=== PATIENT | male | born 1935 | race Asian ===

== ENCOUNTER 2016-11-11 16:00 | Inpatient (IN) | payer MEDICARE, MEDICAID ==
[~2016-11-11] VITALS: Ht 167.6 cm; Wt 63.5 kg
[~2016-11-11 16:00] MED LIST changes: -ASPI81TA2 PO; -CETI-102 PO; -CINA30TA PO; -LEVO500T15 PO; -MUPI22OI7 TP; -PREG75CA PO; -SEVE800T8 PO
--- NOTE | 2016-11-11 16:05 | NUR ---
BIBRA FROM HD-- DUE TO RIGHT FOOR PAIN SP RIGHT FOOT FIFTH TOE AMPUTATION BY MD STOUT. 11/20, NON RADIATING. NO CHEST PAIN, NO SOB. PATIENT'S SKIN IS WARM TO TOUCH AND NON DIAPHORETIC. AFEBRILE. GOWNED PT AND PLACED ON TELE MONITOR
[2016-11-11 16:32] LABS: BASOPHILS % (AUTO) 0.6 % (0.0-2.0); EOSINOPHILS # (AUTO) 0.1 /CMM (0.0-0.7); EOSINOPHILS % (AUTO) 2.2 % (0.0-6.0); HEMATOCRIT 35 % (39-51); HEMOGLOBIN 10.6 g/dL (13.5-17.5); LYMPHOCYTES # (AUTO) 0.3 /CMM (0.8-4.8); LYMPHOCYTES % (AUTO) 7.7 % (20.0-44.0); MEAN CORPUSCULAR HEMOGLOBIN 26 PG (26.0-33.0); MEAN CORPUSCULAR HGB CONC 31 g/dl (31.0-36.0); MEAN CORPUSCULAR VOLUME 85 fL (80-96); MONOCYTES # (AUTO) 0.4 /CMM (0.1-1.30); MONOCYTES % (AUTO) 10.1 % (2.0-12.0); NEUTROPHILS # (AUTO) 3.2 /CMM (1.8-8.9); NEUTROPHILS % (AUTO) 79.4 % (43.0-81.0); PLATELET COUNT (AUTO) 138 /CMM (150-450); RDW COEFFICIENT OF VARIATION 17.6 (11.5-15.0); RED BLOOD CELL COUNT(AUTO) 4.05 MIL/uL (4.5-6.0)
[2016-11-11 16:45] LABS: CARBON DIOXIDE 34 mmol/L (21-32); CHLORIDE 101 mmol/L (98-107); CREATININE 3.4 mg/dL (0.6-1.3); GLUCOSE 130 mg/dL (74-106); POTASSIUM 3.7 mmol/L (3.5-5.1); SODIUM SERUM 138 mmol/L (136-145); UREA NITROGEN, BLOOD 33 mg/dL (7-18)
[2016-11-11 16:49] LABS: TROPONIN I 0.081 ng/mL (0.00-0.056)
[2016-11-11 16:52] LABS: ALANINE AMINOTRANSFERASE 10 U/L (12-78); ALBUMIN 2.6 g/dL (3.4-5.0); ALKALINE PHOSPHATASE 95 U/L (46-116); ASPARTATE AMINOTRANSFERASE 20 U/L (15-37); BILIRUBIN,DIRECT 0.2 mg/dL (0.0-0.2); BILIRUBIN,TOTAL 0.5 mg/dL (0.2-1.0); TOTAL PROTEIN, SERUM 8.9 g/dL (6.4-8.2)
[2016-11-11 17:20] LABS: INR 1.25 (0.87-1.13); PROTHROMBIN TIME 13.6 SECS (9.5-12.7)
[2016-11-11] MEDS ORDERED: MORPHINE SULFATE INJ 2 MG/ML DISP.SYRIN IV ONE (18:00)
[2016-11-11] MEDS ORDERED: ONDANSETRON HCL/PF 4 MG/2 ML VIAL ONE (18:00)
[2016-11-11] MEDS ORDERED: VANCOMYCIN 1 GM in IV D5W 250 ML IV ONE (18:00)
[2016-11-11] MEDS ORDERED: PIPERACILLIN /TAZOBACTAM 2.25 G in IV D5W 50 ML IV ONE (18:00)
[2016-11-11] MEDS ORDERED: ONDANSETRON HCL/PF - ER 4 MG/2 ML VIAL IV ONE (18:00)
[2016-11-11] MEDS ORDERED: MORPHINE SULFATE INJ 4 MG/ML DISP.SYRIN ONE (18:01)
[2016-11-11] MEDS ORDERED: MAG HYDROX/AL HYDROX/SIMETH 30 ML UDC PO PRN (18:30)
[2016-11-11] MEDS ORDERED: MAGNESIUM HYDROXIDE 30 ML UDC PO PRN (18:30)
[2016-11-11] MEDS ORDERED: ACETAMINOPHEN 325 MG TABLET PO PRN (18:30)
[2016-11-11] MEDS: CLOPIDOGREL BISULFATE 75 MG TABLET PO SCH ×2 (18:30→19:46)
[2016-11-11] MEDS ORDERED: Z GUARD REMEDY 2 OZ OINT TP PRN (18:30)
[2016-11-11] MEDS ORDERED: NIFEdipine XL 60 MG TAB PO SCH (18:30)
[2016-11-11] MEDS ORDERED: ONDANSETRON HCL/PF 4 MG/2 ML VIAL IVP PRN (18:30)
[2016-11-11] MEDS: PANTOPRAZOLE 40 MG TABLET.DR PO SCH ×2 (18:30→19:47)
[2016-11-11] MEDS ORDERED: AMLODIPINE BESYLATE 5 MG TABLET PO SCH (18:30)
[2016-11-11] MEDS ORDERED: HYDROCODONE/APAP 5/325MG 1 EACH TABLET PO PRN (18:30)
[2016-11-11] MEDS ORDERED: ZOLPIDEM TARTRATE 5 MG TABLET PO PRN (18:30)
--- NOTE | 2016-11-11 18:45 | NUR ---
patient's needs attended.Medicated forpain as ordered
--- NOTE | 2016-11-11 18:46 | NUR ---
Reportgiven to minh Villa
[2016-11-11] MEDS ORDERED: FEE PK DOSING 1 MIN EA MC ONE (18:50)
[2016-11-11] MEDS ORDERED: VANCOMYCIN 500 MG in IV D5W 100 ML IV PRN (19:00)
--- NOTE | 2016-11-11 19:40 | NUR ---
MS RN NOTE RECEIVED PATIENT FROM DAY SHIFT, PATIENT IS ALERT AND ORIENTEDX3, COMPLAINS OF PAIN ON RIGHT FOOT, GETTING OXYGEN 3L/MIN VIA NC. MULTIPLE DRY SCABS AND DISCOLORATION NOTED ON BLE, RIGHT TOE IS COVERED WITH SX DRESSING S/P PINKY TOE AMPUTATION, PER PATIENT DR SAID DO NOT OPEN IT UNTIL SEEN BY DR AGAIN, PICTURES TAKEN EXCEPT ON RIGHT TOE WOUND. IV ON LEFT FA IS PATENT AND INTACT, HL ONLY. AV SHUNT PRESENT ON LEFT THIGH. SRX2, BED IN LOW POSITION, CALL LIGHT WITHIN REACH, WILL CONTINUE TO MONITOR PATIENT.
[2016-11-11] MEDS: HYDROMORPHONE INJ 2 MG/ML DISP.SYRIN IV PRN (19:48)
[2016-11-11] MEDS: THEOPHYLLINE ANHYDROUS 300 MG TAB.SR.12H PO SCH ×2 (19:48→20:00)
--- NOTE | 2016-11-11 19:50 | NUR ---
MS RN NOTE PATIENT COMPLAINS OF PAIN ON RIGHT TOE 8/10, DILAUDID 1MG IVP GIVEN. WILL MONITOR EFFECTIVENESS.
[2016-11-11 20:00] VITALS: BP 110/64
[2016-11-11] MEDS: CIPROFLOXACIN HCL 0.3% 5 ML BOTTLE LEFTEYE SCH (21:06)
--- NOTE | 2016-11-11 21:20 | NUR ---
MS RN NOTE PATIENT REFUSED TO TAKE ALL OF PO MEDS, RISKS OF NOT TAKING MEDS AND TEACHING PROVIDED, STILL HE INSISTED THAT HE DOESN'T NEED TO TAKE THEM, WASTED THE MEDS ON OMNICELL AND NOTIFIED DR. GRANGER ABOUT PATIENT'S REFUSAL TO MEDS, HE MADE AWARE.
[2016-11-11] MEDS: SIMVASTATIN 10 MG TABLET PO SCH (22:00)
[2016-11-11] MEDS: OLANZAPINE 2.5 MG TABLET PO SCH (22:00)
[2016-11-12 00:08] VITALS: BP 134/69
[2016-11-12] MEDS: PIPERACILLIN /TAZOBACTAM 2.25 G in IV D5W 50 ML IV SCH ×3 (01:54→17:36)
[2016-11-12] MEDS: HYDROMORPHONE INJ 2 MG/ML DISP.SYRIN IV PRN (02:57)
[2016-11-12 07:26] LABS: EOSINOPHILS % (AUTO) 0.1 % (0.0-6.0); HEMATOCRIT 42 % (39-51); HEMOGLOBIN 12.7 g/dL (13.5-17.5); LYMPHOCYTES # (AUTO) 0.3 /CMM (0.8-4.8); LYMPHOCYTES % (AUTO) 2.6 % (20.0-44.0); MEAN CORPUSCULAR HEMOGLOBIN 27 PG (26.0-33.0); MEAN CORPUSCULAR HGB CONC 31 g/dl (31.0-36.0); MEAN CORPUSCULAR VOLUME 88 fL (80-96); MONOCYTES % (AUTO) 7.8 % (2.0-12.0); NEUTROPHILS # (AUTO) 11.1 /CMM (1.8-8.9); NEUTROPHILS % (AUTO) 89.5 % (43.0-81.0); PLATELET COUNT (AUTO) 175 /CMM (150-450); RDW COEFFICIENT OF VARIATION 18.6 (11.5-15.0); RED BLOOD CELL COUNT(AUTO) 4.71 MIL/uL (4.5-6.0); WHITE BLOOD COUNT (AUTO) 12.4 K/uL (4.3-11.0)
[2016-11-12] MEDS: PANTOPRAZOLE 40 MG TABLET.DR PO SCH (07:30)
--- NOTE | 2016-11-12 07:30 | NUR ---
RN NOTES RECEIVED PT. PT IS ASLEEP AND IN BED. A/OX3. 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 IV ACCESS LOCATED ON LEFT FOREARM, SL. AV SHUNT ON LEFT THIGH. SAFETY MEASURES IN PLACE. WILL CONTINUE TO MONITOR.
[2016-11-12 08:00] VITALS: BP 134/68
[2016-11-12] MEDS: CIPROFLOXACIN HCL 0.3% 5 ML BOTTLE LEFTEYE SCH ×4 (09:00→21:42)
[2016-11-12] MEDS: CLOPIDOGREL BISULFATE 75 MG TABLET PO SCH (09:00)
[2016-11-12] MEDS: THEOPHYLLINE ANHYDROUS 300 MG TAB.SR.12H PO SCH ×2 (09:00→21:00)
--- NOTE | 2016-11-12 09:53 | NUR ---
RN NOTE PT REFUSES ALL AM MEDICATION.
[2016-11-12 09:58] LABS: ALANINE AMINOTRANSFERASE 18 U/L (12-78); ALBUMIN 2.8 g/dL (3.4-5.0); ALKALINE PHOSPHATASE 106 U/L (46-116); ASPARTATE AMINOTRANSFERASE 28 U/L (15-37); BILIRUBIN,TOTAL 0.5 mg/dL (0.2-1.0); CALCIUM, SERUM 8.6 mg/dL (8.5-10.1); CARBON DIOXIDE 31 mmol/L (21-32); CHLORIDE 96 mmol/L (98-107); CREATININE 3.9 mg/dL (0.6-1.3); GLUCOSE 155 mg/dL (74-106); MAGNESIUM 2.6 mg/dL (1.8-2.4); PHOSPHORUS 6.6 mg/dL (2.5-4.9); POTASSIUM 4.9 mmol/L (3.5-5.1); SODIUM SERUM 136 mmol/L (136-145); TOTAL PROTEIN, SERUM 10.1 g/dL (6.4-8.2); UREA NITROGEN, BLOOD 38 mg/dL (7-18)
[2016-11-12 10:02] LABS: CHOLESTEROL 68 mg/dL (<200); HDL CHOLESTEROL 38 mg/dL (40-60); LDL 24 mg/dL (0-99); TRIGLYCERIDES 50 mg/dL (30-150)
--- NOTE | 2016-11-12 10:28 | NUR ---
WOUND CARE CONSULT PATIENT BEING FOLLOWED BY DR MALCOLM DPM, WOUND CARE WILL DEFER WOUND TREATMENT PLAN TO DPM AT THIS TIME.
[2016-11-12] MEDS ORDERED: ALBUMIN 25% 25 GM in PREMIX 1 EA IV SCH (15:00)
[2016-11-12] MEDS ORDERED: ALBUMIN 25% 25 GM in PREMIX 1 EA IV PRN (15:30)
[2016-11-12] MEDS ORDERED: INSULIN REGULAR, HUMAN 100 UNIT/ML 3 ML VIAL SQ PRN (15:30)
[2016-11-12] MEDS ORDERED: DEXTROSE 50%-WATER 50 ML DISP.SYRIN IV PRN (15:30)
[2016-11-12 16:57] VITALS: BP 73/51
[2016-11-12] MEDS: BLOOD SUGAR DIAGNOSTIC 1 EACH STRIP IN SCH ×2 (17:37→21:43)
[2016-11-12] MEDS ORDERED: VANCOMYCIN 1 GM in IV D5W 250 ML IV ONE (18:00)
--- NOTE | 2016-11-12 18:30 | NUR ---
RN CLOSING NOTE PT IS AWAKE AND IN BED. A/O X 3. NO S/S OF DISTRESS OR SOB. PATIENT C/O PAIN ON RIGHT ARM. RIGHT ARM CURRENTLY SPLINTED. ALL PATIENT NEEDS MET. SAFETY MEASURES IN PLACE. CALL LIGHT WITHIN REACH. WILL ENDORSE TO TERMINAL OPERATIONS MANAGER FOR WAYNE Addendum: 11/12/16 at 1835 by SHAUNA BRYANT RIGHT ARM IS NOT IN A SPLINT, NO C/O PAIN IN THE AREA. 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
--- NOTE | 2016-11-12 19:30 | NUR ---
MS MANZANO OPENING NOTES: PATIENT IN BED, AOX3, CURRENTLY ON ROOM AIR, BREATHING EVEN AND UNLABORED. BREATH SOUNDS DIMINISHED. PATIENT APPEARS UNCOOPERATIVE, SAYING THAT HE WANTS TO BE LEFT ALONE. PIV OVER LFA G20 INTACT AND PATENT TO FLUSH. PATIENT HAS L THIGH AV SHUNT, WITH CLEAN AND INTACT DRESSING. DRESSING OVER R FOOT INTACT AND CLEAN, OFFLOADED ON PILLOWS. PROVIDED FOR COMFORT AND SAFETY. BED IN LOWEST AND LOCKED POSITION, SIDERAILS UP X3. BED ALARM ON. WILL CONT TO MONITOR. Addendum: 11/13/16 at 0015 by ELBA ANDERSON RN CORRECTION: PATIENT HAS L THIGH HD CATHETER WITH CLEAN AND INTACT DRESSING.
[2016-11-12 20:00] VITALS: BP 97/60
--- NOTE | 2016-11-12 20:00 | NUR ---
RN NOTES: PATIENT INITIALY REFUSING VS TO BE CHECKED, HOWEVER, EXPLAINED TO PATIENT NEED FOR VS TO BE MONITORED. PER PATIENT, HE "WAS NOT BEING MONITORED" AND THAT "HE WILL MITCHEL". PATIENT WAS FINALLY CONVINCED TO HAVE VS CHECKED. O2 SAT AT 88-91%, ADMINISTERED O2 VIA NC, AND REQUESTED TO PATIENT TO KEEP NC ON.
[2016-11-12] MEDS: OLANZAPINE 2.5 MG TABLET PO SCH (21:48)
[2016-11-12] MEDS: SIMVASTATIN 10 MG TABLET PO SCH (21:48)
--- NOTE | 2016-11-12 21:55 | NUR ---
RN NOTES: PATIENT'S BLOOD SUGAR CHECKED AT 134 MG/DL, PATIENT REFUSED INSULIN COVERAGE. PATIENT ALSO REFUSED PO MEDICATIONS. PATIENT'S RISKS AND BENEFITS EXPLAINED, PATIENT STILL REFUSED. PER PATIENT, HE NEVER TAKES INSULIN. WILL CONT TO MONITOR.
--- NOTE | 2016-11-12 23:00 | NUR ---
RN NOTES: SPOKE TO DR SANTOS, INFORMED HER THAT PATIENT REFUSED PO MEDS AND INSULIN COVERAGE. NNO FROM .
[2016-11-13] VITALS (7 sets, daily range): BP systolic 81–112; BP diastolic 36–64
--- NOTE | 2016-11-13 01:30 | NUR ---
RN NOTES: PATIENT ACCIDENTALLY PULLED OUT IV. REINSERTED NEW IV LINE OVER RAC G 22.
[2016-11-13] MEDS: PIPERACILLIN /TAZOBACTAM 2.25 G in IV D5W 50 ML IV SCH ×3 (01:48→17:29)
--- NOTE | 2016-11-13 06:00 | NUR ---
RN NOTES: PT'S BLOOD SUGAR CHECKED AT 106 MG/DL. NO INSULIN COVERAGE NEEDED AT THIS TIME.
--- NOTE | 2016-11-13 06:15 | NUR ---
RN NOTES: PATIENT'S BP CHECKED AT 87/49, HR: 66, O2 SAT : 96% ON O2 AT 2 LPM VIA NC. PATIENT IS AOX3, NO CHANGE IN MENTAL STATUS, BREATHING EVEN AND UNLABORED. PAGED EPIC DISTANCE EDUCATION TEACHER, DR SANTOS, RE PATIENT'S LOW BP.
[2016-11-13] MEDS: BLOOD SUGAR DIAGNOSTIC 1 EACH STRIP IN SCH ×4 (06:36→21:22)
--- NOTE | 2016-11-13 06:41 | NUR ---
RN NOTES: RECHECKED BP AT 106/57, HR: 62.
--- NOTE | 2016-11-13 06:42 | NUR ---
MS RN CLOSING NOTES: PATIENT IN BED, AOX3, ON O2 AT 3LPM VIA NC, BREATHING EVEN AND UNLABORED, BUT BREATH SOUNDS ARE DIMINISHED AT LOWER LUNG SHARPE. PIV OVER RAC G 22 INTACT AND PATENT TO FLUSH. L THIGH HD CATHETER WITH CLEAN AND INTACT DRESSING. PATIENT STILL NON COMPLIANT WITH MEDICATIONS. BLOOD SUGAR CHECKED AT 106 MG/DL. PROVIDED FOR COMFORT AND SAFETY. MORNING CARE RENDERED. BED IN LOWEST AND LOCKED POSITION, SIDERAILS UP X3. BED ALARMS ON. WILL ENDORSE TO AM RN FOR WAYNE.
--- NOTE | 2016-11-13 06:46 | NUR ---
RN NOTES: RECEIVED CALL BACK FROM DR SANTOS. INFORMED MD OF PREVIOUS BPs, AND THAT PATIENT IS AOX3. NNO GIVEN BY .
[2016-11-13 07:33] LABS: CALCIUM, SERUM 8.4 mg/dL (8.5-10.1); CARBON DIOXIDE 30 mmol/L (21-32); CHLORIDE 99 mmol/L (98-107); CREATININE 3.6 mg/dL (0.6-1.3); GLUCOSE 104 mg/dL (74-106); POTASSIUM 5.4 mmol/L (3.5-5.1); SODIUM SERUM 136 mmol/L (136-145); UREA NITROGEN, BLOOD 32 mg/dL (7-18)
--- NOTE | 2016-11-13 07:42 | NUR ---
RN MS NOTES RECEIVED PATIENT IN BED,A/OX3 AND VERBALLY RESPONSIVE. NO APPARENT DISTRESS NOTED. DENIES PAIN, NO SOB NOTED, ON 2L O2 VIA NC. IV LINE ON RIGHT AC PATENT, L THIGH HD CATH PATENT. ALL NEEDS MET, KEPT CLEAN AND DRY, CALL LIGHT WITHIN REACH.
--- NOTE | 2016-11-13 08:30 | NUR ---
RN MS NOTES INFORMED DR GRANGER OF PATIENTS LOW BP WITH NEW ORDERS FOR NS 500ML BOLUS. ORDERS NOTED AND CARRIED OUT.
[2016-11-13] MEDS: DAKINS QUARTER STRENGTH (0.125%) 480 ML BOTTLE TOP SCH (09:25)
[2016-11-13] MEDS: THEOPHYLLINE ANHYDROUS 300 MG TAB.SR.12H PO SCH ×2 (09:25→21:22)
[2016-11-13] MEDS: CLOPIDOGREL BISULFATE 75 MG TABLET PO SCH (09:25)
[2016-11-13] MEDS: CIPROFLOXACIN HCL 0.3% 5 ML BOTTLE LEFTEYE SCH ×4 (09:26→21:22)
[2016-11-13] MEDS: PANTOPRAZOLE 40 MG TABLET.DR PO SCH (09:26)
[2016-11-13] MEDS: CADEXOMER IODINE 40 GM TUBE TP SCH (09:26)
[2016-11-13] MEDS ORDERED: IV NS 0.9% 500 ML IV ONE (10:00)
[2016-11-13 15:19] LABS: BASOPHILS # (AUTO) 0.1 /CMM (0.0-0.2); BASOPHILS % (AUTO) 0.9 % (0.0-2.0); EOSINOPHILS # (AUTO) 0.1 /CMM (0.0-0.7); HEMATOCRIT 40 % (39-51); LYMPHOCYTES # (AUTO) 0.3 /CMM (0.8-4.8); MEAN CORPUSCULAR HEMOGLOBIN 26 PG (26.0-33.0); MEAN CORPUSCULAR HGB CONC 30 g/dl (31.0-36.0); MEAN CORPUSCULAR VOLUME 88 fL (80-96); MONOCYTES # (AUTO) 0.8 /CMM (0.1-1.30); MONOCYTES % (AUTO) 13.6 % (2.0-12.0); NEUTROPHILS # (AUTO) 4.4 /CMM (1.8-8.9); NEUTROPHILS % (AUTO) 78.5 % (43.0-81.0); PLATELET COUNT (AUTO) 151 /CMM (150-450); RDW COEFFICIENT OF VARIATION 18.5 (11.5-15.0); RED BLOOD CELL COUNT(AUTO) 4.54 MIL/uL (4.5-6.0); WHITE BLOOD COUNT (AUTO) 5.6 K/uL (4.3-11.0)
[2016-11-13] MEDS ORDERED: LACTOBACILLUS RHAMNOSUS GG 1 EACH CAP.SPRINK PO SCH (17:00)
--- NOTE | 2016-11-13 17:30 | NUR ---
RN MS NOTES PATIENT HAD A BLACK WALLET WITH 150$ THOMSON AND CREDIT CARDS AT BED SIDE. PATIENT HAS EPISODES OF CONFUSION BELONGINGS SENT TO [facility]E.
--- NOTE | 2016-11-13 18:31 | NUR ---
RN MS CLOSING NOTES PATIENT IN BED, NO APPARENT DISTRESS NOTED, DENIES PAIN DENIES SOB. ALL DUE MEDS GIVEN, ALL NEEDS MET, KEPT CLEAN AND DRY. RAC IN PATENT, WILL ENDORSE CARE TO PM SHIFT.
--- NOTE | 2016-11-13 19:37 | NUR ---
RN NOTE RECEIVED REPORT. PT UP IN BED, AWAKE AND ORIENTATED X3. NO S/S OF ANY DISTRESS AT THIS TIME. NO C/O PAIN OR DISCOMFORT. IV INTACT AND PATENT, WILL CONT TO MONITOR.
--- NOTE | 2016-11-13 21:15 | NUR ---
rn note dr walter in to see patient. dressing changed by .
[2016-11-13] MEDS: OLANZAPINE 2.5 MG TABLET PO SCH (21:22)
[2016-11-13] MEDS: SIMVASTATIN 10 MG TABLET PO SCH (21:22)
--- NOTE | 2016-11-13 21:30 | NUR ---
RN NOTE PT BS 136, HE IS REFUSING INSULIN COVERAGE DESPITE TEACHIG AND ENCOURAGEMENT X3
[2016-11-14] MEDS: PIPERACILLIN /TAZOBACTAM 2.25 G in IV D5W 50 ML IV SCH ×2 (01:19→11:44)
[2016-11-14] MEDS: BLOOD SUGAR DIAGNOSTIC 1 EACH STRIP IN SCH ×3 (06:21→17:30)
--- NOTE | 2016-11-14 06:34 | NUR ---
RN NOTE NO SIGNIFICANT CHANGES OVERNIGHT. PT IS RESTING IN BED WITH EYES CLOSED, NO S/S OF ANY DISTRESS AT THIS TIME. IV INTACT AND PATENT. CALL LIGHT IN REACH. WILL F/U WITH DAY SHIFT FOR WAYNE.
[2016-11-14 06:57] LABS: CALCIUM, SERUM 8.6 mg/dL (8.5-10.1); CARBON DIOXIDE 30 mmol/L (21-32); CHLORIDE 98 mmol/L (98-107); CREATININE 4.3 mg/dL (0.6-1.3); GLUCOSE 102 mg/dL (74-106); POTASSIUM 4.9 mmol/L (3.5-5.1); SODIUM SERUM 134 mmol/L (136-145); UREA NITROGEN, BLOOD 41 mg/dL (7-18)
--- NOTE | 2016-11-14 07:59 | NUR ---
RN MS NOTES RECEIVED PATIENT IN BED, VERBALLY RESPONSIVE, IN NO APPARENT DISTRESS. ON 2L O2 VIA NC, DENIES SOB, DENIES PAIN.RAC IV PATENT, NOTED WITH LEFT THIGH HD CATH. ALL NEEDS MET, CALL LIGHT WITHIN REACH.
[2016-11-14 08:00] VITALS: BP 103/64
[2016-11-14] MEDS ORDERED: MUPIROCIN OINT 2% 22 GM TUBE SCH (09:00)
--- NOTE | 2016-11-14 09:00 | NUR ---
RN MS NOTES PATIENT REFUSED DIALYSIS, DR GRANGER AN DR MARR AWARE. PER DR TEJINDER ORDONEZ FOR PATIENT TO RECEIVE DIALYSIS TOMORROW, PATIENT WILL BE DISCHARGED TODAY.
[2016-11-14] MEDS: THEOPHYLLINE ANHYDROUS 300 MG TAB.SR.12H PO SCH (09:44)
[2016-11-14] MEDS: PANTOPRAZOLE 40 MG TABLET.DR PO SCH (09:44)
[2016-11-14] MEDS: CLOPIDOGREL BISULFATE 75 MG TABLET PO SCH (09:44)
[2016-11-14] MEDS: DAKINS QUARTER STRENGTH (0.125%) 480 ML BOTTLE TOP SCH (09:44)
[2016-11-14] MEDS: CADEXOMER IODINE 40 GM TUBE TP SCH (09:45)
[2016-11-14] MEDS: CIPROFLOXACIN HCL 0.3% 5 ML BOTTLE LEFTEYE SCH ×3 (09:46→17:00)
--- NOTE | 2016-11-14 12:33 | NUR ---
RN MS NOTES PATIENT REFUSED BLOOD SUGAR CHECK X 3 TIMES. EXPLAINED RISKS STILL REFUSED. MD AWARE PT IS NON COMPLIANT.
[2016-11-14 16:00] VITALS: BP 128/66
--- NOTE | 2016-11-14 17:00 | NUR ---
RN MS NOTES PATIENT REFUSED BS CHECK X 3 TIMES
--- NOTE | 2016-11-14 18:15 | NUR ---
RN MS CLOSING NOTES PATIENT LEFT IN STABLE CONDITION, VIA AMBULANCE. PATIENT VERBALLY RESPONSIVE, NO APPARENT DISTRESS NOTED, DENIES PAIN, DENIES SOB.ALL DUE MEDS GIVEN, ALL NEEDS MET. WOUND TX TO RIGHT FOOT DONE, PICTURES TAKEN FOR THE CHART. PER IESHA FOR 4 SEASONS PATIENT'S DIALYSIS HAS BEEN ARRANGED FOR TOMORROW. REPORT GIVEN TO SHAWN MANZANO, INFORMED HER THAT PATIENT WILL BE ON VANCO X6 WEEKS, TO BE GIVEN AT DIALYSIS CENTER. PATIENT'S BELONGINGS REVIEWED WITH PATIENT EVERYTHING ACCOUNTED FOR. PATIENTS'S WALLET WITH 150$ THOMSON AND CREDIT CARDS GIVEN BACK TO PATIENT. COUNTED MONEY WITH PATIENT AND QUILL BUNCHER AND SORTER.PATIENTS WHEEL CHAIR ALSO WITH PATIENT. PATIENT SIGNED THE BELONGINGS LIST. DISCHARGE INSTRUCTIONS REVIEWED WITH PATIENT HE STATED UNDERSTANDING. DISCHARGE PACKET GIVEN TO ASSOCIATE PROFESSOR OF SOCIOLOGY.IV LINE DISCONTINUED NO S/S OF INFECTION NOTED.
== END 2016-11-14 18:15 | DRG 637 ==
LOC: ER 16:01 → TELE 18:23 → MED 11-12 04:51
PROVIDERS: ADMIT Internal Medicine; ATTEND Internal Medicine
PROC: 5A1D60Z (ICD-10-PCS; principal; 2016-11-12)
DX: E11.69 Type 2 diabetes mellitus with other specified complication (principal); I21.4 Non-ST elevation (NSTEMI) myocardial infarction; I50.33 Acute on chronic diastolic (congestive) heart failure; G93.40 Encephalopathy, unspecified; M86.9 Osteomyelitis, unspecified; I13.2 Hypertensive heart and chronic kidney disease with heart failure and with stage 5 chronic kidney disease, or end stage renal disease; J84.9 Interstitial pulmonary disease, unspecified; E11.52 Type 2 diabetes mellitus with diabetic peripheral angiopathy with gangrene; J90 Pleural effusion, not elsewhere classified; Z99.2 Dependence on renal dialysis; N18.6 End stage renal disease; E11.42 Type 2 diabetes mellitus with diabetic polyneuropathy; E11.22 Type 2 diabetes mellitus with diabetic chronic kidney disease; Z95.5 Presence of coronary angioplasty implant and graft; Z89.429 Acquired absence of other toe(s), unspecified side; Z87.891 Personal history of nicotine dependence; Z79.899 Other long term (current) drug therapy; L97.529 Non-pressure chronic ulcer of other part of left foot with unspecified severity; L97.519 Non-pressure chronic ulcer of other part of right foot with unspecified severity; K59.00 Constipation, unspecified; I48.91 Unspecified atrial fibrillation; I70.0 Atherosclerosis of aorta; I27.2 Other secondary pulmonary hypertension; I25.10 Atherosclerotic heart disease of native coronary artery without angina pectoris; G89.29 Other chronic pain; F01.50 Vascular dementia, unspecified severity, without behavioral disturbance, psychotic disturbance, mood disturbance, and anxiety; E86.0 Dehydration; E78.5 Hyperlipidemia, unspecified; E11.621 Type 2 diabetes mellitus with foot ulcer; D63.8 Anemia in other chronic diseases classified elsewhere; E83.9 Disorder of mineral metabolism, unspecified
CPT/HCPCS: 36415; 71010-TC; 73620-TC; 80048-TC; 80053-TC; 80061-TC; 80076-TC; 80202-TC; 82962-TC; 83605-TC; 83735-TC; 84100-TC; 84484-TC; 85025-TC; 85652-TC; 85730-TC; 87040-TC; 87081-TC; 90935-TC; 97001-TC; A4216; A4606; A6402; J1170; J1815; J2270; J2405; J2543; J3370; J7040; J7060; P9047; Z7610

== ENCOUNTER → 2016-11-11 | Outpatient (CLI) | payer MEDICARE, MEDICAID ==
[~2016-11-11] MED LIST: AMLO5TAB2 PO; ASPI81TA2 PO; CETI-102 PO; CINA30TA PO; CIPR5DRO18 LEFTEYE; CLOP75TA2 PO; LEVO500T15 PO; MUPI22OI7 TP; NIFE60TA9 PO; OLAN2.5T3 PO; PRED5DRO17 LEFTEYE; PREG75CA PO; SEVE800T8 PO; SIMV10TA6 PO; ZOLP10TA6 PO; [UNRECOGNIZED DRUG - CODE] PO
== END | disposition home health service (06) ==
LOC: WOU 08:20
PROVIDERS: ATTEND Podiatrist Foot & Ankle Surgery
PROC: 0Y6X0Z0 Detachment at Right 5th Toe, Complete, Open Approach (ICD-10-PCS; principal; 2016-11-11)
DX: E11.52 Type 2 diabetes mellitus with diabetic peripheral angiopathy with gangrene (principal); E11.621 Type 2 diabetes mellitus with foot ulcer; L97.514 Non-pressure chronic ulcer of other part of right foot with necrosis of bone; L03.031 Cellulitis of right toe; E11.69 Type 2 diabetes mellitus with other specified complication; M86.8X7 Other osteomyelitis, ankle and foot; Z87.891 Personal history of nicotine dependence; E11.22 Type 2 diabetes mellitus with diabetic chronic kidney disease; I12.0 Hypertensive chronic kidney disease with stage 5 chronic kidney disease or end stage renal disease; N18.6 End stage renal disease; Z99.2 Dependence on renal dialysis; Z95.0 Presence of cardiac pacemaker; L97.419 Non-pressure chronic ulcer of right heel and midfoot with unspecified severity
CPT/HCPCS: 28820; A6402; 11044; 11047; 87070-TC; 87075-TC; 88305-TC; 88311-TC; 88312-TC

== ENCOUNTER 2016-11-21 08:57 | Outpatient (CLI) | payer MEDICARE, MEDICAID | END 2016-11-21 23:59 | disposition home health service (06) | LOC: WOU 08:57 | PROVIDERS: ATTEND Podiatrist Foot & Ankle Surgery | DX: E11.621 Type 2 diabetes mellitus with foot ulcer (principal); L97.514 Non-pressure chronic ulcer of other part of right foot with necrosis of bone; L97.419 Non-pressure chronic ulcer of right heel and midfoot with unspecified severity; E11.52 Type 2 diabetes mellitus with diabetic peripheral angiopathy with gangrene; E11.42 Type 2 diabetes mellitus with diabetic polyneuropathy; E11.22 Type 2 diabetes mellitus with diabetic chronic kidney disease; I12.0 Hypertensive chronic kidney disease with stage 5 chronic kidney disease or end stage renal disease; N18.6 End stage renal disease; Z99.2 Dependence on renal dialysis; Z95.0 Presence of cardiac pacemaker; Z79.899 Other long term (current) drug therapy; Z87.891 Personal history of nicotine dependence; E11.69 Type 2 diabetes mellitus with other specified complication; M86.8X7 Other osteomyelitis, ankle and foot | CPT/HCPCS: 11044; 11047; A6402 ==

== ENCOUNTER 2016-11-28 08:30 | Outpatient (CLI) | payer MEDICARE, MEDICAID | END 2016-11-28 23:59 | disposition home health service (06) | LOC: WOU 08:30 | PROVIDERS: ATTEND Podiatrist Foot & Ankle Surgery | DX: E11.52 Type 2 diabetes mellitus with diabetic peripheral angiopathy with gangrene (principal); E11.621 Type 2 diabetes mellitus with foot ulcer; L97.514 Non-pressure chronic ulcer of other part of right foot with necrosis of bone; L97.411 Non-pressure chronic ulcer of right heel and midfoot limited to breakdown of skin; E11.22 Type 2 diabetes mellitus with diabetic chronic kidney disease; N18.6 End stage renal disease; Z99.2 Dependence on renal dialysis; M86.8X7 Other osteomyelitis, ankle and foot; B95.62 Methicillin resistant Staphylococcus aureus infection as the cause of diseases classified elsewhere; L03.115 Cellulitis of right lower limb; I25.10 Atherosclerotic heart disease of native coronary artery without angina pectoris; Z79.899 Other long term (current) drug therapy | CPT/HCPCS: 11042; 11044; 11047; 87070; 87075; 87077; A6402 ==

== ENCOUNTER 2016-12-05 08:18 | Outpatient (CLI) | payer MEDICARE, MEDICAID | END 2016-12-05 23:59 | disposition home or self-care (01) | LOC: WOU 08:18 | PROVIDERS: ATTEND Podiatrist Foot & Ankle Surgery | DX: E11.52 Type 2 diabetes mellitus with diabetic peripheral angiopathy with gangrene (principal); E11.42 Type 2 diabetes mellitus with diabetic polyneuropathy; E11.621 Type 2 diabetes mellitus with foot ulcer; L97.411 Non-pressure chronic ulcer of right heel and midfoot limited to breakdown of skin; L97.511 Non-pressure chronic ulcer of other part of right foot limited to breakdown of skin; L97.514 Non-pressure chronic ulcer of other part of right foot with necrosis of bone; B95.62 Methicillin resistant Staphylococcus aureus infection as the cause of diseases classified elsewhere; B48.8 Other specified mycoses; E11.22 Type 2 diabetes mellitus with diabetic chronic kidney disease; N18.6 End stage renal disease; Z99.2 Dependence on renal dialysis; I25.10 Atherosclerotic heart disease of native coronary artery without angina pectoris; Z95.0 Presence of cardiac pacemaker | CPT/HCPCS: 11042; 11044; A6402 ×2 ==

== ENCOUNTER 2016-12-11 17:51 | Inpatient (IN) | payer MEDICARE, MEDICAID ==
[~2016-12-11] VITALS: Ht 165.1 cm; Wt 64.0 kg
--- NOTE | 2016-12-11 18:07 | NUR ---
NEW IV STARTED ON RFA, 20 G. BLOOD DRAWN AND SENT TO LAB.
--- NOTE | 2016-12-11 18:10 | NUR ---
PATIENT BIB RA D/T LOW BP DURING HD. PATIENT STATING HIS SYSTOLIC BLOOD PRESSURE DROPPED TO THE 60'S AND HE DID NOT FINISH HD. PATIENT IS A/OX 4. BREATHING EVEN AND UNLABORED ON ROOM AIR. NO SOB. SAFETY AND COMFORT MEAURES IN PLACE. AWAITING MD ORDERS.
[2016-12-11 18:22] LABS: BASOPHILS % (AUTO) 1.2 % (0.0-2.0); EOSINOPHILS # (AUTO) 0.1 /CMM (0.0-0.7); EOSINOPHILS % (AUTO) 3.3 % (0.0-6.0); HEMATOCRIT 38 % (39-51); HEMOGLOBIN 11.6 g/dL (13.5-17.5); LYMPHOCYTES # (AUTO) 0.4 /CMM (0.8-4.8); LYMPHOCYTES % (AUTO) 13.3 % (20.0-44.0); MEAN CORPUSCULAR HEMOGLOBIN 26 PG (26.0-33.0); MEAN CORPUSCULAR HGB CONC 30 g/dl (31.0-36.0); MEAN CORPUSCULAR VOLUME 87 fL (80-96); MONOCYTES # (AUTO) 0.4 /CMM (0.1-1.30); MONOCYTES % (AUTO) 14.6 % (2.0-12.0); NEUTROPHILS % (AUTO) 67.6 % (43.0-81.0); PLATELET COUNT (AUTO) 113 /CMM (150-450); RDW COEFFICIENT OF VARIATION 19.1 (11.5-15.0); RED BLOOD CELL COUNT(AUTO) 4.38 MIL/uL (4.5-6.0); WHITE BLOOD COUNT (AUTO) 2.9 K/uL (4.3-11.0)
[2016-12-11] MEDS ORDERED: CINA30TA PO (18:31)
[2016-12-11] MEDS ORDERED: PREG75CA PO (18:31)
[2016-12-11] MEDS ORDERED: CETI-102 PO (18:31)
[2016-12-11] MEDS ORDERED: SEVE800T8 PO (18:31)
[2016-12-11] MEDS ORDERED: ASPI81TA2 PO (18:31)
[2016-12-11 18:33] LABS: CALCIUM, SERUM 8.6 mg/dL (8.5-10.1); CARBON DIOXIDE 37 mmol/L (21-32); CHLORIDE 98 mmol/L (98-107); GLUCOSE 150 mg/dL (74-106); POTASSIUM 3.9 mmol/L (3.5-5.1); SODIUM SERUM 137 mmol/L (136-145); UREA NITROGEN, BLOOD 19 mg/dL (7-18)
[2016-12-11 18:36] LABS: INR 1.21 (0.87-1.13); PROTHROMBIN TIME 12.7 SECS (9.5-12.7)
[2016-12-11 18:39] LABS: ALANINE AMINOTRANSFERASE < 6 U/L (12-78); ALBUMIN 2.5 g/dL (3.4-5.0); ALKALINE PHOSPHATASE 101 U/L (46-116); ASPARTATE AMINOTRANSFERASE 15 U/L (15-37); BILIRUBIN,DIRECT 0.2 mg/dL (0.0-0.2); BILIRUBIN,TOTAL 0.5 mg/dL (0.2-1.0); TOTAL PROTEIN, SERUM 8.8 g/dL (6.4-8.2)
[2016-12-11 18:41] LABS: TROPONIN I 0.186 ng/mL (0.00-0.056)
--- NOTE | 2016-12-11 19:03 | NUR ---
CALLED DR MALCOLM @1900, NO ANSWER, LEFT VOICE MESSAGE ASKING FOR A CALL BACK.
--- NOTE | 2016-12-11 19:13 | NUR ---
DR BORGES SPOKE WITH DR MALCOLM @ 2361 FOR CONSULT.
--- NOTE | 2016-12-11 19:21 | NUR ---
REPORT RECEIVED BY NATACHA ADAM FOR WAYNE.
--- NOTE | 2016-12-11 19:23 | NUR ---
XRAY AT BEDSIDE.
--- NOTE | 2016-12-11 19:45 | NUR ---
MD BORGES IS SPEAKING WITH MD BORGES Addendum: 12/11/16 at 1953 by JULIANA MD BORGES IS SPEAKING WITH MP CHANG FOR ADMISSION
--- NOTE | 2016-12-11 19:53 | NUR ---
BED 112.2
[2016-12-11] MEDS ORDERED: VANCOMYCIN 1 GM in IV D5W 250 ML IV ONE (20:00)
[2016-12-11] MEDS ORDERED: ASPIRIN 325 MG TABLET PO ONE (20:00)
--- NOTE | 2016-12-11 20:27 | NUR ---
REPORT GIVEN PHYLLIS FOR BED 112-2 / WAYNE
--- NOTE | 2016-12-11 20:49 | NUR ---
PT TRASNFERED TO TELE BED 112-2 PER ACLS PROTOCOL.
[2016-12-11 21:00] VITALS: BP 97/53
--- NOTE | 2016-12-11 21:00 | NUR ---
RN NOTES ADMITTED A 81 YEAR OLD MALE FROM EMERGENCY DEPARTMENT VIA STRETCHER WITH NO RESPIRATORY DISTRESS OR SHORTNESS OF BREATH. BREATHING EVEN AND UNLABORED. ON 02 @2LPM VIA NASAL CANNULA TOLERATING WELL. VITAL SIGNS CHECKED WNL. ALERT AND ORIENTED, VERBALLY ABLE TO COMMUNICATE NEEDS. SKIN ASSESSMENT DONE. NEEDS ATTENDED. WILL CONTINUE TO MONITOR.
[2016-12-11 22:00] VITALS: BP 100/52
[2016-12-11] MEDS ORDERED: ZOLPIDEM TARTRATE 10 MG TABLET PO PRN (22:30)
[2016-12-11] MEDS ORDERED: ONDANSETRON HCL/PF 4 MG/2 ML VIAL IVP PRN (22:30)
[2016-12-11] MEDS ORDERED: Z GUARD REMEDY 2 OZ OINT TP PRN (22:30)
[2016-12-11] MEDS ORDERED: cetrizine 10 MG TABLET PO PRN (22:30)
[2016-12-11] MEDS ORDERED: cetrizine 10 MG TABLET ONE (23:26)
[2016-12-12] VITALS (7 sets, daily range): BP systolic 102–131; BP diastolic 56–77
[2016-12-12 04:59] LABS: BASOPHILS % (AUTO) 0.7 % (0.0-2.0); EOSINOPHILS # (AUTO) 0.1 /CMM (0.0-0.7); EOSINOPHILS % (AUTO) 3.4 % (0.0-6.0); HEMATOCRIT 38 % (39-51); HEMOGLOBIN 11.5 g/dL (13.5-17.5); LYMPHOCYTES # (AUTO) 0.4 /CMM (0.8-4.8); LYMPHOCYTES % (AUTO) 12.3 % (20.0-44.0); MEAN CORPUSCULAR HEMOGLOBIN 27 PG (26.0-33.0); MEAN CORPUSCULAR HGB CONC 31 g/dl (31.0-36.0); MEAN CORPUSCULAR VOLUME 89 fL (80-96); MONOCYTES # (AUTO) 0.4 /CMM (0.1-1.30); MONOCYTES % (AUTO) 12.6 % (2.0-12.0); NEUTROPHILS # (AUTO) 2.2 /CMM (1.8-8.9); PLATELET COUNT (AUTO) 125 /CMM (150-450); RED BLOOD CELL COUNT(AUTO) 4.24 MIL/uL (4.5-6.0); WHITE BLOOD COUNT (AUTO) 3.1 K/uL (4.3-11.0)
--- NOTE | 2016-12-12 05:03 | NUR ---
RN NOTES RECEIVED A CALL FROM PI IN [place] REGARDING DX OF HYPOTENSION FOR POSSIBLE SEPSIS, TO INCLUDE IN H&P THE REASON WHY PATIENT WAS NOT GIVEN THE REQUIRED FLUID FOR SEPSIS. PATIENT IS ON DIALYSIS. CALLED MD VIA EXCHANGE @5:00, MD JENSEN RETURNED CALL @5:02 AND MADE AWARE..
[2016-12-12 05:18] LABS: ALANINE AMINOTRANSFERASE 8 U/L (12-78); ALBUMIN 2.4 g/dL (3.4-5.0); ALKALINE PHOSPHATASE 92 U/L (46-116); ASPARTATE AMINOTRANSFERASE 13 U/L (15-37); BILIRUBIN,TOTAL 0.4 mg/dL (0.2-1.0); CALCIUM, SERUM 8.5 mg/dL (8.5-10.1); CARBON DIOXIDE 35 mmol/L (21-32); CHLORIDE 101 mmol/L (98-107); CREATININE 3.3 mg/dL (0.6-1.3); GLUCOSE 136 mg/dL (74-106); MAGNESIUM 2.2 mg/dL (1.8-2.4); PHOSPHORUS 3.6 mg/dL (2.5-4.9); POTASSIUM 4.2 mmol/L (3.5-5.1); SODIUM SERUM 138 mmol/L (136-145); TOTAL PROTEIN, SERUM 8.6 g/dL (6.4-8.2); UREA NITROGEN, BLOOD 21 mg/dL (7-18)
[2016-12-12 05:26] LABS: CHOLESTEROL 61 mg/dL (<200); HDL CHOLESTEROL 39 mg/dL (40-60); LDL 20 mg/dL (0-99); TRIGLYCERIDES 24 mg/dL (30-150)
--- NOTE | 2016-12-12 06:43 | NUR ---
RN CLOSING NOTES PATIENT RESTING COMFORTABLY IN BED. NO DISTRESS NOTED, NO COMPLAINT OF PAIN. VITAL SIGNS WNL. NO SIGNIFICANT CHANGE OF CONDITION. WILL CONTINUE TO ENDORSE TO AM SHIFT FOR CONTINUITY OF CARE.
[2016-12-12] MEDS: ASPIRIN 81 MG TAB.CHEW PO SCH (08:10)
[2016-12-12] MEDS: CINACALCET HCL 30 MG TABLET PO SCH (08:10)
[2016-12-12] MEDS: SEVELAMER CARBONATE 800 MG TABLET PO SCH ×3 (08:10→18:32)
[2016-12-12] MEDS ORDERED: VANCOMYCIN 500 MG in IV D5W 100 ML IV PRN (08:30)
[2016-12-12] MEDS ORDERED: FEE PK DOSING 1 MIN EA MC ONE (08:31)
--- NOTE | 2016-12-12 09:38 | NUR ---
RN NOTES DR ROCK AT BEDSIDE PT WAS SEEN AND EVALUATED, PLAN IS DEBRIDEMENT OF R FOOT WOUND. WILL OBTAIN CONSENT
[2016-12-12] MEDS: MUPIROCIN OINT 2% 22 GM TUBE TP SCH ×2 (09:46→21:33)
[2016-12-12] MEDS ORDERED: LIDOCAINE 5% OINT 35.44 GM TUBE TP PRN (10:00)
--- NOTE | 2016-12-12 11:00 | NUR ---
RN NOTES CALLED [facility], PAGED DR MARR, PER PHARMACY BENEFIT MANAGER DR SEGOVIA IS GROUNDMAN/LINEMAN, PAGED TO REPORT HEMOGLOBIN OF 7.1, AWAITING FOR CALL BACK
[2016-12-12] MEDS: PIPERACILLIN /TAZOBACTAM 2.25 G in IV D5W 50 ML IV SCH ×2 (11:43→18:32)
--- NOTE | 2016-12-12 12:07 | NUR ---
WOUND CARE CONSULT: PT PRESENTS WITH NECROTIC WOUNDS OF RT LOWER EXTREMITY PRESENT ON ADMISSION. PT ADAMANTLY REFUSED FULL SKIN ASSESSMENT. PT ON SAFETY HARBOR ISOFLEX LOW AIRLOSS BED. ALL SKIN PROTECTION MEASURES IN PLACE AND DISCUSSED WITH NURSING STAFF. DR MALCOLM FOLLOWING PT FOR LOWER EXTREMITIES. WILL SEE PRN. IN AGREEMENT WITH PLAN OF CARE.
--- NOTE | 2016-12-12 13:15 | NUR ---
RN NOTES PT NOTED EYES RED, PER PT IT BOTHERS HIM. ALSO NOTED WITH ABDOMINAL DISTENTION, PT DENIES PAIN NUT HE SAID HE DOESN'T FEEL GOOD ABOUT IT. PLACED A CALL TO DR ORTA, SPOKE WITH MD PER MD TO GIVE BLEPH 10 EYE GTTS GIVE 2 GTTS TO BOTH EYES, Q4H X3 DAYS. AND ULTRASOUND OF ABDOMEN. ORDERS READ BACK NOTED AND CARRIED OUT
[2016-12-12] MEDS: SULFACETAMIDE 10% OPHTH 15 ML BOTTLE EACHEYE SCH ×3 (14:37→21:32)
[2016-12-12] MEDS ORDERED: RENAL NOVASOURCE (8OZ) 1 EA BOX PO PRN (17:30)
[2016-12-12] MEDS: RENAL NOVASOURCE (8OZ) 1 EA BOX PO PRN (18:33)
--- NOTE | 2016-12-12 20:46 | NUR ---
RN NOTES RECEIVED PATIENT IN BED, NOTED WITH DIFFICULTY BREATHING. GET PATIENT UP PUT IN THE WHEEL CHAIR., INCREASE 02, CHANGE NASAL CANULA TO REBREATHER MASK, SEEN BY RT AND O2SAT WENT UP FROM 91% TO 98%. ALLOWED PATIENT TO STAY IN THE CHAIR FOR 30 MINUTES THEN PUT BACK TO BED AND PUT NASAL CANNULA BAG AT 3LPM, PATIENT SAID HE IS COMFORTABLE NOW. CONTINUOUS MONITORING DONE.
[2016-12-12] MEDS: OLANZAPINE 2.5 MG TABLET PO SCH (21:31)
[2016-12-12] MEDS: PREGABALIN 25 MG CAPSULE PO SCH (21:32)
[2016-12-13] VITALS: BP 98/62
[2016-12-13] MEDS: SULFACETAMIDE 10% OPHTH 15 ML BOTTLE EACHEYE SCH ×6 (02:30→22:10)
[2016-12-13] MEDS: PIPERACILLIN /TAZOBACTAM 2.25 G in IV D5W 50 ML IV SCH ×3 (02:30→20:56)
[2016-12-13 04:00] VITALS: BP 110/63
--- NOTE | 2016-12-13 06:48 | NUR ---
RN CLOSING NOTES RESTING COMFORTABLY IN BED. NO COMPLAINT OF PAIN OR DISCOMFORT. VITAL SIGNS WNL. KEPT CLEAN AND DRY. WILL CONTINUE TO ENDORSE TO AM SHIFT FOR CONTINUITY OF CARE
--- NOTE | 2016-12-13 07:00 | NUR ---
RN INITIAL NOTES PT IS IN BED, A/OX3, ON NASAL CANNULA 3LPM O2. JUNCTIONAL ON TELE. ON REGULAR DIET, WITH NOVASOURCE BOX BID. HIBISCLEN BATH X5 DAYS, WILL OBTAIN CONSENT OF WOUND DEBRIDEMENT. WILL HAVE HD TODAY, WILL CONTINUE TO MONITOR V/S AND LABS. BED LOCKED, SIDE RAILS UP, CALL LIGHT WITHIN REACH.
[2016-12-13 07:29] LABS: BASOPHILS % (AUTO) 0.6 % (0.0-2.0); EOSINOPHILS # (AUTO) 0.1 /CMM (0.0-0.7); HEMATOCRIT 39 % (39-51); HEMOGLOBIN 11.9 g/dL (13.5-17.5); LYMPHOCYTES # (AUTO) 0.3 /CMM (0.8-4.8); LYMPHOCYTES % (AUTO) 7.5 % (20.0-44.0); MEAN CORPUSCULAR HEMOGLOBIN 27 PG (26.0-33.0); MEAN CORPUSCULAR HGB CONC 31 g/dl (31.0-36.0); MEAN CORPUSCULAR VOLUME 88 fL (80-96); MONOCYTES # (AUTO) 0.5 /CMM (0.1-1.30); MONOCYTES % (AUTO) 14.4 % (2.0-12.0); NEUTROPHILS # (AUTO) 2.7 /CMM (1.8-8.9); NEUTROPHILS % (AUTO) 73.5 % (43.0-81.0); PLATELET COUNT (AUTO) 112 /CMM (150-450); RDW COEFFICIENT OF VARIATION 20.2 (11.5-15.0); RED BLOOD CELL COUNT(AUTO) 4.38 MIL/uL (4.5-6.0); WHITE BLOOD COUNT (AUTO) 3.7 K/uL (4.3-11.0)
[2016-12-13 07:34] LABS: CALCIUM, SERUM 8.5 mg/dL (8.5-10.1); CARBON DIOXIDE 34 mmol/L (21-32); CHLORIDE 98 mmol/L (98-107); CREATININE 4.2 mg/dL (0.6-1.3); GLUCOSE 110 mg/dL (74-106); POTASSIUM 5.2 mmol/L (3.5-5.1); SODIUM SERUM 137 mmol/L (136-145); UREA NITROGEN, BLOOD 31 mg/dL (7-18)
[2016-12-13 08:00] VITALS: BP 115/57
[2016-12-13] MEDS: SEVELAMER CARBONATE 800 MG TABLET PO SCH ×3 (08:00→17:14)
--- NOTE | 2016-12-13 08:00 | NUR ---
ALL [facility] CLEARED FOR PT SAFETY
[2016-12-13] MEDS ORDERED: MORPHINE SULFATE INJ 2 MG/ML DISP.SYRIN IM PRN (08:30)
[2016-12-13] MEDS: CINACALCET HCL 30 MG TABLET PO SCH (09:00)
[2016-12-13] MEDS: ASPIRIN 81 MG TAB.CHEW PO SCH (09:00)
[2016-12-13] MEDS: MUPIROCIN OINT 2% 22 GM TUBE TP SCH ×3 (09:17→22:10)
--- NOTE | 2016-12-13 09:17 | NUR ---
PT REFUSED MORNING MEDS, OFFERED 3X, EXPLAINED THE RISK AND BENEFIT OF MEDICATIONS AND PT STILL REFUSED. UNABLE TO OBTAIN CONSENT FOR WOUND DEBRIDEMENT. WILL TRY TO AGAIN LATER.
[2016-12-13] MEDS: ACETAMINOPHEN 325 MG TABLET PO PRN (10:58)
[2016-12-13 12:00] VITALS: BP 100/58
[2016-12-13 16:00] VITALS: BP 104/43
[2016-12-13] MEDS: MORPHINE SULFATE INJ 2 MG/ML DISP.SYRIN IV PRN (17:14)
--- NOTE | 2016-12-13 18:50 | NUR ---
RN CLOSING NOTES NO SIGNIFICANT CHANGES DURING AM SHIFT. S/P DEBRIDEMENT OF RIGHT TOE, WITH MODERATE AMOUNT OF BLEEDING PUT PRESSURE ON THE SITE. MANAGED PAIN WITH MORPHINE, HAVING DIALYSIS AT THIS MOMENT, B/P IS STABLE, RFA IV SITE IS PATENT, NO S/SX OF INFECTION/INFILTRATION NOTED. KEPT PT CLEAN AND DRY, ASSISTED WITH ADL'S, ALL SAFETY MEASURES MET, CALL LIGHT WITHIN REACH, WILL ENDORSE TO PM NURSE FOR CONTINUATION OF CARE.
--- NOTE | 2016-12-13 19:30 | NUR ---
TELE/RN OPENING NOTES PT RECEIVED, EYES CLOSED, CURRENTLY RECEIVED DIALYSIS. ON 3LPM O2 VIA NC, BREATHING EVEN AND UNLABORED. NO S/S OF DISTRESS. PT APPEARS COMFORTABLE AND IN NO APPARENT PAIN. ON TELE MONITOR SHOWING SINUS RHYTHM WITH PVC'S HR AT 80. DRESSING TO RIGHT FOOT INTACT, SOILED WITH MODERATE AMOUNT OF BLOOD, S/P WOUND DEBRIDEMENT. IV TO RFA PATENT AND INTACT. BED IN LOW/LOCKED POSITION WITH CALL LIGHT IN REACH. SIDE RAILS UPX2. WILL CONTINUE TO MONITOR
[2016-12-13 20:00] VITALS: BP 80/41
--- NOTE | 2016-12-13 20:51 | NUR ---
TELE/RN NOTES PT'S DIALYSIS ENDED. BP= 95/48, HR=74 1500CC OUT.
[2016-12-13] MEDS: OLANZAPINE 2.5 MG TABLET PO SCH (22:00)
[2016-12-13] MEDS: PREGABALIN 25 MG CAPSULE PO SCH (22:00)
--- NOTE | 2016-12-13 22:49 | NUR ---
TELE/RN NOTES PT REFUSING PM MEDS, BACTROBAN AND DRESSING CHANGE AT THIS TIME. EDUCATED PT X3 REGARDING DRESSING CHANGE AND KEEPING SITE CLEAN. PT STILL REFUSING. WILL TRY AGAIN LATER
[2016-12-14] VITALS (7 sets, daily range): BP systolic 81–117; BP diastolic 50–68
[2016-12-14] MEDS: SULFACETAMIDE 10% OPHTH 15 ML BOTTLE EACHEYE SCH ×6 (01:00→21:00)
[2016-12-14] MEDS: PIPERACILLIN /TAZOBACTAM 2.25 G in IV D5W 50 ML IV SCH ×3 (04:05→18:44)
[2016-12-14] MEDS: MORPHINE SULFATE INJ 2 MG/ML DISP.SYRIN IV PRN ×2 (04:27→10:28)
--- NOTE | 2016-12-14 05:34 | NUR ---
TELE/RN NOTES PT AGREED TO BED BATH AND DRESSING CHANGE TO RIGHT FOOT. PRE-MEDICATED PT WITH PRN MORPHINE. PT STILL COMPLAINING OF SEVERE PAIN 01/20 TO RIGHT FOOT. PAGED CHIDI FOR ADDITIONAL PAIN MEDICATION ORDER. LATEST BP POST DRESSING CHANGE ML=284/66, HR=83 Addendum: 12/14/16 at 0720 by RAMO HERNÁNDEZ RN RECEIVED ORDERED FOR MP CHANG FOR ADDITIONAL MORPHINE 2MG IV ONE TIME DOSE DUE TO PT'S REQUEST FOR MORE PAIN MEDICATION. ONCE CRN OVERRODE MEDICATION AND I WENT INTO PT'S ROOM TO ADMINISTER, PT WAS CALM AND REFUSED MORPHINE AT THIS TIME. CRN RETURNED MEDICATION, I WITNESSED.
[2016-12-14] MEDS ORDERED: MORPHINE SULFATE INJ 2 MG/ML DISP.SYRIN IM ONE (06:00)
--- NOTE | 2016-12-14 07:15 | NUR ---
MANUFACTURING ENGINEERING TECHNICIAN NOTES RECEIVED PATIENT IN BED, AWAKE. A/O X3. APPEARS ANXIOUS. BREATHING EVEN AND NON LABORED, NO SOB. ON TELE MONITOR. PER REPORT, PATIENT WITH EPISODE OF REFUSING MEDICATIONS. RIGHT FOOT DRESSING IN PLACE, NO BLEEDING NOTED. PLACE CALL LIGHT WITHIN REACH. ON CONTACT ISOLATION OBSERVE. WILL CONT TO MONITOR
--- NOTE | 2016-12-14 07:44 | NUR ---
TELE/RN CLOSING NOTES PT AWAKE, SITTING UP IN BED. A/OX3, ON 2LPM O2 VIA NC, BREATHING EVEN AND UNLABORED. CALM AT THIS TIME. REFUSED PRN ONE TIME DOSE OF MORPHINE. ON TELE MONITOR SHOWING SINUS RHYTHM WITH PVC'S, HR AT 83. IV TO RFA PATENT AND INTACT. DRESSING TO RIGHT FOOT CHANGED AND BACTROBAN APPLIED. REFUSED AM LABS THIS AM. BED IN LOW/LOCKED POSITION, SIDE RAILS UPX2. ENDORSED TO AM SHIFT WAYNE.
[2016-12-14] MEDS: SEVELAMER CARBONATE 800 MG TABLET PO SCH ×4 (08:00→21:44)
[2016-12-14] MEDS: MUPIROCIN OINT 2% 22 GM TUBE TP SCH ×2 (08:16→22:13)
[2016-12-14] MEDS: ASPIRIN 81 MG TAB.CHEW PO SCH (08:16)
[2016-12-14] MEDS: CINACALCET HCL 30 MG TABLET PO SCH (08:16)
--- NOTE | 2016-12-14 08:17 | NUR ---
PATIENT REFUSING AM MEDICATIONS, EXPLAINED IMPORTANCE, RISK AND BENEFITS OF THE MEDICATION TO THE PATIENT, STILL REFUSED X3. MEDICATIONS WAISTED. CHARGED NURSE INFORMED.
--- NOTE | 2016-12-14 08:27 | NUR ---
ENDORSE TO LAUREN FOR CONTINUITY OF CARE.
[2016-12-14] MEDS ORDERED: VANCOMYCIN 500 MG in IV D5W 100 ML IV ONE (12:00)
--- NOTE | 2016-12-14 16:00 | NUR ---
Patient refused labwork x5 today.
--- NOTE | 2016-12-14 18:39 | NUR ---
Endorse to night nurse at this time.
[2016-12-14] MEDS ORDERED: oxyCODONE HCL SR 10MG TAB.SR.12H PO ONE (21:54)
[2016-12-14] MEDS: OLANZAPINE 2.5 MG TABLET PO SCH (22:00)
[2016-12-14] MEDS: PREGABALIN 25 MG CAPSULE PO SCH (22:00)
--- NOTE | 2016-12-14 22:00 | NUR ---
RN PT REFUSED PT CARE, REFUSED HIS 2200 MEDICATION AND EYE DROPS. TX DONE AND PICTURES TAKEN AND PLACED IN THE CHART.
[2016-12-14] MEDS ORDERED: oxyCODONE/APAP (5/325 MG) 1 UDTAB TABLET ONE (22:01)
[2016-12-14] MEDS: oxyCODONE/APAP (5/325 MG) 1 UDTAB TABLET PO PRN (22:12)
--- NOTE | 2016-12-14 22:15 | NUR ---
RN PT COMPLAINT OF R LOWER EXTREMITY PAIN, PT REFUSED MORPHINE, STATED TYLENOL DOESNT HELP, SPOKE TO MP CHANG WITH NEW ORDER OF HYDROCODONE 10MG, AND D/C MORPHINE
[2016-12-15] VITALS: BP 109/71
[2016-12-15] MEDS: SULFACETAMIDE 10% OPHTH 15 ML BOTTLE EACHEYE SCH ×7 (00:46→21:56)
[2016-12-15] MEDS: PIPERACILLIN /TAZOBACTAM 2.25 G in IV D5W 50 ML IV SCH ×3 (02:44→18:15)
[2016-12-15 04:00] VITALS: BP 96/52
[2016-12-15 06:25] LABS: BASOPHILS # (AUTO) 0.1 /CMM (0.0-0.2); BASOPHILS % (AUTO) 1.3 % (0.0-2.0); EOSINOPHILS # (AUTO) 0.2 /CMM (0.0-0.7); EOSINOPHILS % (AUTO) 5.1 % (0.0-6.0); HEMATOCRIT 39 % (39-51); HEMOGLOBIN 11.8 g/dL (13.5-17.5); LYMPHOCYTES # (AUTO) 0.6 /CMM (0.8-4.8); LYMPHOCYTES % (AUTO) 12.7 % (20.0-44.0); MEAN CORPUSCULAR HEMOGLOBIN 27 PG (26.0-33.0); MEAN CORPUSCULAR HGB CONC 30 g/dl (31.0-36.0); MEAN CORPUSCULAR VOLUME 90 fL (80-96); MONOCYTES # (AUTO) 0.8 /CMM (0.1-1.30); MONOCYTES % (AUTO) 19.4 % (2.0-12.0); NEUTROPHILS # (AUTO) 2.7 /CMM (1.8-8.9); NEUTROPHILS % (AUTO) 61.5 % (43.0-81.0); PLATELET COUNT (AUTO) 105 /CMM (150-450); RDW COEFFICIENT OF VARIATION 19.9 (11.5-15.0); RED BLOOD CELL COUNT(AUTO) 4.33 MIL/uL (4.5-6.0); WHITE BLOOD COUNT (AUTO) 4.4 K/uL (4.3-11.0)
[2016-12-15 07:14] LABS: BAND % (MANUAL) 2 % (0.0-5.0); EOSINOPHILS % (MANUAL) 7 % (0-4); LYMPHOCYTES % (MANUAL) 16 % (16-48); MONOCYTES % (MANUAL) 19 % (0-11.0); NEUTROPHILS % (MANUAL) 56 (42-76)
--- NOTE | 2016-12-15 07:55 | NUR ---
RN NOTES RECEIVED PT RESTING IN BED, NO ACUTE DISTRESS NOTED. JEANNETTE RA WELL, NO SOB. SR WITH 1ST DEGREE AV BLOCK HR 68 AT THIS TIME. DENIES PAIN/DISCOMFORT. ALL NEEDS ATTENDED. WOUND DRESSING IN PLACE, INTACT. CALL LIGHT WITHIN REACH, WILL CONT TO MONITOR
[2016-12-15 08:00] VITALS: BP 95/53
[2016-12-15 08:33] LABS: ALANINE AMINOTRANSFERASE 8 U/L (12-78); ALKALINE PHOSPHATASE 79 U/L (46-116); ASPARTATE AMINOTRANSFERASE 15 U/L (15-37); BILIRUBIN,TOTAL 0.5 mg/dL (0.2-1.0); CALCIUM, SERUM 8.3 mg/dL (8.5-10.1); CARBON DIOXIDE 24 mmol/L (21-32); CHLORIDE 97 mmol/L (98-107); CREATININE 4.7 mg/dL (0.6-1.3); GLUCOSE 160 mg/dL (74-106); MAGNESIUM 2.4 mg/dL (1.8-2.4); PHOSPHORUS 5.5 mg/dL (2.5-4.9); POTASSIUM 5.4 mmol/L (3.5-5.1); SODIUM SERUM 134 mmol/L (136-145); TOTAL PROTEIN, SERUM 9.2 g/dL (6.4-8.2); UREA NITROGEN, BLOOD 33 mg/dL (7-18)
[2016-12-15] MEDS: CINACALCET HCL 30 MG TABLET PO SCH (09:14)
[2016-12-15] MEDS: VIT B CMPLX 3/FA/VIT C/BIOTIN 1 TAB TABLET PO SCH (09:14)
[2016-12-15] MEDS: MUPIROCIN OINT 2% 22 GM TUBE TP SCH ×3 (09:14→21:56)
[2016-12-15] MEDS: ASPIRIN 81 MG TAB.CHEW PO SCH (09:14)
[2016-12-15] MEDS: PROSOURCE / PROSTAT (PYXIS) 30 ML UDC GT SCH (09:14)
[2016-12-15 09:15] LABS: ALBUMIN 2.6 g/dL (3.4-5.0)
[2016-12-15] MEDS ORDERED: MORPHINE SULFATE INJ 4 MG/ML DISP.SYRIN IV ONE (10:30)
[2016-12-15] MEDS: SEVELAMER CARBONATE 800 MG TABLET PO SCH ×3 (11:04→12:59)
[2016-12-15 12:00] VITALS: BP 103/60
[2016-12-15] MEDS: RENAL NOVASOURCE (8OZ) 1 EA BOX PO PRN (12:55)
--- NOTE | 2016-12-15 13:00 | NUR ---
RN NOTES DR MALCOLM AT BEDSIDE, PERFORMED WOUND DEBRIDEMENT ON R FOOT WOUND. PT MEDICATED WITH MORPHINE 1 MG X1 ONLY ORDERED BY MD. PT TOLERATED PROCEDURE WELL DRESSING CLEAN DRY AND INTACT
[2016-12-15 16:00] VITALS: BP 92/61
[2016-12-15] MEDS: VANCOMYCIN 500 MG in IV D5W 100 ML IV PRN (17:09)
--- NOTE | 2016-12-15 19:10 | NUR ---
MS RN OPENING NOTES RECEIVED REPORT FROM RY MANZANO. PATIENT A&O X3. BREATHING EVEN AND UNLABORED, ON O2 3LPM VIA NC. PULSES PRESENT. RIGHT FOREARM IV #20 INTACT AND PATENT W/ DRESSING CDI, SL. LEFT FEMORAL HD CATH W/ DRESSING CDI. DENIES ANY PAIN OR DISCOMFORT @ THIS TIME. SAFETY MEASURES IN PLACE W/ SIDE RAILS UP, BED LOCKED IN LOWEST POSITION, BED ALARM ON & CALL LIGHT WITHIN REACH. WILL CONTINUE TO MONITOR.
[2016-12-15 20:00] VITALS: BP 86/57
[2016-12-15] MEDS: OLANZAPINE 2.5 MG TABLET PO SCH ×3 (21:55→23:20)
[2016-12-15] MEDS: PREGABALIN 25 MG CAPSULE PO SCH ×2 (21:55→22:00)
--- NOTE | 2016-12-15 22:33 | NUR ---
NATACHA NOTES PATIENT REFUSED ALL 9 & 10 PM MEDS. Addendum: 12/15/16 at 2235 by NUZHAT RAWLS RN CHARGE NURSE AWARE. RISKS AND BENEFITS EXPLAINED, STILL REFUSED. Addendum: 12/16/16 at 0506 by NUZHAT RAWLS RN PATIENT ASKED FOR ZYPREXA AROUND 11 PM DUE TO FEELING RESTLESS. STILL REFUSED 1 AM EYE DROPS W/ RISKS AND BENEFITS EXPLAINED.
[2016-12-16] MEDS: SULFACETAMIDE 10% OPHTH 15 ML BOTTLE EACHEYE SCH ×6 (01:00→22:01)
--- NOTE | 2016-12-16 03:00 | NUR ---
RN NOTES NEW IV SITE STARTED ON RIGHT FOREARM, GAUGE 20. PATIENT TOLERATED WELL.
[2016-12-16] MEDS: PIPERACILLIN /TAZOBACTAM 2.25 G in IV D5W 50 ML IV SCH ×2 (03:06→11:30)
[2016-12-16 04:00] VITALS: BP 88/42
--- NOTE | 2016-12-16 06:41 | NUR ---
RN NOTES PATIENT REFUSED AM LABS. WILL TRY AGAIN LATER.
[2016-12-16 08:00] VITALS: BP_SYST 90; BP_DIAS 50; BP_DIAS 51
[2016-12-16] MEDS: SEVELAMER CARBONATE 800 MG TABLET PO SCH ×3 (08:53→17:57)
[2016-12-16] MEDS: CINACALCET HCL 30 MG TABLET PO SCH (08:53)
[2016-12-16] MEDS: VIT B CMPLX 3/FA/VIT C/BIOTIN 1 TAB TABLET PO SCH (08:53)
[2016-12-16] MEDS: ASPIRIN 81 MG TAB.CHEW PO SCH (08:53)
[2016-12-16] MEDS: RENAL NOVASOURCE (8OZ) 1 EA BOX PO PRN (08:54)
[2016-12-16] MEDS: PROSOURCE / PROSTAT (PYXIS) 30 ML UDC GT SCH (08:58)
[2016-12-16] MEDS: MUPIROCIN OINT 2% 22 GM TUBE TP SCH ×2 (08:59→22:00)
--- NOTE | 2016-12-16 11:00 | NUR ---
RN NOTE RN NOTE PT REFUSED LABS TO BE DRAWN FOR THE SECOND TIME CLAIMING THAT HE IS LEAVING HOME SOON. DR SANTOS IS ABOUT TO DISCHARGE HIM.
[2016-12-16] MEDS ORDERED: MUPI22OI7 TP (12:23)
[2016-12-16] MEDS ORDERED: LEVO500T15 PO (12:23)
[2016-12-16 16:00] VITALS: BP 75/41
--- NOTE | 2016-12-16 16:00 | NUR ---
RN NOTE PT WAS SUPPOSE TO LEAVE TO [facility], BUT HIS ARRANGED TRANSPORTATION WAS [facility], WHICH PT REFUSED AND SAID HE COULD NOT GO BY [facility] CAR, AND HE NEEDS AN AMBULANCE. ATTEMPTED TO ARRANGE HIM AN AMBULANCE WITHOUT LUCK AND PT BECAME SORT OF BREATH, BP DROPPED TO 75/41 [facility], DR SANTOS NOTIFIED, HE ORDERED ABGs, AND HEMODIALYSIS. WILL CARRY OUT THE ORDERS.
[2016-12-16] MEDS: LEVOFLOXACIN (250MG) 250 MG TABLET PO SCH (17:56)
[2016-12-16] MEDS: ALBUMIN 25% 25 GM in PREMIX 1 EA IV PRN ×2 (17:59→18:00)
[2016-12-16 20:00] VITALS: BP 85/50
--- NOTE | 2016-12-16 20:30 | NUR ---
RN NOTES TRANSFERRED PT TO MY CARE. PT IS ALERT ORIENTED X 3 ABLE TO MAKE KNOWN NEEDS. WITH O2 3LPM VIA NC. NO IV SITE WITH FEMORAL HD CATH WITH CLEANED DRESSING. RLE WITH CLEANED DRESSING WELL. ENCOURAGED TO OFFLOAD EXT WITH PILLOWS. CALL LIGHT KEPT WITHIN EASY REACH. REPOSITIONED PT PT COMFORTABLE. PT REFUSED TO RE INSERT IV AT THIS TIME WILL TRY AGAIN LATER. BED IN LOCKED AND SECURED. BED ALARM KEPT ON. WILL CONTINUE TO MONITOR
[2016-12-16] MEDS: PREGABALIN 25 MG CAPSULE PO SCH (21:59)
[2016-12-16] MEDS: OLANZAPINE 2.5 MG TABLET PO SCH (21:59)
--- NOTE | 2016-12-16 21:59 | NUR ---
RN NOTES PT IS DUE FOR IV VANCOMYCIN AND IV ZOSYN BUT REFUSED TO RE-INSERT IV LINE. PT STARTED TO GET UPSET, INEFFECTIVE EXPLAINED THE RISK AND BENEFITS BUT PT TOOK ALL PO MEDS. ALL NEEDS ATTENDED.
[2016-12-17] MEDS: SULFACETAMIDE 10% OPHTH 15 ML BOTTLE EACHEYE SCH ×6 (01:34→21:20)
[2016-12-17 04:00] VITALS: BP 85/50
--- NOTE | 2016-12-17 06:33 | NUR ---
RN NOTES PT ASLEEP WELL ON BED. O2 3LPM VIA NC TOLERATED WELL. SATING 95%. STILL WITH EPISODE OF HYPOTENSION BUT PT IS ASYMPTOMATIC. PT REMAINED ALERT ORIENTED X 3 MAKE KNOWN NEED. COMMUNICATE WELL TO STAFF. STILL REFUSED FOR IV LINE AT THIS TIME AND BLOOD DRAWN. LAB WILL TRY AGAIN LATER. WILL ENDORSED CONTINUITY OF CARE TO AM NURSE.
[2016-12-17 08:00] VITALS: BP 90/51
[2016-12-17] MEDS: SEVELAMER CARBONATE 800 MG TABLET PO SCH ×4 (08:00→18:26)
[2016-12-17] MEDS: PROSOURCE / PROSTAT (PYXIS) 30 ML UDC GT SCH (09:00)
[2016-12-17] MEDS: ASPIRIN 81 MG TAB.CHEW PO SCH ×2 (09:00→09:19)
[2016-12-17] MEDS: CINACALCET HCL 30 MG TABLET PO SCH ×2 (09:00→09:19)
[2016-12-17] MEDS: VIT B CMPLX 3/FA/VIT C/BIOTIN 1 TAB TABLET PO SCH ×2 (09:00→09:19)
--- NOTE | 2016-12-17 09:00 | NUR ---
RN NOTE PT REFUSED BLOOD TO BE DRAWN, HOWEVER CONSENTED TO MIDLINE INSERTION.
[2016-12-17] MEDS: RENAL NOVASOURCE (8OZ) 1 EA BOX PO PRN (09:20)
[2016-12-17] MEDS: VANCOMYCIN 500 MG in IV D5W 100 ML IV PRN (09:20)
[2016-12-17] MEDS: MUPIROCIN OINT 2% 22 GM TUBE TP SCH ×2 (09:30→21:21)
[2016-12-17 12:00] VITALS: BP 100/30
[2016-12-17 16:00] VITALS: BP 91/15
[2016-12-17 20:00] VITALS: BP 135/68
--- NOTE | 2016-12-17 20:00 | NUR ---
ms rn notes received pts on bed awake alert ans responsive , no sob no distress no c/o pain at this time . v/s stable afebrile , all needs attended too call light within easy reach , safety precaution observed.all due medication given as ordered , on contact isolation mrsa nares and wound precautionary measures observed.will continue to monitor pts.
[2016-12-17] MEDS: OLANZAPINE 2.5 MG TABLET PO SCH (21:22)
[2016-12-17] MEDS: PREGABALIN 25 MG CAPSULE PO SCH (22:27)
[2016-12-18] MEDS: SULFACETAMIDE 10% OPHTH 15 ML BOTTLE EACHEYE SCH ×6 (01:13→21:36)
[2016-12-18 04:00] VITALS: BP_SYST 113; BP_SYST 125; BP_DIAS 40; BP_DIAS 59
--- NOTE | 2016-12-18 05:39 | NUR ---
ms rn notes pts refused blood draw and morning care , explain risk and benefits, still pts refusing will try again later will endorse to rn day shift .
--- NOTE | 2016-12-18 06:38 | NUR ---
ms rn notes pts remains on bed awake and responsive , again offer morning care and to do lab works pts still refused ,pts said hes going home , will endorse to rn day shift for continuity of care.
--- NOTE | 2016-12-18 07:45 | NUR ---
RN INITIAL NOTE RECEIVED PT FROM [facility] PM SHIFT. PT A/O X3 RESTING COMFORTABLY IN BED. PT MS NC 2L. IV OPAL MIDLINE PATENT AND INTACT. FEMORAL HD CATH AWAITING HD TODAY. WILL CONTINUE TO MONITOR CLOSELY.
[2016-12-18] MEDS: SEVELAMER CARBONATE 800 MG TABLET PO SCH ×3 (08:00→17:08)
[2016-12-18 08:18] VITALS: BP 99/60
[2016-12-18 09:00] VITALS: BP 99/60
[2016-12-18] MEDS: ASPIRIN 81 MG TAB.CHEW PO SCH (09:00)
[2016-12-18] MEDS: CINACALCET HCL 30 MG TABLET PO SCH (09:00)
[2016-12-18] MEDS: PROSOURCE / PROSTAT (PYXIS) 30 ML UDC GT SCH (09:00)
[2016-12-18] MEDS: VIT B CMPLX 3/FA/VIT C/BIOTIN 1 TAB TABLET PO SCH (09:00)
--- NOTE | 2016-12-18 09:19 | NUR ---
RN NOTE TRIED MULTIPLE ATTEMPTS TO GIVEN PATIENT MORNING MEDICATION. WENT IN ROOM @0815 PT WAS LETHARGIC. CAME BACK TO ROOM @ 0915 PATIENT PUSHED MEDICATION AND REFUSED TO TAKE IT. TRIED TO EDUCATE PATIENT ON IMPORTANCE BUT REFUSED. RETURNED MEDICATION TO [facility].
[2016-12-18] MEDS: MUPIROCIN OINT 2% 22 GM TUBE TP SCH ×2 (09:30→21:36)
[2016-12-18 12:00] VITALS: BP 89/42
[2016-12-18] MEDS: ALBUMIN 25% 25 GM in PREMIX 1 EA IV PRN (12:36)
[2016-12-18 13:08] LABS: BASOPHILS % (AUTO) 0.4 % (0.0-2.0); EOSINOPHILS # (AUTO) 0.1 /CMM (0.0-0.7); EOSINOPHILS % (AUTO) 2.8 % (0.0-6.0); HEMATOCRIT 34 % (39-51); HEMOGLOBIN 10.3 g/dL (13.5-17.5); LYMPHOCYTES # (AUTO) 0.4 /CMM (0.8-4.8); LYMPHOCYTES % (AUTO) 8.8 % (20.0-44.0); MEAN CORPUSCULAR HEMOGLOBIN 27 PG (26.0-33.0); MEAN CORPUSCULAR HGB CONC 30 g/dl (31.0-36.0); MEAN CORPUSCULAR VOLUME 89 fL (80-96); MONOCYTES # (AUTO) 0.4 /CMM (0.1-1.30); MONOCYTES % (AUTO) 8.8 % (2.0-12.0); NEUTROPHILS # (AUTO) 3.3 /CMM (1.8-8.9); NEUTROPHILS % (AUTO) 79.2 % (43.0-81.0); PLATELET COUNT (AUTO) 102 /CMM (150-450); RDW COEFFICIENT OF VARIATION 20.5 (11.5-15.0); RED BLOOD CELL COUNT(AUTO) 3.83 MIL/uL (4.5-6.0); WHITE BLOOD COUNT (AUTO) 4.1 K/uL (4.3-11.0)
[2016-12-18 13:11] LABS: CALCIUM, SERUM 7.5 mg/dL (8.5-10.1); CARBON DIOXIDE 33 mmol/L (21-32); CHLORIDE 99 mmol/L (98-107); CREATININE 4.2 mg/dL (0.6-1.3); GLUCOSE 107 mg/dL (74-106); MAGNESIUM 2.1 mg/dL (1.8-2.4); PHOSPHORUS 6.5 mg/dL (2.5-4.9); SODIUM SERUM 134 mmol/L (136-145); UREA NITROGEN, BLOOD 33 mg/dL (7-18)
[2016-12-18 13:31] LABS: POTASSIUM 6.8 mmol/L (3.5-5.1)
--- NOTE | 2016-12-18 14:00 | NUR ---
RN NOTE CALLED DR. SANTOS REPORTED POTASSIUM 6.8. PT C/O OF NO BM IN 4 DAYS. MD ORDERED DULCOLAX SUPP. [facility] HD NURSE @ BEDSIDE AWARE OF POTASSIUM WILL MAKE ADJUSTMENTS.
[2016-12-18] MEDS ORDERED: BISACODYL SUPP (10 MG) 10 MG/SUPP.RECT SUPP.RECT RC PRN (14:30)
[2016-12-18] MEDS: LEVOFLOXACIN (250MG) 250 MG TABLET PO SCH (14:56)
[2016-12-18] MEDS: oxyCODONE/APAP (5/325 MG) 1 UDTAB TABLET PO PRN (15:07)
[2016-12-18 16:00] VITALS: BP 113/59
[2016-12-18] MEDS: VANCOMYCIN 500 MG in IV D5W 100 ML IV PRN (17:07)
--- NOTE | 2016-12-18 19:00 | NUR ---
MS RN NOTES RECEIVED PTS ON BED SLEEPING AND LETHARGIC RESPONSIVE PTS NOTED MOUTH BREATHERO2 SATURATION OF 88% CHANGE O2 CANNULA TO FACE MASK, AT 6LITERS 0F O2 .WITH O2 SAT 99%V/S STABLE AFEBRILE ALL NEEDS ATTENDED TOO CALL LIGHT WITHIN REACH. TURN AND REPOSITION , KEPT PTS CLEAN DRY AND COMFORTABLE.WILL CONTINUE TO MONITOR PTS.
--- NOTE | 2016-12-18 19:08 | NUR ---
RN CLOSING NOTE REPORT GIVEN TO FROM [facility] PM SHIFT. PT A/O X2-3 RESTING COMFORTABLY IN BED. PT MS NC 3L. IV OPAL MIDLINE PATENT AND INTACT. FEMORAL HD CATH FOR HD. ALL SAFETY MEASURES IN PLACE.
[2016-12-18 20:00] VITALS: BP 120/89
[2016-12-18] MEDS: OLANZAPINE 2.5 MG TABLET PO SCH (22:00)
[2016-12-18] MEDS: PREGABALIN 25 MG CAPSULE PO SCH (22:00)
--- NOTE | 2016-12-18 22:00 | NUR ---
MS RN NOTES ZYPREXA AND LYRICA FOR 10PM DOSE NOT GIVEN AT THIS TIME , PTS STILL LETHARGIC CONTINUE ON FACEMASK DOWN TO 4 LITERS SATING 97% PTS IS RESPONSIVE MOVING HER HEADS , WILL CONTINUE TO MONITOR PTS .
[2016-12-19] VITALS (60 sets, daily range): BP systolic 59–161; BP diastolic 30–91
--- NOTE | 2016-12-19 00:43 | NUR ---
ms rn notes pts noted more alert this time, will continue to monitor pts .
[2016-12-19] MEDS: SULFACETAMIDE 10% OPHTH 15 ML BOTTLE EACHEYE SCH ×7 (01:25→20:25)
--- NOTE | 2016-12-19 07:10 | NUR ---
ms rn notes endorse pts to minh wright ,for continuity of care. pts still sleepy but easily arouse , blood works done awaiting for result.
[2016-12-19 07:31] LABS: BASOPHILS % (AUTO) 0.6 % (0.0-2.0); EOSINOPHILS % (AUTO) 0.3 % (0.0-6.0); HEMATOCRIT 36 % (39-51); HEMOGLOBIN 10.6 g/dL (13.5-17.5); LYMPHOCYTES # (AUTO) 0.3 /CMM (0.8-4.8); MEAN CORPUSCULAR HEMOGLOBIN 27 PG (26.0-33.0); MEAN CORPUSCULAR HGB CONC 30 g/dl (31.0-36.0); MEAN CORPUSCULAR VOLUME 91 fL (80-96); MONOCYTES # (AUTO) 0.7 /CMM (0.1-1.30); NEUTROPHILS # (AUTO) 4.3 /CMM (1.8-8.9); NEUTROPHILS % (AUTO) 80.1 % (43.0-81.0); PLATELET COUNT (AUTO) 97 /CMM (150-450); RDW COEFFICIENT OF VARIATION 19.7 (11.5-15.0); RED BLOOD CELL COUNT(AUTO) 3.96 MIL/uL (4.5-6.0); WHITE BLOOD COUNT (AUTO) 5.4 K/uL (4.3-11.0)
[2016-12-19 07:48] LABS: CALCIUM, SERUM 7.8 mg/dL (8.5-10.1); CARBON DIOXIDE 32 mmol/L (21-32); CHLORIDE 94 mmol/L (98-107); CREATININE 3.7 mg/dL (0.6-1.3); GLUCOSE 91 mg/dL (74-106); MAGNESIUM 2.2 mg/dL (1.8-2.4); PHOSPHORUS 6.2 mg/dL (2.5-4.9); SODIUM SERUM 133 mmol/L (136-145); UREA NITROGEN, BLOOD 26 mg/dL (7-18)
[2016-12-19] MEDS: SEVELAMER CARBONATE 800 MG TABLET PO SCH ×3 (08:00→17:22)
[2016-12-19 08:10] LABS: ABG BASE EXCESS 3.3 mmol/L; ABG OXYGEN SATURATION 89.4 % (92.0-98.5); ABG PCO2 94.9 mmHg (35.0-45.0); ABG PH 7.173 (7.350-7.450); AaDO2 24.7 mmHg; COHb 1.5 % (0.5-1.5); MetHb 0.8 % (0.0-1.5); O2Hb 87.3 % (94.0-97.0); SITE, ABG Right Radial
[2016-12-19 08:40] LABS: LYMPHOCYTES % (MANUAL) 3 % (16-48); MONOCYTES % (MANUAL) 7 % (0-11.0); NEUTROPHILS % (MANUAL) 90 (42-76)
--- NOTE | 2016-12-19 08:50 | NUR ---
RN NOTES: Patient received asleep, easily arousal. on oxygen NC 3.5l O2. Acc. to telephone messenger patient was non compliance with oxygen therapy, they have tried mask as well on 5 l O2 last night. According to night RN, patient was lethargic whole night, usually he is more alert, awake, oX4. Charge Nurse Aware. received orders for STAT ABG by Primary doctor by charge nurse. Stat ABG results came back critical at 0800. Dr. Santos made aware by RT John. I left message at Dr. Santos's office. Received orders to transfer ICU & start on Bipap. orders noted & carried out. 0859: patient transferred to ICU with ACLS protocol, report given to Greg at bedside.
--- NOTE | 2016-12-19 08:50 | NUR ---
PROPERTY CLAIMS MANAGER NOTES RECEIVED PATIENT TRANSFERRED TO ICU DUE ABNORMAL ABG , REQUIRES BIPAP , LETHARGIC , CONFUSED , BIPAP PLACED WITH SETTINGS ORDERED , AFIB 75 ON BEDSIDE MONITOR , R FOOT DRESSING C/D/ , B SOFT WRIST RESTRAINS PLACED PT IS REMOVING BIPAP , OPAL MIDLINE PATENT AND INTACT SL , R FEMORAL HD CATH C/D/ I , ALL NEEDS ATTENDED , BED ON LOW AND LOCKED POSITION , SIDE RAILS X3, HOB @ 35 , WILL CONTINUE TO MONITOR .
--- NOTE | 2016-12-19 08:54 | NUR ---
pt placed on bipap due to high pco2 95 and low ph 7.17, pao2 63 bipap settings bellow as order: ipap 18 epap 5 rate 10 spo2 35% breath sounds clear bilateral. Addendum: 12/19/16 at 0925 by ADILENE FIGUEROA RT Amended: Links added.
[2016-12-19] MEDS: PROSOURCE / PROSTAT (PYXIS) 30 ML UDC GT SCH (09:00)
[2016-12-19] MEDS: ASPIRIN 81 MG TAB.CHEW PO SCH (09:00)
[2016-12-19] MEDS: CINACALCET HCL 30 MG TABLET PO SCH (09:00)
[2016-12-19] MEDS: VIT B CMPLX 3/FA/VIT C/BIOTIN 1 TAB TABLET PO SCH (09:00)
--- NOTE | 2016-12-19 09:00 | NUR ---
DIGITAL MARKETING MANAGER NOTES PLACED PT ON BIPAP 18/5 , RATE 10 FIO2 35% WITH SPO2 OF 91% , PLACED ABG ORDER AFTER ONE HOUR . WILL CONTINUE TO MONITOR
[2016-12-19] MEDS: MUPIROCIN OINT 2% 22 GM TUBE TP SCH ×2 (09:06→21:21)
--- NOTE | 2016-12-19 09:14 | NUR ---
PURIFICATION OPERATOR NOTES CALLED [facility] , PAGED DR SANTOS , FOR LOW BP OF 65/55 , AWAITING FOR CALL BACK
--- NOTE | 2016-12-19 09:32 | NUR ---
ELECTRICAL ESTIMATOR NOTES RECEIVED A CALL FROM DR SANTOS , NOTIFIED PT WAS TRANSFERED TO ICU DUE TO RESPIRATORY FAILURE WITH ABNORMAL ABG , PT CURRENTLY ON BIPAP , BP OF 74/39 @ 0915 UPON RE ASSESSMENT BP OF 59/33 @ 0930 , PER MD START LEVOPHED DOUBLE CONCENTRATION TO KEEP MAP ABOVE 65 , PICC LINE INSERTION ORDERED
--- NOTE | 2016-12-19 09:37 | NUR ---
MINE EXPERT NOTES PO MEDS HELD , PT IS LETHARGIC , ON BIPAP , HIGH ASPIRATION RISK , DR SANTOS AWARE
[2016-12-19] MEDS ORDERED: NOREPINEPHRINE 16 MG in IV D5W 500 ML IV PRN (10:00)
[2016-12-19] MEDS ORDERED: NOREPINEPHRINE 8 MG in IV D5W 500 ML IV PRN (11:30)
--- NOTE | 2016-12-19 11:30 | NUR ---
OCCUPATIONAL THERAPY AIDE NOTES TASIA RN (PICCLINE NURSE ) UNABLE TO PLACE PICC LINE DUE TO RESISTANCE WHILE INSERTING CATHETER ON BILATERAL UPPER ARM , MIDLINE PLACED @ MONICO
[2016-12-19 11:46] LABS: CARBON DIOXIDE 33 mmol/L (21-32); CHLORIDE 95 mmol/L (98-107); CREATININE 3.8 mg/dL (0.6-1.3); GLUCOSE 77 mg/dL (74-106); MAGNESIUM 2.2 mg/dL (1.8-2.4); POTASSIUM 4.9 mmol/L (3.5-5.1); SODIUM SERUM 134 mmol/L (136-145); UREA NITROGEN, BLOOD 28 mg/dL (7-18)
[2016-12-19 11:50] LABS: BASOPHILS # (AUTO) 0.1 /CMM (0.0-0.2); BASOPHILS % (AUTO) 1.5 % (0.0-2.0); EOSINOPHILS % (AUTO) 0.7 % (0.0-6.0); HEMATOCRIT 36 % (39-51); HEMOGLOBIN 10.6 g/dL (13.5-17.5); LYMPHOCYTES # (AUTO) 0.3 /CMM (0.8-4.8); LYMPHOCYTES % (AUTO) 5.8 % (20.0-44.0); MEAN CORPUSCULAR HEMOGLOBIN 27 PG (26.0-33.0); MEAN CORPUSCULAR HGB CONC 30 g/dl (31.0-36.0); MEAN CORPUSCULAR VOLUME 90 fL (80-96); MONOCYTES # (AUTO) 0.7 /CMM (0.1-1.30); MONOCYTES % (AUTO) 12.1 % (2.0-12.0); NEUTROPHILS # (AUTO) 4.4 /CMM (1.8-8.9); NEUTROPHILS % (AUTO) 79.9 % (43.0-81.0); PLATELET COUNT (AUTO) 122 /CMM (150-450); RDW COEFFICIENT OF VARIATION 19.5 (11.5-15.0); WHITE BLOOD COUNT (AUTO) 5.5 K/uL (4.3-11.0)
[2016-12-19 11:52] LABS: INR 1.24 (0.87-1.13); PROTHROMBIN TIME 13.4 SECS (9.5-12.7)
[2016-12-19 12:22] LABS: ABG BASE EXCESS 4.7 mmol/L; ABG OXYGEN SATURATION 94.7 % (92.0-98.5); ABG PCO2 93.9 mmHg (35.0-45.0); ABG PH 7.195 (7.350-7.450); ABG PO2 83.4 mmHg (75.0-100.0); AaDO2 167.5 mmHg; COHb 2.1 % (0.5-1.5); MetHb 0.6 % (0.0-1.5); O2Hb 92.1 % (94.0-97.0); SITE, ABG Right Brachial; VENT MODE, BG IPAP 18/ EPAP 5
--- NOTE | 2016-12-19 12:30 | NUR ---
DESK REPORTER NOTES NOTIFIED DR HUSSEIN REGARDING ABG OF THE PT ON BIPAP SETTINGS ORDERED , AWAITING FOR CALL BACK .
--- NOTE | 2016-12-19 12:39 | NUR ---
CARD CUTTER HELPER NOTES NOTIFIED DR MARR REGARDING CHEST XRY RESULT , AWARE
[2016-12-19] MEDS: NOREPINEPHRINE 16 MG in IV D5W 500 ML IV PRN (14:01)
--- NOTE | 2016-12-19 15:30 | NUR ---
CNC SET UP OPERATOR NOTES RECEIVED A CALL FROM DR HUSSEIN , ORDERED TO INTUBATE THE PT , CALLED RT AND ER FOR STAT INTUBATION , ORDERS CARRIED OUT
--- NOTE | 2016-12-19 16:00 | NUR ---
BUFFERER NOTES PT WAS EVALUATED AND REQUIRED INTUBATION DUE TO PCO2 93.9 , PH 7.195 SEDATIVE AGENT USED ETOMIDATE PARALYSIS AGENT SUCC ER MD AT BEDSIDE , INSERTED 7.5/25 ETT TUBE , BALLOON WAS INFLATED, BILATERAL BREATH SOUNDS WERE HEARD UPON AUSCULTATION , CO2 MONITOR WAS USED TO CONFIRM TRACHEAL PLACEMENT ETT ,ORAL GASTRIC TUBE PLACED CHECK PLACEMENT VIA AUSCULTATION NOTED WITH GURGLING SOUND AROUND STOMACH PATIENT TOLERATED THE PROCEDURE WE;; AND THERE WERE NO COMPLICATION CHEST XRAY WAS ORDERED TO VERIFY PLACEMENT , VENT SETTINGS ORDERED , WILL CONTINUE TO MONITOR
[2016-12-19] MEDS: PROPOFOL 100 ML IV PRN (16:30)
--- NOTE | 2016-12-19 16:33 | NUR ---
PT. INTUBATED BY MIKE HUI DUE TO PCO2 94, PH 7.19. 7.5 ET TUBE SECURED @ 25 CM LIPLINE. BREATH SOUNDS CLEAR BILATERAL WITH CO2 DETECTOR CHANGED IN GOLD COLOR. VENT SETTINGS BELLOW ORDER: AC 20 VT 500 FIO2 100% NO PEEP VENT PLUGGED IN RED OUTLET WITH ALARMS ON AND FUNCTIONING. JMUBAG @ HOB. Addendum: 12/19/16 at 1640 by ADILENE FIGUEROA RT Amended: Links added.
--- NOTE | 2016-12-19 18:00 | NUR ---
PHOTOGRAPH TINTER NOTES NOTIFIED DR HUSSEIN REGARDING ABG RESULT POST INTUBATION , AWAITING FOR CALL BACK FOR VENT CHANGES .
[2016-12-19 18:08] LABS: ABG BASE EXCESS 4.3 mmol/L; ABG PCO2 33.8 mmHg (35.0-45.0); ABG PH 7.521 (7.350-7.450); ABG PO2 170.2 mmHg (75.0-100.0); COHb 1.5 % (0.5-1.5); MetHb 0.7 % (0.0-1.5); O2Hb 96.8 % (94.0-97.0); PEEP,BG 0 cm H2O; SITE, ABG Right Brachial; VT, ABG 500 mL
--- NOTE | 2016-12-19 18:45 | NUR ---
SUBSTANCE ADDICTION COORDINATOR NOTES RECEIVED TELEPHONE ORDER FROM DR HUSSEIN FOR VENT CHANGES . ORDERS CARRIED OUT
[2016-12-19] MEDS ORDERED: ROCURONIUM BROMIDE 50 MG/5 ML ONE (19:30)
[2016-12-19] MEDS ORDERED: ETOMIDATE 2 MG/ML VIAL ONE (19:30)
[2016-12-19] MEDS: MEROPENEM 500 MG in IV NS 0.9% 50 ML IV SCH (20:24)
[2016-12-19] MEDS: oxyCODONE/APAP (5/325 MG) 1 UDTAB TABLET PO PRN (20:25)
[2016-12-19] MEDS: PREGABALIN 25 MG CAPSULE PO SCH (21:13)
[2016-12-19] MEDS: OLANZAPINE 2.5 MG TABLET PO SCH (21:13)
--- NOTE | 2016-12-19 21:47 | NUR ---
RN:ICU: PT RECEIVED IN BED NEWLY INTUBATED THIS AFTERNOON FOR PERSISTENT RESPIRATORY DISTRESS AND ABNORMAL ABG RESULTS. CHEST XRAY AND S/P INTUBATION ABG PERFORMED, WITH RESULTS REPORTED TO PULMONARY MD. PT TOLERATING CURRENT VENTS SETTING. PT RESTLESS IN BED BUT IS ABLE TO ANSWER YES AND NO QUESTIONS. PT INSTRUCTED TO AVOID REACHING FOR ETT. RELEASE OF RESTRAINT PERFORMED FOLLOWING EDUCATION. PT REACHED FOR ETT DESPITE REORIENTATION AND CONTINUES TO REQUIRE BILATERAL SOFT WRIST RESTRAINTS. RESTARTED LEVO PER MD ORDERS BP DROPPED TO 60'S ONCE DIPRIVAN INCREASED FOR COMFORT. PT MEDICATED FOR PAIN HE NODDED HEAD WHEN PAIN ASSESSMENT PERFORMED. PT HAS LEFT ABD PACEMAKER, WHICH IS NOT SENSING OR SPIKING. PT HR SR 60'S. ASPIRATION/ FALL PRECAUTIONS IN PLACE. WILL CONTINUE TO MONITOR CLOSELY. ID SEEN PATIENT, SEE EMAR FOR NEW ANTIBX.
[2016-12-20] VITALS (106 sets, daily range): BP systolic 85–141; BP diastolic 38–69
[2016-12-20] MEDS: SULFACETAMIDE 10% OPHTH 15 ML BOTTLE EACHEYE SCH ×6 (01:27→20:23)
[2016-12-20] MEDS: IV NS 0.9% 250 ML IV PRN (02:46)
[2016-12-20] MEDS: PROPOFOL 100 ML IV PRN ×3 (02:47→20:22)
[2016-12-20 04:43] LABS: BASOPHILS % (AUTO) 0.1 % (0.0-2.0); EOSINOPHILS # (AUTO) 0.2 /CMM (0.0-0.7); EOSINOPHILS % (AUTO) 3.6 % (0.0-6.0); HEMATOCRIT 33 % (39-51); HEMOGLOBIN 10.2 g/dL (13.5-17.5); LYMPHOCYTES # (AUTO) 0.4 /CMM (0.8-4.8); LYMPHOCYTES % (AUTO) 8.1 % (20.0-44.0); MEAN CORPUSCULAR HEMOGLOBIN 27 PG (26.0-33.0); MEAN CORPUSCULAR HGB CONC 31 g/dl (31.0-36.0); MEAN CORPUSCULAR VOLUME 86 fL (80-96); MONOCYTES # (AUTO) 0.7 /CMM (0.1-1.30); MONOCYTES % (AUTO) 12.2 % (2.0-12.0); NEUTROPHILS # (AUTO) 4.1 /CMM (1.8-8.9); PLATELET COUNT (AUTO) 113 /CMM (150-450); RDW COEFFICIENT OF VARIATION 20.5 (11.5-15.0); RED BLOOD CELL COUNT(AUTO) 3.79 MIL/uL (4.5-6.0); WHITE BLOOD COUNT (AUTO) 5.4 K/uL (4.3-11.0)
[2016-12-20 05:19] LABS: CALCIUM, SERUM 8.2 mg/dL (8.5-10.1); CARBON DIOXIDE 28 mmol/L (21-32); CHLORIDE 96 mmol/L (98-107); CREATININE 4.4 mg/dL (0.6-1.3); GLUCOSE 78 mg/dL (74-106); MAGNESIUM 2.3 mg/dL (1.8-2.4); POTASSIUM 4.2 mmol/L (3.5-5.1); SODIUM SERUM 135 mmol/L (136-145); UREA NITROGEN, BLOOD 36 mg/dL (7-18)
--- NOTE | 2016-12-20 06:18 | NUR ---
RN:ICU: DR GREEN AT THE BEDSIDE ASSESSING PT. AWARE OF AM LABS.
--- NOTE | 2016-12-20 06:41 | NUR ---
RN:ICU: HD IN PROCESS AT BEDSIDE. LEVOPHED INCREASED TO 15MCG/MIN FOR ANTICIPATED DROP IN BP. UNABLE TO DOCUMENT MCG/MIN ON IV FLOW SHEET, ONLY ABLE TO DOCUMENT ML/HR. WILL D/W PHARMACY.
--- NOTE | 2016-12-20 07:36 | NUR ---
IMPORT/EXPORT SPECIALIST RECEIVED PATIENT SEDATED ON DIPRIVAN AT 20 MCS AT LEVOPHED AT 16 MCGS AFEBRILE BLOOD PRESSURE MONITORED CLOSELY PATIENT IS ON ONGOING HD PATIENT HAS A PACEMAKER BUT NOT SHOWING ON THE MONITOR ON SN WITH FIRST DEGREE AV BLOCK NOTED VANCOMYCIN TO BE GIVEN ONCE DIALYSIS IS DONE
[2016-12-20] MEDS: MEROPENEM 500 MG in IV NS 0.9% 50 ML IV SCH ×2 (07:56→18:46)
[2016-12-20] MEDS: PROSOURCE / PROSTAT (PYXIS) 30 ML UDC GT SCH (08:33)
[2016-12-20] MEDS: CINACALCET HCL 30 MG TABLET PO SCH (08:33)
[2016-12-20] MEDS: SEVELAMER CARBONATE 800 MG TABLET PO SCH ×3 (08:34→16:51)
[2016-12-20] MEDS: ASPIRIN 81 MG TAB.CHEW PO SCH (08:34)
[2016-12-20] MEDS: MUPIROCIN OINT 2% 22 GM TUBE TP SCH ×2 (08:35→20:34)
[2016-12-20] MEDS: VIT B CMPLX 3/FA/VIT C/BIOTIN 1 TAB TABLET PO SCH (08:39)
[2016-12-20 09:48] LABS: ABG BASE EXCESS 6.7 mmol/L; ABG OXYGEN SATURATION 94.6 % (92.0-98.5); ABG PCO2 34.7 mmHg (35.0-45.0); ABG PH 7.544 (7.350-7.450); ABG PO2 66.5 mmHg (75.0-100.0); AaDO2 178.8 mmHg; COHb 1.6 % (0.5-1.5); MetHb 0.9 % (0.0-1.5); O2Hb 92.2 % (94.0-97.0); PEEP,BG 5 cm H2O; SITE, ABG Right Brachial; VT, ABG 450 mL
--- NOTE | 2016-12-20 12:33 | NUR ---
COUNSELOR AID EARLIER EXAMINED THE PATIENT SHOWED MD PATIENT'S RED, BLOOD SHOT EYE
[2016-12-20] MEDS: LEVOFLOXACIN (250MG) 250 MG TABLET PO SCH (14:04)
[2016-12-20] MEDS: NOREPINEPHRINE 16 MG in IV D5W 500 ML IV PRN (14:04)
[2016-12-20] MEDS: VANCOMYCIN 500 MG in IV D5W 100 ML IV PRN (16:51)
--- NOTE | 2016-12-20 17:17 | NUR ---
NITRO WORKER PATIENT WOKE UP OPEN EYES AND FOLLOWS COMMAND HIS COHERENT AND ANSWERS QUESTION BY NODDING HEAD HE WANTED TO SLEEP AND BE MORE COMFORTABLE, DIPRIVAN INCREASED TO 30 MCGS
[2016-12-20] MEDS: OLANZAPINE 2.5 MG TABLET PO SCH (21:12)
[2016-12-20] MEDS: PREGABALIN 25 MG CAPSULE PO SCH (21:12)
--- NOTE | 2016-12-20 21:19 | NUR ---
FIRST MATE NOTES RECEIVED PT IN BED, SEDATED, DIPRIVAN AT 30 MCG/KG/MIN. ON VENT VIA 7.5 ETT, 25CM AT LIPS, AC 14, TV 500, FIO2 45%, PEEP 5, JEANNETTE WELL. TELE READS AFIB IN 60s, WITH OCCASIONAL JUNCTIONAL BEATS AND PVC, HX OF 1st DEGREE BLOCK. LCW PACEMAKER NOT FUNCTIONING PROPERLY. OGT IN PLACE, CLAMPED, NPO EXCEPT MEDS, NO RESIDUAL. ANURIC, HD EARLIER TODAY WITH 1.5 L OUTPUT. MONICO TLC MIDLINE, RUNNING DIPRIVAN, LEVOPHED AT 8MCG/MIN AND NS AT TKO. ON RESTRAINTS, BILATERAL SWR. TURNED AND REPOSITIONED, HOB ELEVATED, SIDE RAILS X3. Addendum: 12/21/16 at 0631 by ANDREW AGUILAR RN PACEMAKER LOCATED AT LEFT UPPER ABDOMEN.
[2016-12-21] VITALS (108 sets, daily range): BP systolic 68–137; BP diastolic 37–73
[2016-12-21] MEDS: PROPOFOL 100 ML IV PRN ×3 (01:57→15:56)
[2016-12-21 04:50] LABS: BASOPHILS # (AUTO) 0.1 /CMM (0.0-0.2); EOSINOPHILS # (AUTO) 0.2 /CMM (0.0-0.7); HEMATOCRIT 35 % (39-51); HEMOGLOBIN 10.9 g/dL (13.5-17.5); LYMPHOCYTES # (AUTO) 0.4 /CMM (0.8-4.8); LYMPHOCYTES % (AUTO) 7.2 % (20.0-44.0); MEAN CORPUSCULAR HEMOGLOBIN 27 PG (26.0-33.0); MEAN CORPUSCULAR HGB CONC 32 g/dl (31.0-36.0); MEAN CORPUSCULAR VOLUME 86 fL (80-96); MONOCYTES # (AUTO) 0.7 /CMM (0.1-1.30); MONOCYTES % (AUTO) 11.6 % (2.0-12.0); NEUTROPHILS # (AUTO) 4.6 /CMM (1.8-8.9); NEUTROPHILS % (AUTO) 76.2 % (43.0-81.0); PLATELET COUNT (AUTO) 112 /CMM (150-450); RDW COEFFICIENT OF VARIATION 20.1 (11.5-15.0); RED BLOOD CELL COUNT(AUTO) 4.04 MIL/uL (4.5-6.0); WHITE BLOOD COUNT (AUTO) 6.1 K/uL (4.3-11.0)
[2016-12-21] MEDS: SULFACETAMIDE 10% OPHTH 15 ML BOTTLE EACHEYE SCH ×6 (05:07→21:12)
[2016-12-21 05:08] LABS: ALBUMIN 2.2 g/dL (3.4-5.0); ALKALINE PHOSPHATASE 61 U/L (46-116); ASPARTATE AMINOTRANSFERASE 15 U/L (15-37); CARBON DIOXIDE 28 mmol/L (21-32); CHLORIDE 93 mmol/L (98-107); CREATININE 4.2 mg/dL (0.6-1.3); GLUCOSE 108 mg/dL (74-106); MAGNESIUM 2.1 mg/dL (1.8-2.4); PHOSPHORUS 3.3 mg/dL (2.5-4.9); POTASSIUM 3.6 mmol/L (3.5-5.1); SODIUM SERUM 134 mmol/L (136-145); TOTAL PROTEIN, SERUM 7.3 g/dL (6.4-8.2); UREA NITROGEN, BLOOD 31 mg/dL (7-18)
[2016-12-21 05:20] LABS: ALANINE AMINOTRANSFERASE 7 U/L (12-78)
[2016-12-21] MEDS: IV NS 0.9% 250 ML IV PRN (06:00)
--- NOTE | 2016-12-21 07:15 | NUR ---
AERODYNAMICS ENGINEER RECEIVED PATIENT SEDATED ON 30 MCGS OF DIPRIVAN MAINTAINED LEVOPHED AT 6 MCGS AFEBRILE NSR WITH 1ST DEGREE AV BLOCK WITH JUNCTIONAL AT TIMES BLOOD PRESSURE MONITORED CLOSELY MAINTAINED ON NPO FOR THE MEANTIME ANURIC
[2016-12-21] MEDS: MEROPENEM 500 MG in IV NS 0.9% 50 ML IV SCH ×2 (07:21→18:47)
[2016-12-21] MEDS: SEVELAMER CARBONATE 800 MG TABLET PO SCH ×3 (07:21→17:14)
[2016-12-21 07:44] LABS: ABG BASE EXCESS 1.9 mmol/L; ABG OXYGEN SATURATION 97.4 % (92.0-98.5); ABG PCO2 34.7 mmHg (35.0-45.0); ABG PH 7.478 (7.350-7.450); AaDO2 174.4 mmHg; COHb 1.2 % (0.5-1.5); MetHb 0.8 % (0.0-1.5); O2Hb 95.5 % (94.0-97.0); PEEP,BG 5 cm H2O; SITE, ABG Right Brachial; VENT MODE, BG A/C; VT, ABG 450 mL
[2016-12-21] MEDS: NOREPINEPHRINE 16 MG in IV D5W 500 ML IV PRN ×2 (08:05→11:58)
[2016-12-21] MEDS: VIT B CMPLX 3/FA/VIT C/BIOTIN 1 TAB TABLET PO SCH (08:14)
[2016-12-21] MEDS: PROSOURCE / PROSTAT (PYXIS) 30 ML UDC GT SCH (08:14)
[2016-12-21] MEDS: ASPIRIN 81 MG TAB.CHEW PO SCH (08:14)
[2016-12-21] MEDS: CINACALCET HCL 30 MG TABLET PO SCH (08:14)
[2016-12-21] MEDS: MUPIROCIN OINT 2% 22 GM TUBE TP SCH ×2 (08:58→21:12)
--- NOTE | 2016-12-21 11:30 | NUR ---
INSPECTOR ASSEMBLIES AND INSTALLATIONS DR. CAVANAUGH SAW AND EXAMINED THE PATIENT ORDERED TO PLACE PATIENT ON CPAP OF 5 CHARGE NURSE STOPPED PROPOFOL TO START CPAP ON THE PATIENT RT ON DUTY CHANGED SETTING FAMILY IS AT THE BEDSIDE DURING THE PROCESS
--- NOTE | 2016-12-21 20:23 | NUR ---
RN:ICU: RECEIVED PT INTUBATED, SEDATED ON DIPRIVAN DRIP AT 25 MCG/KG/MIN, ON LEVOPHED INCREASED TO 6 MCG/MIN TO KEPT SBP >90. CURRENT VENT SETTING TOLERATING WELL, NO DISTRESS. MULTIPLE DECUBES, DRESSING REINFORCED. LEFT UPPER ARM MIDLINE, PER PREVIOUS NURSE CECILE IT WAS PICC LINE THEN IT BECAME MIDLINE. LEFT GROIN HD CATH, DIALYZED TODAY 2 L OUT. ALL NEEDS ATTENDED. KEEP MONITORING,.... FULL ASSESSMENT SEE ON FLOW SHEET..
[2016-12-21] MEDS: OLANZAPINE 2.5 MG TABLET PO SCH (21:04)
[2016-12-21] MEDS: PREGABALIN 25 MG CAPSULE PO SCH (21:11)
[2016-12-22] VITALS (75 sets, daily range): BP systolic 71–152; BP diastolic 39–78
[2016-12-22] MEDS: PROPOFOL 100 ML IV PRN ×3 (00:35→16:31)
[2016-12-22] MEDS: SULFACETAMIDE 10% OPHTH 15 ML BOTTLE EACHEYE SCH ×5 (01:09→16:32)
[2016-12-22] MEDS: IV NS 0.9% 250 ML IV PRN (03:54)
[2016-12-22 04:47] LABS: EOSINOPHILS # (AUTO) 0.2 /CMM (0.0-0.7); EOSINOPHILS % (AUTO) 4.6 % (0.0-6.0); HEMATOCRIT 36 % (39-51); HEMOGLOBIN 11.4 g/dL (13.5-17.5); LYMPHOCYTES # (AUTO) 0.3 /CMM (0.8-4.8); MEAN CORPUSCULAR HEMOGLOBIN 27 PG (26.0-33.0); MEAN CORPUSCULAR HGB CONC 31 g/dl (31.0-36.0); MEAN CORPUSCULAR VOLUME 86 fL (80-96); MONOCYTES # (AUTO) 0.5 /CMM (0.1-1.30); NEUTROPHILS # (AUTO) 4.1 /CMM (1.8-8.9); NEUTROPHILS % (AUTO) 80.4 % (43.0-81.0); PLATELET COUNT (AUTO) 93 /CMM (150-450); RDW COEFFICIENT OF VARIATION 20.4 (11.5-15.0); RED BLOOD CELL COUNT(AUTO) 4.25 MIL/uL (4.5-6.0); WHITE BLOOD COUNT (AUTO) 5.1 K/uL (4.3-11.0)
[2016-12-22 05:13] LABS: CALCIUM, SERUM 7.6 mg/dL (8.5-10.1); CARBON DIOXIDE 29 mmol/L (21-32); CHLORIDE 94 mmol/L (98-107); CREATININE 3.4 mg/dL (0.6-1.3); GLUCOSE 103 mg/dL (74-106); MAGNESIUM 1.9 mg/dL (1.8-2.4); PHOSPHORUS 3.6 mg/dL (2.5-4.9); POTASSIUM 3.9 mmol/L (3.5-5.1); SODIUM SERUM 134 mmol/L (136-145); UREA NITROGEN, BLOOD 23 mg/dL (7-18)
[2016-12-22 05:42] LABS: BAND % (MANUAL) 2 % (0.0-5.0); EOSINOPHILS % (MANUAL) 5 % (0-4); LYMPHOCYTES % (MANUAL) 10 % (16-48); MONOCYTES % (MANUAL) 4 % (0-11.0); NEUTROPHILS % (MANUAL) 79 (42-76)
--- NOTE | 2016-12-22 07:20 | NUR ---
ICU/RN: PT RECEIVED ON VENT, INTUBATED ETT 7.5 @ 25CM LIP LINE, TOLERATING CURRENT VENT SETTINGS. BREATHING EVEN AND UNLABORED. DRESSING C/D/I, NO FACIAL GRIMACING NOTED. MONICO MIDLINE PATENT AND INTACT, LEVOPHED INFUSING WELL TO SET RATE. L GROIN HD CATH DRESSING C/D/I. OGT AUSCULTATED FOR PLACEMENT, +. 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 DIPRIVAN TURNED OFF FOR SEDATION VACATION. WILL CONT TO MONITOR PT.
--- NOTE | 2016-12-22 08:02 | NUR ---
Received intubated pt. Pt 7.5 ETT secured at 25cm@ the lip. Vent is plugged into a red outlet, alarms are set and audible, and BVM is at bedside. Addendum: 12/22/16 at 0803 by AUSTYN GARCIA RT Amended: Links added.
[2016-12-22] MEDS: SEVELAMER CARBONATE 800 MG TABLET PO SCH ×2 (08:04→12:16)
[2016-12-22] MEDS: PROSOURCE / PROSTAT (PYXIS) 30 ML UDC GT SCH (08:04)
[2016-12-22] MEDS: ASPIRIN 81 MG TAB.CHEW PO SCH (08:04)
[2016-12-22] MEDS: VIT B CMPLX 3/FA/VIT C/BIOTIN 1 TAB TABLET PO SCH (08:04)
[2016-12-22] MEDS: CINACALCET HCL 30 MG TABLET PO SCH (08:04)
[2016-12-22] MEDS: MEROPENEM 500 MG in IV NS 0.9% 50 ML IV SCH ×2 (08:04→19:40)
--- NOTE | 2016-12-22 08:48 | NUR ---
ICU/RN: PT OFF SEDATION: A&OX2, TAGALOG SPEAKING ONLY. RESPONDS TO NAME, ABLE TO FOLLOW SOME COMMANDS, EQUAL BILAT UPPER AND LOWER EXTREMITY STRENGTH. PT IS AGITATED, ATTEMPTING TO KICK SHEETS AND PILLOWS OFF THE BED, PULL OUT TUBES. ATTEMPTS TO STRIKE STAFF. SOFT WRIST RESTRAINTS RE-APPLIED, PER PROTOCOL. DE-ESCALATING TECHNIQUES INEFFECTIVE. RESTARTED ON DIPRIVAN FOR COMFORT AND SEDATION. WILL RENDER RESTRAINT CARE ACCORDINGLY.
[2016-12-22] MEDS: MUPIROCIN OINT 2% 22 GM TUBE TP SCH ×2 (08:49→21:08)
[2016-12-22] MEDS: NOREPINEPHRINE 16 MG in IV D5W 500 ML IV PRN (09:21)
--- NOTE | 2016-12-22 09:30 | NUR ---
ICU/RN: SPOKE WITH DR SANTOS REGARDING PT STATUS, ABN LABS, PERIODS OF JUNCTIONAL ESCAPE RHYTHM. NEW ORDERS NOTED AND CARRIED OUT.
[2016-12-22] MEDS: LEVOFLOXACIN (250MG) 250 MG TABLET PO SCH (14:02)
[2016-12-22] MEDS: VANCOMYCIN 500 MG in IV D5W 100 ML IV PRN (14:02)
--- NOTE | 2016-12-22 14:45 | NUR ---
ICU/RN: HD COMPLETE; 1600 ML OUT. DRESSING CHANGED. NO ACTIVE BLEEDING NOTED. REMAINS ON LEVOPHED 10MCG/MIN TO MAINTAIN SBP >90MM/HG.
--- NOTE | 2016-12-22 15:00 | NUR ---
ICU/RN: BED BATH AND HYGIENIC CARE RENDERED; PT BP LABILE WITH TURNING AND REPOSITIONING.
[2016-12-22] MEDS: SEVELAMER CARBONATE 0.8 GM POWD.PACK PO SCH (17:31)
--- NOTE | 2016-12-22 19:16 | NUR ---
ICU/RN: PT INTUBATED, IN BED, EYES CLOSED, NO DISTRESS NOTED. CARE ENDORSED TO PM RN FOR WAYNE.
--- NOTE | 2016-12-22 19:52 | NUR ---
PT RECEIVED INTUBATED WITH 7.5 ETT SECURED AT 25CM AT THE LIP VIA ANCHOR FAST. PT TOLERATING VENT SETTINGS. SX'D FOR SML AMT OF THIN WHITE SECRETIONS. VENT ALARMS SET AND AUDIBLE. VENT PLUGGED INTO RED OUTLET. WILL CONTINUE TO MONITOR. Addendum: 12/22/16 at 1953 by ANMOL MAYO RT Amended: Links added.
--- NOTE | 2016-12-22 20:43 | NUR ---
received pt from day shift, sedated on diprivan at 30mcg, junctional, 2 degree av block type 2, pacer, receiving levo at 10mcg, intubated, on the vent, lungs congested, no edema, OG clamped, anuric, HD pt, wounds noted, dressings on, v/s stable, no pain, pt turned and repositioned.
[2016-12-22] MEDS: PREGABALIN 25 MG CAPSULE PO SCH (21:06)
[2016-12-22] MEDS: OLANZAPINE 2.5 MG TABLET PO SCH (21:06)
[2016-12-22] MEDS: HEPARIN SODIUM, PORCINE 5000 UNITS/1 ML VIAL SQ SCH (21:08)
[2016-12-23] VITALS (105 sets, daily range): BP systolic 64–149; BP diastolic 38–84
[2016-12-23] MEDS: PROPOFOL 100 ML IV PRN ×4 (00:19→21:32)
--- NOTE | 2016-12-23 00:21 | NUR ---
pt is resting in the bed, sedated on Diprivan at 30mcg, receiving levo at 10mcg, v/s stable, no pain, pt turned and repositioned q2hrs.
--- NOTE | 2016-12-23 04:37 | NUR ---
pt is resting in the bed, no acute distress overnight, sedated on Diprivan at 30mcg, receiving levo at 10mcg, v/s stable, no pain, pt cleaned, changed and repositioned q2hrs.
[2016-12-23 04:49] LABS: BASOPHILS % (AUTO) 0.4 % (0.0-2.0); EOSINOPHILS # (AUTO) 0.5 /CMM (0.0-0.7); EOSINOPHILS % (AUTO) 8.9 % (0.0-6.0); HEMATOCRIT 39 % (39-51); HEMOGLOBIN 12.4 g/dL (13.5-17.5); LYMPHOCYTES # (AUTO) 0.5 /CMM (0.8-4.8); LYMPHOCYTES % (AUTO) 8.5 % (20.0-44.0); MEAN CORPUSCULAR HEMOGLOBIN 27 PG (26.0-33.0); MEAN CORPUSCULAR HGB CONC 32 g/dl (31.0-36.0); MEAN CORPUSCULAR VOLUME 85 fL (80-96); MONOCYTES # (AUTO) 0.9 /CMM (0.1-1.30); MONOCYTES % (AUTO) 16.3 % (2.0-12.0); NEUTROPHILS # (AUTO) 3.6 /CMM (1.8-8.9); NEUTROPHILS % (AUTO) 65.9 % (43.0-81.0); PLATELET COUNT (AUTO) 98 /CMM (150-450); RDW COEFFICIENT OF VARIATION 20.2 (11.5-15.0); RED BLOOD CELL COUNT(AUTO) 4.58 MIL/uL (4.5-6.0); WHITE BLOOD COUNT (AUTO) 5.4 K/uL (4.3-11.0)
[2016-12-23 05:11] LABS: CALCIUM, SERUM 7.6 mg/dL (8.5-10.1); CARBON DIOXIDE 28 mmol/L (21-32); CHLORIDE 92 mmol/L (98-107); CREATININE 3.5 mg/dL (0.6-1.3); GLUCOSE 130 mg/dL (74-106); MAGNESIUM 1.9 mg/dL (1.8-2.4); PHOSPHORUS 3.2 mg/dL (2.5-4.9); POTASSIUM 4.1 mmol/L (3.5-5.1); SODIUM SERUM 131 mmol/L (136-145); UREA NITROGEN, BLOOD 20 mg/dL (7-18)
[2016-12-23 05:12] LABS: EOSINOPHILS % (MANUAL) 8 % (0-4); LYMPHOCYTES % (MANUAL) 11 % (16-48); MONOCYTES % (MANUAL) 12 % (0-11.0); NEUTROPHILS % (MANUAL) 69 (42-76)
--- NOTE | 2016-12-23 07:10 | NUR ---
PT RECEIVED ORALLY INTUBATED ON MECHANICAL VENT W/ SETTINGS PER . VENT IN RED OUTLET, AMBUBAG AT BEDSIDE, VENT ALARMS CHECKED AND AUDIBLE. ETT PATENT AND SECURED W/ ANCHOFAST. BREATH SOUNDS EQUAL DIMINISHED. PT SX'ED AND LAVAGED PRN. WEANING ATTEMPTED ON SIMV 4 PS12 +5 PER . PT OFF SEDATION, AWAKE, FOLLOWS COMMANDS, BUT UNABLE TO PRODUCE ADEQUATE RETURN VOLUMES. Addendum: 12/23/16 at 1437 by SRIDHAR COLINDRES RT Amended: Links added.
[2016-12-23] MEDS: NOREPINEPHRINE 16 MG in IV D5W 500 ML IV PRN ×3 (07:57→10:32)
[2016-12-23] MEDS: SEVELAMER CARBONATE 0.8 GM POWD.PACK PO SCH ×3 (07:57→17:41)
[2016-12-23] MEDS: MEROPENEM 500 MG in IV NS 0.9% 50 ML IV SCH ×2 (07:57→20:40)
[2016-12-23] MEDS: CINACALCET HCL 30 MG TABLET PO SCH (08:00)
[2016-12-23] MEDS: ASPIRIN 81 MG TAB.CHEW PO SCH (08:00)
[2016-12-23] MEDS: PROSOURCE / PROSTAT (PYXIS) 30 ML UDC GT SCH (08:00)
[2016-12-23] MEDS: VIT B CMPLX 3/FA/VIT C/BIOTIN 1 TAB TABLET PO SCH (08:00)
[2016-12-23] MEDS: HEPARIN SODIUM, PORCINE 5000 UNITS/1 ML VIAL SQ SCH ×2 (08:01→21:31)
--- NOTE | 2016-12-23 08:10 | NUR ---
MISHA GUTHRIE ON THE UNIT, DISCUSSED CASE WITH HIM ABOUT TF, HE ORDERS TO HOLD OFF TF FOR NOW AND WILL RE-EVAL TOMORROW AM.
--- NOTE | 2016-12-23 08:20 | NUR ---
HD COMPLETE 1 LITER OUT.
[2016-12-23] MEDS: MUPIROCIN OINT 2% 22 GM TUBE TP SCH ×2 (08:54→21:30)
[2016-12-23] MEDS ORDERED: NOREPINEPHRINE 16 MG in IV D5W 500 ML IV PRN (09:30)
--- NOTE | 2016-12-23 11:45 | NUR ---
DIPRIVAN TITRATED FROM 18MCG TO 16MCG, PT TURNED AND POSITIONED SUCTIONED, POSITIVE GAG REFLEX, FACIAL GRIMACING NOTED WILL CONTINUE TO TITRATE DOWN FOR POSSIBLE VENTILATOR WEANING TODAY.
--- NOTE | 2016-12-23 11:54 | NUR ---
VANCO TROUGH 24, CALLED PHARMACY AND VERIFIED THAT WE WILL HOLD VANCO TODAY PRN HD.
[2016-12-23] MEDS: VANCOMYCIN 500 MG in IV D5W 100 ML IV PRN (12:00)
--- NOTE | 2016-12-23 12:00 | NUR ---
TITRATING DIPRIVAN DOWN FOR WEANING TRIAL
--- NOTE | 2016-12-23 14:42 | NUR ---
DIPRIVAN WEANED OFF. PT IS AWAKE AND ACKNOWLEDGES TEACHING ABOUT THE WEANING PROTOCOL BY NODDING HIS HEAD. FOLLOWS COMMANDS TO SQUEEZE HANDS. I COACHED HIM TO BREATHE DEEP AND SLOWLY, HE IS ABLE TO NOD HIS HEAD. 1400 WEANING TRIAL INITATED, PT PLACED ON SIMV WITH BACK UP RESP OF 4 PRESSURE SUPPORT 12 FIO2 45%. FOR ABOUT 20 MINUTES HE INSPIRED VERY LOW VOLUMES DESPITE COACHING TO BREATHE DEEPLY. WOULD ONLY PULL IN ADEQUATE VOLUMES WHEN VERBALLY COACHED. SPO2 DROPPED DOWN TO 88% AND WEANING TRIAL WAS STOPPED.
--- NOTE | 2016-12-23 15:00 | NUR ---
DIPRIVAN RESTARTED AT 5MCG, PT IS REACHING FOR ETT TUBE, FACIAL GRIMACING NOTICED AND RESTLESSNESS.
--- NOTE | 2016-12-23 16:03 | NUR ---
PT FOUND TO BE REACHING FOR ETT TUBE, EXPLAINED TO HIM NOT TO PULL OUT ETT TUBE BECAUSE IT CAN DAMAGE HIS AIRWAY. INCREASED DIPRIVAN TO 10MCG. Addendum: 12/23/16 at 1604 by MELLY POWELL RN Amended: Links added.
--- NOTE | 2016-12-23 19:30 | NUR ---
RN INITIAL NOTES RECEIVED THE PATIENT SEDATED ON BED WITH DIPRIVAN @ 30MCG/KG/MIN. STILL ABLE TO MOVE HIS ARMS BUT SOFT BILATERAL WRIST RESTRAINTS IN PLACE FOR PATIENT PROTECTION/SAFETY. INTUBATED AND ON VENT, AC 14, TV 450, 45% FIO2, PEEP 5, SATURATING WELL, NO S/S OF RESP DISTRESS. CURRENTLY JUNCTIONAL ON THE MONITOR WITH BBB AND INVERTED TWAVE, HR 60'S. OJT IN PLACE AND CLAMPED. PT ANURIC, ON DIAPERS ONLY. LEFT FEMORAL HD CATH INTACT. LEFT ARM MIDLINE WITH LEVO @ 7MCG/MIN, IV ACCESS FLUSHED AND PATENT, NO S/S OF INFILTRATION/INFECTION, DRESSING CDI. BED LOW AND LOCKED, SIDERAILS UP, CALL LIGHT WITHIN REACH. WILL MONITOR
--- NOTE | 2016-12-23 20:18 | NUR ---
PT RECEIVED INTUBATED WITH 7.5 ETT SECURED AT 25CM AT THE LIP VIA ANCHOR FAST. PT TOLERATING VENT SETTINGS. SX'D FOR SML AMT OF THIN WHITE SECRETIONS. VENT ALARMS SET AND AUDIBLE. VENT PLUGGED INTO RED OUTLET. WILL CONTINUE TO MONITOR. Addendum: 12/23/16 at 2019 by ANMOL MAYO RT Amended: Links added.
[2016-12-23] MEDS: OLANZAPINE 2.5 MG TABLET PO SCH (21:29)
[2016-12-23] MEDS: PREGABALIN 25 MG CAPSULE PO SCH (21:29)
[2016-12-24] VITALS (107 sets, daily range): BP systolic 84–140; BP diastolic 46–74
[2016-12-24] MEDS: PROPOFOL 100 ML IV PRN ×3 (03:29→16:10)
[2016-12-24] MEDS: IV NS 0.9% 250 ML IV PRN (03:30)
[2016-12-24 04:53] LABS: BASOPHILS % (AUTO) 0.5 % (0.0-2.0); EOSINOPHILS # (AUTO) 0.6 /CMM (0.0-0.7); EOSINOPHILS % (AUTO) 12.4 % (0.0-6.0); HEMATOCRIT 36 % (39-51); HEMOGLOBIN 11.4 g/dL (13.5-17.5); LYMPHOCYTES # (AUTO) 0.5 /CMM (0.8-4.8); LYMPHOCYTES % (AUTO) 10.9 % (20.0-44.0); MEAN CORPUSCULAR HEMOGLOBIN 27 PG (26.0-33.0); MEAN CORPUSCULAR HGB CONC 32 g/dl (31.0-36.0); MEAN CORPUSCULAR VOLUME 86 fL (80-96); MONOCYTES # (AUTO) 0.7 /CMM (0.1-1.30); MONOCYTES % (AUTO) 16.4 % (2.0-12.0); NEUTROPHILS # (AUTO) 2.7 /CMM (1.8-8.9); NEUTROPHILS % (AUTO) 59.8 % (43.0-81.0); PLATELET COUNT (AUTO) 81 /CMM (150-450); RDW COEFFICIENT OF VARIATION 20.6 (11.5-15.0); RED BLOOD CELL COUNT(AUTO) 4.16 MIL/uL (4.5-6.0); WHITE BLOOD COUNT (AUTO) 4.4 K/uL (4.3-11.0)
[2016-12-24 05:28] LABS: ALANINE AMINOTRANSFERASE 7 U/L (12-78); ALKALINE PHOSPHATASE 80 U/L (46-116); ASPARTATE AMINOTRANSFERASE 17 U/L (15-37); BILIRUBIN,DIRECT 0.3 mg/dL (0.0-0.2); BILIRUBIN,TOTAL 0.8 mg/dL (0.2-1.0); CALCIUM, SERUM 7.3 mg/dL (8.5-10.1); CARBON DIOXIDE 29 mmol/L (21-32); CHLORIDE 94 mmol/L (98-107); CREATININE 3.5 mg/dL (0.6-1.3); GLUCOSE 98 mg/dL (74-106); POTASSIUM 4.1 mmol/L (3.5-5.1); SODIUM SERUM 133 mmol/L (136-145); TOTAL PROTEIN, SERUM 7.2 g/dL (6.4-8.2); UREA NITROGEN, BLOOD 24 mg/dL (7-18)
--- NOTE | 2016-12-24 06:50 | NUR ---
RN CLOSING NOTES PT REMAINS STABLE OF THE MOMENT. ALL DUE MEDS GIVEN, AM CARE PROVIDED. LEVO DRIP CURRENTLY @ 5MCG/MIN. WILL ENDORSE CONTINUITY OF CARE TO AM RN
[2016-12-24] MEDS ORDERED: PANTOPRAZOLE 40 MG VIAL IV SCH (07:30)
--- NOTE | 2016-12-24 07:40 | NUR ---
RT PATIENT REC'D ORALLY INTUBATED W/ A 7.5 ETT SECURED VIA ANCHOR FAST AT 25CM MID LIP. ON [facility] VENT WITH NOTED SETTINGS JEANNETTE WELL. VENT PLUGGED INTO RED OUTLET. ALARMS CHECKED + AUDIBLE. BILAT DIM COARSE B/S HEARD. SUCTIONED WITH SMALL AMT PALE SECRETIONS. PATIENT NON RESPONSIVE, APPEARS IN NO DISTRESS AT THIS TIME. AMBU BAG AT HOB Addendum: 12/24/16 at 0844 by CATHERINE CARRERA RT Amended: Links added.
[2016-12-24] MEDS: MEROPENEM 500 MG in IV NS 0.9% 50 ML IV SCH ×2 (08:49→20:34)
[2016-12-24] MEDS: PANTOPRAZOLE 40 MG/PACK PACK GT SCH (08:49)
[2016-12-24] MEDS: SEVELAMER CARBONATE 0.8 GM POWD.PACK PO SCH ×3 (08:49→17:50)
[2016-12-24] MEDS: CINACALCET HCL 30 MG TABLET PO SCH (08:49)
[2016-12-24] MEDS: VIT B CMPLX 3/FA/VIT C/BIOTIN 1 TAB TABLET PO SCH (08:49)
[2016-12-24] MEDS: HYDROCORTISONE SOD SUCCINATE 100 MG/2 ML VIAL IV SCH ×3 (08:50→17:50)
[2016-12-24] MEDS: PROSOURCE / PROSTAT (PYXIS) 30 ML UDC GT SCH (08:50)
[2016-12-24] MEDS: HEPARIN SODIUM, PORCINE 5000 UNITS/1 ML VIAL SQ SCH ×2 (08:53→21:24)
[2016-12-24] MEDS: MUPIROCIN OINT 2% 22 GM TUBE TP SCH ×2 (08:54→21:23)
[2016-12-24] MEDS: ASPIRIN 81 MG TAB.CHEW PO SCH (09:00)
[2016-12-24 10:58] LABS: BAND % (MANUAL) 1 % (0.0-5.0); EOSINOPHILS % (MANUAL) 8 % (0-4); LYMPHOCYTES % (MANUAL) 12 % (16-48); MONOCYTES % (MANUAL) 14 % (0-11.0); NEUTROPHILS % (MANUAL) 65 (42-76)
--- NOTE | 2016-12-24 16:00 | NUR ---
TEMP 96.8 WARMING BLANKET INITIATED. BED BATH SKIN CARE. GTF STARTED AT 20M ML/HR.
[2016-12-24] MEDS: LEVOFLOXACIN (250MG) 250 MG TABLET PO SCH (16:10)
[2016-12-24] MEDS: NOREPINEPHRINE 16 MG in IV D5W 500 ML IV PRN (19:00)
--- NOTE | 2016-12-24 20:47 | NUR ---
received pt from day shift, sedated an Diprivan at 30mcg, Junctional, BBB, 2 degree HB type2, pacer,receiving levo at 5mcg, on the vent, lungs congested, scrotal edema, OG to feeding tolerates well, anuric HD pt, wounds noted, dressing intact, v/s stable, no pain, pt turned and repositioned.
[2016-12-24] MEDS: PREGABALIN 25 MG CAPSULE PO SCH (21:21)
[2016-12-24] MEDS: OLANZAPINE 2.5 MG TABLET PO SCH (21:21)
[2016-12-25] VITALS (109 sets, daily range): BP systolic 82–153; BP diastolic 48–87
--- NOTE | 2016-12-25 01:10 | NUR ---
pt is resting in the bed, sedated on Diprivan at 30mcg, receiving levo at 4mcg, v/s stable, no pain, tolerates feeding, pt turned and repositioned q2hrs.
--- NOTE | 2016-12-25 04:19 | NUR ---
pt is resting in the bed, sedated on Diprivan at 30mcg, receiving levo at 5mcg, tolerates feeding, v/s stable, no pain, pt turned and repositioned q2hrs.
[2016-12-25 05:13] LABS: BASOPHILS % (AUTO) 0.1 % (0.0-2.0); EOSINOPHILS % (AUTO) 0.6 % (0.0-6.0); HEMATOCRIT 39 % (39-51); HEMOGLOBIN 12.4 g/dL (13.5-17.5); LYMPHOCYTES # (AUTO) 0.3 /CMM (0.8-4.8); LYMPHOCYTES % (AUTO) 11.8 % (20.0-44.0); MEAN CORPUSCULAR HEMOGLOBIN 27 PG (26.0-33.0); MEAN CORPUSCULAR HGB CONC 32 g/dl (31.0-36.0); MEAN CORPUSCULAR VOLUME 85 fL (80-96); MONOCYTES # (AUTO) 0.1 /CMM (0.1-1.30); MONOCYTES % (AUTO) 3.2 % (2.0-12.0); NEUTROPHILS # (AUTO) 2.5 /CMM (1.8-8.9); NEUTROPHILS % (AUTO) 84.3 % (43.0-81.0); PLATELET COUNT (AUTO) 106 /CMM (150-450); RED BLOOD CELL COUNT(AUTO) 4.57 MIL/uL (4.5-6.0); WHITE BLOOD COUNT (AUTO) 2.9 K/uL (4.3-11.0)
[2016-12-25 05:25] LABS: CALCIUM, SERUM 7.1 mg/dL (8.5-10.1); CARBON DIOXIDE 29 mmol/L (21-32); CHLORIDE 90 mmol/L (98-107); CREATININE 4.2 mg/dL (0.6-1.3); GLUCOSE 169 mg/dL (74-106); POTASSIUM 5.2 mmol/L (3.5-5.1); SODIUM SERUM 129 mmol/L (136-145); UREA NITROGEN, BLOOD 34 mg/dL (7-18)
[2016-12-25] MEDS: PROPOFOL 100 ML IV PRN ×3 (06:07→22:01)
[2016-12-25 06:17] LABS: BAND % (MANUAL) 1 % (0.0-5.0); EOSINOPHILS % (MANUAL) 1 % (0-4); LYMPHOCYTES % (MANUAL) 13 % (16-48); MONOCYTES % (MANUAL) 3 % (0-11.0); NEUTROPHILS % (MANUAL) 82 (42-76)
--- NOTE | 2016-12-25 07:18 | NUR ---
Intubated pt received on mechanical vent. Pt 7.5 ETT secured at 25cm @ the lip. Vent is plugged into a red outlet, alarms are set and and audible, and BVM is at bedside. Addendum: 12/25/16 at 0720 by AUSTYN GARCIA RT Amended: Links added.
--- NOTE | 2016-12-25 07:32 | NUR ---
INITIAL TEA LEAF READER NOTE RCVD PT SEDATED ON DIPRIVAN, ETT 7.5 25 AT UPPER LIP. TOLERATING ORDERED VETN SETTINGS WELL. JUNCTIONAL RHYTHM ON TELE. OG-TUBE PLACEMENT VERIFIED BY AUSCULTATION/ASPIRATION, NO RESIDUAL OBTAINED. TOLERATING TUBE FEEDING RATE WELL. IV SITE C/D/I/PATENT. NO S/O INFILTRATION/PHLEBITIS OBSERVED IVF INFUSING. WILL CONTINUE TO MONITOR PT FOR SAFETY AND COMFORT. CALL LIGHT WITHIN REACH. BED IN LOW AND LOCKED POSITION.
[2016-12-25] MEDS: ASPIRIN 81 MG TAB.CHEW PO SCH (08:01)
[2016-12-25] MEDS: VIT B CMPLX 3/FA/VIT C/BIOTIN 1 TAB TABLET PO SCH (08:01)
[2016-12-25] MEDS: SEVELAMER CARBONATE 0.8 GM POWD.PACK PO SCH ×3 (08:01→17:18)
[2016-12-25] MEDS: CINACALCET HCL 30 MG TABLET PO SCH (08:01)
[2016-12-25] MEDS: MEROPENEM 500 MG in IV NS 0.9% 50 ML IV SCH ×2 (08:01→19:37)
[2016-12-25] MEDS: PANTOPRAZOLE 40 MG/PACK PACK GT SCH (08:01)
[2016-12-25] MEDS: PROSOURCE / PROSTAT (PYXIS) 30 ML UDC GT SCH (08:02)
[2016-12-25] MEDS: HYDROCORTISONE SOD SUCCINATE 100 MG/2 ML VIAL IV SCH ×3 (08:02→16:00)
[2016-12-25] MEDS: HEPARIN SODIUM, PORCINE 5000 UNITS/1 ML VIAL SQ SCH (08:05)
--- NOTE | 2016-12-25 08:10 | NUR ---
CORPORATE LOGISTICS MANAGER NOTE PT WEANED OFF DIPRIVAN STILL SEDATED, WILL MONITOR MENTAL STATUS.
[2016-12-25] MEDS: MUPIROCIN OINT 2% 22 GM TUBE TP SCH ×2 (08:31→21:21)
--- NOTE | 2016-12-25 09:15 | NUR ---
INSTALLMENT DEALER NOTE PT ALERT, FOLLOWING COMMANDS, PT ORIENTED TO TIME, LOCATION, SITUATION. INFORMED THAT DR. VALLADARES MIGHT ATTEMPT TO WEAN HIM OFF THE VENT TODAY. PT NODS IN UNDERSTANDING. PT APPEARS CALM AND COOPERATIVE. BILATERAL WRIST RESTRAINTS IN PLACE, PT WAS INFORMED THAT THESE ARE USED FOR HIS SAFETY. PT RECEIVING DIALYSIS AT THIS TIME. WILL CONTINUE TO MONITOR.
--- NOTE | 2016-12-25 09:27 | NUR ---
BOAT MOTOR MECHANIC NOTE DR. VALLADARES IN UNIT UPDATED ON PT'S CONDITION, ORDERED WEANING TRIAL FOR TODAY AFTER PT FINISHES DIALYSIS. AILEEN, RT INFORMED. WILL F/U.
--- NOTE | 2016-12-25 09:30 | NUR ---
OFF SEDATION Addendum: 12/25/16 at 1023 by EDWARDO DURANT RN Amended: Links added.
--- NOTE | 2016-12-25 10:21 | NUR ---
USER EXPERIENCE RESEARCHER NOTE PT REMAINS OFF SEDATION, RESTING IN BED, CALM AND COOPERATIVE.
--- NOTE | 2016-12-25 11:43 | NUR ---
GLOVE BOARDER NOTE WEANING TRIAL STARTED, VITAL SIGNS REMAIN STABLE, LOW LUNG VOLUMES, PT COACHED TO TAKE DEEP BREATHS, PT NODS IN ACKNOWLEDGEMENT.
--- NOTE | 2016-12-25 12:16 | NUR ---
CONTINUES TO BE OFF SEDATION, TOLERATING ETT WELL. VITAL SIGNS STABLE. Addendum: 12/25/16 at 1216 by EDWARDO DURANT RN Amended: Links added.
[2016-12-25] MEDS: RENAL NOVASOURCE 1,000 ML BOTTLE GT PRN (12:53)
--- NOTE | 2016-12-25 13:14 | NUR ---
ICE SKATING COACH NOTE ABG DONE STABLE, DR. VALLADARES NOTIFIED, HE RECOMMENDED TO CONTINUE PT ON SIMV MODE. WILL CONTINUE TO MONITOR.
--- NOTE | 2016-12-25 14:19 | NUR ---
MOLDER PUNCH NOTE DR. VALLADARES IN UNIT RECOMMENDED FOR PT TO BE PLACED BACK ON AC MODE. AILEEN, RT NOTIFIED. WILL RESUME SEDATION NEEDED. VITAL SIGNS STABLE. WILL CONTINUE TO MONITOR.
--- NOTE | 2016-12-25 14:32 | NUR ---
PHOTOGRAPHIC PRINTER NOTE SEDATION RE-STARTED, WILL CONTINUE TO MONITOR.
--- NOTE | 2016-12-25 15:33 | NUR ---
TRAILER BODY ASSEMBLER NOTE SEDATION TITRATED UP, PT NOT COMFORTABLE WITH ETT. WILL CONTINUE TO MONITOR.
[2016-12-25] MEDS: ACETAMINOPHEN 325 MG TABLET PO PRN (15:49)
[2016-12-25] MEDS: VANCOMYCIN 500 MG in IV D5W 100 ML IV PRN (17:49)
--- NOTE | 2016-12-25 20:22 | NUR ---
received pt from day shift, sedated on diprivan at 20mcg, junctional, 2 degree HB type 2, Afib, pacer, receiving levo at 3mcg, on the vent, lungs partially congested, some pitting/non pitting edema, OG to feeding tolerates well, anuric HD pt, restraints on, wounds noted, v/s stable, no pain, pt turned and repositioned.
[2016-12-25] MEDS: OLANZAPINE 2.5 MG TABLET PO SCH (21:20)
[2016-12-25] MEDS: PREGABALIN 25 MG CAPSULE PO SCH (21:21)
[2016-12-25] MEDS: NOREPINEPHRINE 16 MG in IV D5W 500 ML IV PRN (22:01)
[2016-12-26] VITALS (102 sets, daily range): BP systolic 81–135; BP diastolic 41–81
--- NOTE | 2016-12-26 00:19 | NUR ---
pt sedated on Diprivan at 20mcg, receiving levo at 3mcg, tolerates feeding, v/s stable, no pain, pt turned and repositioned q2hrs.
[2016-12-26 04:50] LABS: BASOPHILS % (AUTO) 0.1 % (0.0-2.0); EOSINOPHILS % (AUTO) 0.3 % (0.0-6.0); HEMATOCRIT 36 % (39-51); HEMOGLOBIN 11.6 g/dL (13.5-17.5); LYMPHOCYTES # (AUTO) 0.4 /CMM (0.8-4.8); LYMPHOCYTES % (AUTO) 12.2 % (20.0-44.0); MEAN CORPUSCULAR HEMOGLOBIN 27 PG (26.0-33.0); MEAN CORPUSCULAR HGB CONC 32 g/dl (31.0-36.0); MEAN CORPUSCULAR VOLUME 85 fL (80-96); MONOCYTES # (AUTO) 0.3 /CMM (0.1-1.30); MONOCYTES % (AUTO) 7.8 % (2.0-12.0); NEUTROPHILS # (AUTO) 2.7 /CMM (1.8-8.9); NEUTROPHILS % (AUTO) 79.6 % (43.0-81.0); PLATELET COUNT (AUTO) 103 /CMM (150-450); RDW COEFFICIENT OF VARIATION 20.6 (11.5-15.0); RED BLOOD CELL COUNT(AUTO) 4.29 MIL/uL (4.5-6.0); WHITE BLOOD COUNT (AUTO) 3.4 K/uL (4.3-11.0)
--- NOTE | 2016-12-26 05:00 | NUR ---
pt is resting in the bed, no acute distress overnight, sedated on diprivan at 20mcg, receiving levo at 3mcg, tolerates feeding, v/s stable, no pain, pt cleaned, changed and repositioned q2hrs.
[2016-12-26 05:50] LABS: CALCIUM, SERUM 6.8 mg/dL (8.5-10.1); CARBON DIOXIDE 29 mmol/L (21-32); CHLORIDE 91 mmol/L (98-107); CREATININE 3.9 mg/dL (0.6-1.3); GLUCOSE 200 mg/dL (74-106); SODIUM SERUM 129 mmol/L (136-145); UREA NITROGEN, BLOOD 39 mg/dL (7-18)
[2016-12-26] MEDS: PROPOFOL 100 ML IV PRN ×2 (06:16→17:56)
--- NOTE | 2016-12-26 08:00 | NUR ---
ICU/RN INITIAL NOTES,AM RECEIVED REPORT FROM NIGHT NURSE. PT INTUBATED, ETT 7.5 AND 25CM AT THE LIP. ON VENT SETTINGS ORDERED BY MD, NO ACUTE DISTRESS NOTED AT THIS TIME. PT ON TELE, JUNCTIONAL, PACE MAKER ON LEFT CHEST WALL. SEDATED ON 20 MCG OF DIPRIVAN. WILL DO SEDATION VACATION. NOVASOURCE INFUSING AT 20 ML/HR. TOLERATING WELL. PT ANURIC, WILL HAVE H.D. TOMORROW. MIDLINE PATENT AND INTACT, NO S/S OF INFECTION NOTED. ALL NEEDS WILL BE MET, SAFETY MEASURES TAKEN. BILATERAL WRIST RESTRAINTS IN PLACE, WILL BE ASSESSED PER PROTOCOL. WILL CONTINUE CARE
[2016-12-26] MEDS: HYDROCORTISONE SOD SUCCINATE 100 MG/2 ML VIAL IV SCH ×3 (08:21→16:18)
[2016-12-26] MEDS: MEROPENEM 500 MG in IV NS 0.9% 50 ML IV SCH ×2 (08:21→20:00)
[2016-12-26] MEDS: PROSOURCE / PROSTAT (PYXIS) 30 ML UDC GT SCH (08:21)
[2016-12-26] MEDS: PANTOPRAZOLE 40 MG/PACK PACK GT SCH (08:22)
[2016-12-26] MEDS: ASPIRIN 81 MG TAB.CHEW PO SCH (08:22)
[2016-12-26] MEDS: CINACALCET HCL 30 MG TABLET PO SCH (08:22)
[2016-12-26] MEDS: VIT B CMPLX 3/FA/VIT C/BIOTIN 1 TAB TABLET PO SCH (08:22)
[2016-12-26] MEDS: SEVELAMER CARBONATE 0.8 GM POWD.PACK PO SCH ×3 (08:22→17:56)
--- NOTE | 2016-12-26 08:28 | NUR ---
WOUND CARE CONSULT PATIENT SEEN AND PATIENT PRESENTS WITH INTACT BLISTER TO THE TIP OF THE PENIS AND EXCORIATIONS TO THE BASE OF THE PENIS. RECOMMEND CONTINUE WITH APPLICATIONS OF Z GUARD ORDERED. PATIENT BEING FOLLOWED BY PODIATRY/SURGICAL TEAM FOR BILATERAL FOOT ULCERATIONS. UNABLE TO SEE PATIENT SACRAL REGION AT THIS TIME BP LOW. WILL TRY TO SEE PATIENT SACRAL AREA AT LATER TIME WHEN PATIENT CONDITION PERMITS. PATIENT NOTED TO HAVE MULTIPLE CO-MORBIDITIES AT THIS TIME. ALL PRESSURE ULCER PREVENTION MEASURES NOTED TO BE IN PLACE. CURRENT ERICH AT 10. [facility] [place] [facility] FOR SKIN MANAGEMENT Addendum: 12/26/16 at 0834 by MARIELY VANN WNDNU Amended: Links added.
[2016-12-26] MEDS: MUPIROCIN OINT 2% 22 GM TUBE TP SCH ×2 (08:43→21:30)
--- NOTE | 2016-12-26 09:00 | NUR ---
ICU/RN: SEDATION VACATION-KATERINA TURNED OFF FOR SEDATION VACATION, WILL ASSESS
[2016-12-26 09:20] LABS: ABG BASE EXCESS 5.6 mmol/L; ABG OXYGEN SATURATION 97.4 % (92.0-98.5); ABG PCO2 58.6 mmHg (35.0-45.0); ABG PH 7.364 (7.350-7.450); ABG PO2 113.8 mmHg (75.0-100.0); COHb 1.1 % (0.5-1.5); MetHb 0.9 % (0.0-1.5); O2Hb 95.5 % (94.0-97.0); PEEP,BG 5 cm H2O; SITE, ABG Left Radial
--- NOTE | 2016-12-26 14:00 | NUR ---
ICU/RN: RESUMED DIPRIVAN AT 5 MCG PER MD ORDERS SINCE PT AWAKE AND UNCOMFORTABLE AND FIGHTING VENT. WILL CONTINUE TO MONITOR
[2016-12-26] MEDS: LEVOFLOXACIN (250MG) 250 MG TABLET PO SCH (16:12)
[2016-12-26] MEDS: NOREPINEPHRINE 16 MG in IV D5W 500 ML IV PRN (17:54)
[2016-12-26] MEDS: RENAL NOVASOURCE 1,000 ML BOTTLE GT PRN (17:56)
--- NOTE | 2016-12-26 18:47 | NUR ---
ICU/RN ENDING NOTES,AM REPORT WILL BE ENDORSED TO NIGHT NURSE FOR CONTINUATION OF CARE. ALL NEEDS MET. PT INTUBATED, ON VENT SETTINGS, NO DISTRESS NOTED. JUNCTIONAL ON TELE. PT SEDATED OF DIPRIVAN 10 MCG. WHEN OFF ABLE TO FOLLOW SIMPLE COMMANDS. LOW DOSE LEVO FOR BP SUPPORT. ALL NEEDS MET, PT BATHE, LINENS CHANGED, TURNED AND REPOSITIONED. WILL ENDORSE REPORT FOR CONTINUATION OF CARE
--- NOTE | 2016-12-26 19:51 | NUR ---
PATIENT RCVD ORALLY INTUBATED W/ A 7.5 ETT SECURED VIA ANCHOR FAST AT 25CM @ THE [facility] WITH NOTED SETTINGS. VENT PLUGGED INTO RED OUTLET. AMBU BAG AT BEDSIDE . ALARMS CHECKED AND AUDIBLE. BILATERAL BS NOTED. SUCTIONED SMALL AMOUNT OF WHITE THIN SECRETIONS. NO RESPIRATORY DISTRESS AT THIS TIME. WILL CONTINUE TO MONITOR THE PT.
--- NOTE | 2016-12-26 20:00 | NUR ---
Received patient sedated intubated to vent on ac mode.See settings on ICU Flow sheet.Secretion suction and oral care done.Junctional/Afib 60's per monitor.Diprivan drip infusing at 10 mcg/kg/min.Levophed drip infusing via MONICO midline at 2 mcg/min for BP support and will titrate accordingly.OGT feeding well tolerated.No residual noted.Anuric.HD patient for HD in am.Left femoral HD cath intact. No acute distress noted.Turned and repositioned.Contact isolation for MRSA nares implemented.
[2016-12-26] MEDS: OLANZAPINE 2.5 MG TABLET PO SCH (21:31)
[2016-12-26] MEDS: PREGABALIN 25 MG CAPSULE PO SCH (21:31)
[2016-12-27] VITALS (103 sets, daily range): BP systolic 61–136; BP diastolic 30–89
--- NOTE | 2016-12-27 01:00 | NUR ---
Patient sleeping VS stable.SR 96 per monitor.80's-90''s.Tolerating O2 NRB mask. Addendum: 12/27/16 at 0441 by MATTHEW BUSH RN Please disregard above notes.WRONG ENTRY.
[2016-12-27 05:06] LABS: EOSINOPHILS % (AUTO) 0.1 % (0.0-6.0); HEMATOCRIT 35 % (39-51); HEMOGLOBIN 11.4 g/dL (13.5-17.5); LYMPHOCYTES # (AUTO) 0.4 /CMM (0.8-4.8); LYMPHOCYTES % (AUTO) 9.8 % (20.0-44.0); MEAN CORPUSCULAR HEMOGLOBIN 27 PG (26.0-33.0); MEAN CORPUSCULAR HGB CONC 32 g/dl (31.0-36.0); MEAN CORPUSCULAR VOLUME 84 fL (80-96); MONOCYTES # (AUTO) 0.4 /CMM (0.1-1.30); MONOCYTES % (AUTO) 9.3 % (2.0-12.0); NEUTROPHILS # (AUTO) 3.4 /CMM (1.8-8.9); NEUTROPHILS % (AUTO) 80.8 % (43.0-81.0); PLATELET COUNT (AUTO) 117 /CMM (150-450); RED BLOOD CELL COUNT(AUTO) 4.21 MIL/uL (4.5-6.0); WHITE BLOOD COUNT (AUTO) 4.2 K/uL (4.3-11.0)
[2016-12-27 05:25] LABS: CALCIUM, SERUM 6.8 mg/dL (8.5-10.1); CARBON DIOXIDE 29 mmol/L (21-32); CHLORIDE 90 mmol/L (98-107); CREATININE 4.5 mg/dL (0.6-1.3); GLUCOSE 191 mg/dL (74-106); SODIUM SERUM 128 mmol/L (136-145); UREA NITROGEN, BLOOD 56 mg/dL (7-18)
--- NOTE | 2016-12-27 06:40 | NUR ---
Patient resting.VS stable.OGT feeding tolerated.Turned and repositioned.No significant change noted during the shift.No BM.Levophed drip still at 2 mcg/min. and diprivan drip at 10 mcg. Awaiting weaning trial today.
--- NOTE | 2016-12-27 07:45 | NUR ---
ICU/RN - Initial Notes Received pt in orally intubated to mechanical vent with settings as ordered. No respiratory distress noted. Pt sedated on Propofol drip. No s/s of pain or discomfort. On tele reading Accelerated junctional rhythm 60. Tolerating tube feeding well, no residual noted. Right foot gangrene with dressings intact. Bilateral lower extremities offloaded. Levophed drip titrated accordingly. Safety and comfort measures in place. Pt suctioned and repositioned for comfort. Will continue to monitor pt closely.
[2016-12-27] MEDS: PROSOURCE / PROSTAT (PYXIS) 30 ML UDC GT SCH (08:19)
[2016-12-27] MEDS: HYDROCORTISONE SOD SUCCINATE 100 MG/2 ML VIAL IV SCH ×3 (08:19→17:37)
[2016-12-27] MEDS: ASPIRIN 81 MG TAB.CHEW PO SCH (08:19)
[2016-12-27] MEDS: VIT B CMPLX 3/FA/VIT C/BIOTIN 1 TAB TABLET PO SCH (08:19)
[2016-12-27] MEDS: CINACALCET HCL 30 MG TABLET PO SCH (08:19)
[2016-12-27] MEDS: SEVELAMER CARBONATE 0.8 GM POWD.PACK PO SCH ×3 (08:19→17:37)
[2016-12-27] MEDS: PROPOFOL 100 ML IV PRN (08:20)
[2016-12-27] MEDS: MEROPENEM 500 MG in IV NS 0.9% 50 ML IV SCH ×2 (08:20→20:09)
[2016-12-27] MEDS: PANTOPRAZOLE 40 MG/PACK PACK GT SCH (08:20)
[2016-12-27] MEDS: MUPIROCIN OINT 2% 22 GM TUBE TP SCH ×2 (08:33→21:33)
[2016-12-27] MEDS: VANCOMYCIN 500 MG in IV D5W 100 ML IV PRN (09:29)
--- NOTE | 2016-12-27 09:50 | NUR ---
ICU/RN - Notes Bilateral soft wrist restraints in place to prevent risk of injury - pulling out ETT tube and invasive lines as pt propofol to be titrated down and anticipate ventilator wean trial today.
--- NOTE | 2016-12-27 11:00 | NUR ---
ICU/RN - Notes At 1000, Propofol drip titrated down for sedation vacation and mechanical ventilator weaning trial today. At this time pt awake with eyes open and alert, able to move all four extremities purposefully. Will continue to monitor pt closely.
--- NOTE | 2016-12-27 11:45 | NUR ---
ICU/RN - Notes Hemodialysis completed with 3000 mL output.
--- NOTE | 2016-12-27 11:54 | NUR ---
PT FAILED SPONTANEOUS BREATHING TRIAL WITH CATERERS HELPER AT BEDSIDE. PT PLACED BACK ON ASSIST CONTROL MODE DUE LOW LUNG VOLUMES.
--- NOTE | 2016-12-27 11:55 | NUR ---
ICU/RN - Notes Pt placed on SIMV mode on mechanical ventilator by RT Millre. Dr Larios at bedside. Per MD pt noted with low volumes and weak respiratory muscles. Pt unable to tolerate SIMV mode and placed back on AC mode as ordered by outbound sales consultant.
--- NOTE | 2016-12-27 14:54 | NUR ---
ICU/RN - Notes Pt remains off sedation at this time, calm and cooperative, and no acute distress. Family at bedside, updated on plan of care.
[2016-12-27] MEDS: oxyCODONE/APAP (5/325 MG) 1 UDTAB TABLET PO PRN (17:37)
--- NOTE | 2016-12-27 17:40 | NUR ---
ICU/RN - Notes Pt noted with facial grimacing. Pt medicated with Percocet 5/325 1 tab as ordered for PRN pain to ensure comfort while pt is intubated. Comfort measures in place. Will reassess pain accordingly.
[2016-12-27] MEDS: RENAL NOVASOURCE 1,000 ML BOTTLE GT PRN (18:39)
--- NOTE | 2016-12-27 18:44 | NUR ---
ICU/RN - Notes Pt appears comfortable in no acute distress. Family at bedside.
[2016-12-27] MEDS: IV NS 0.9% 250 ML IV PRN (18:51)
--- NOTE | 2016-12-27 19:30 | NUR ---
MACHINE BUFFER RCD PT W/DX RESP FAIL; PT IS ALERT AND ABLE TO FOLLOW COMMANDS. BL SOFT WRIST RESTRAINTS IN PLACE FOR SAFETY. INTUBATED 7.5 @ 25 W/VENT SETTINGS AC 14 450 40% 5; MIN AMOUNT OF SECRETIONS NOTED. MONICO MIDLINE PATENT AND FLUSHING WELL. LEVOPHED AT 2 MCG/MIN. CONTINUE TO MONITOR. HOB ELEVATED. BED LOCKED AND IN LOW POSITION.
[2016-12-27] MEDS: PREGABALIN 25 MG CAPSULE PO SCH (21:33)
[2016-12-27] MEDS: OLANZAPINE 2.5 MG TABLET PO SCH (21:35)
[2016-12-28] VITALS (100 sets, daily range): BP systolic 67–143; BP diastolic 22–95
[2016-12-28 04:43] LABS: BASOPHILS % (AUTO) 0.1 % (0.0-2.0); HEMATOCRIT 33 % (39-51); HEMOGLOBIN 10.7 g/dL (13.5-17.5); LYMPHOCYTES # (AUTO) 0.4 /CMM (0.8-4.8); LYMPHOCYTES % (AUTO) 8.5 % (20.0-44.0); MEAN CORPUSCULAR HEMOGLOBIN 27 PG (26.0-33.0); MEAN CORPUSCULAR HGB CONC 32 g/dl (31.0-36.0); MEAN CORPUSCULAR VOLUME 84 fL (80-96); MONOCYTES # (AUTO) 0.5 /CMM (0.1-1.30); MONOCYTES % (AUTO) 11.4 % (2.0-12.0); NEUTROPHILS # (AUTO) 3.5 /CMM (1.8-8.9); PLATELET COUNT (AUTO) 102 /CMM (150-450); RDW COEFFICIENT OF VARIATION 19.6 (11.5-15.0); RED BLOOD CELL COUNT(AUTO) 3.94 MIL/uL (4.5-6.0); WHITE BLOOD COUNT (AUTO) 4.3 K/uL (4.3-11.0)
[2016-12-28 04:56] LABS: CALCIUM, SERUM 6.8 mg/dL (8.5-10.1); CARBON DIOXIDE 32 mmol/L (21-32); CHLORIDE 94 mmol/L (98-107); CREATININE 3.5 mg/dL (0.6-1.3); GLUCOSE 178 mg/dL (74-106); POTASSIUM 3.9 mmol/L (3.5-5.1); SODIUM SERUM 132 mmol/L (136-145); UREA NITROGEN, BLOOD 47 mg/dL (7-18)
--- NOTE | 2016-12-28 07:45 | NUR ---
ICU/RN - Initial Notes Received pt in orally intubated to mechanical vent with settings as ordered. No respiratory distress noted. Pt awake and alert x3, using pencil and paper to communicate needs. On tele reading Accelerated junctional rhythm 60. Tolerating tube feeding well. Right foot gangrene with dressings intact. Bilateral lower extremities offloaded. Safety and comfort measures in place. Pt suctioned and repositioned for comfort. Will continue to monitor pt closely.
[2016-12-28] MEDS: MEROPENEM 500 MG in IV NS 0.9% 50 ML IV SCH ×2 (07:59→20:28)
[2016-12-28] MEDS: PANTOPRAZOLE 40 MG/PACK PACK GT SCH (08:00)
[2016-12-28] MEDS: PROSOURCE / PROSTAT (PYXIS) 30 ML UDC GT SCH (08:00)
[2016-12-28] MEDS: VIT B CMPLX 3/FA/VIT C/BIOTIN 1 TAB TABLET PO SCH (08:00)
[2016-12-28] MEDS: HYDROCORTISONE SOD SUCCINATE 100 MG/2 ML VIAL IV SCH ×3 (08:00→16:57)
[2016-12-28] MEDS: SEVELAMER CARBONATE 0.8 GM POWD.PACK PO SCH ×3 (08:00→17:00)
[2016-12-28] MEDS: ASPIRIN 81 MG TAB.CHEW PO SCH (08:00)
[2016-12-28] MEDS: CINACALCET HCL 30 MG TABLET PO SCH (08:00)
[2016-12-28] MEDS: MUPIROCIN OINT 2% 22 GM TUBE TP SCH ×2 (08:01→21:54)
[2016-12-28] MEDS: GENTAMICIN 0.1% OINT 15 GM TUBE TP SCH (08:01)
[2016-12-28] MEDS: NOREPINEPHRINE 16 MG in IV D5W 500 ML IV PRN (09:02)
--- NOTE | 2016-12-28 12:00 | NUR ---
ICU/RN - Notes Family at bedside. Released from bilateral soft wrist restraints at this time. Pt calm and cooperative.
[2016-12-28 12:59] LABS: MAGNESIUM 2.1 mg/dL (1.8-2.4); PHOSPHORUS 3.6 mg/dL (2.5-4.9)
[2016-12-28] MEDS: LEVOFLOXACIN (250MG) 250 MG TABLET PO SCH (14:31)
[2016-12-28] MEDS: RENAL NOVASOURCE 1,000 ML BOTTLE GT PRN (16:57)
[2016-12-28] MEDS: IV NS 0.9% 250 ML IV PRN (16:57)
--- NOTE | 2016-12-28 19:30 | NUR ---
MANAGER VIDEO RCD PT W/DX RESP FAIL; PT IS ALERT AND ABLE TO FOLLOW COMMANDS. INTUBATED 7.5 @ 25 W/VENT SETTINGS AC 14 450 40% 5; MIN AMOUNT OF SECRETIONS NOTED. MONICO MIDLINE PATENT AND FLUSHING WELL. LEVOPHED AT 1 MCG/MIN. CONTINUE TO MONITOR. HOB ELEVATED. BED LOCKED AND IN LOW POSITION.
[2016-12-28] MEDS: PREGABALIN 25 MG CAPSULE PO SCH (21:53)
[2016-12-28] MEDS: OLANZAPINE 2.5 MG TABLET PO SCH (21:53)
[2016-12-29] VITALS (81 sets, daily range): BP systolic 82–121; BP diastolic 34–67
[2016-12-29 04:34] LABS: HEMATOCRIT 32 % (39-51); HEMOGLOBIN 10.2 g/dL (13.5-17.5); LYMPHOCYTES # (AUTO) 0.3 /CMM (0.8-4.8); LYMPHOCYTES % (AUTO) 8.4 % (20.0-44.0); MEAN CORPUSCULAR HEMOGLOBIN 27 PG (26.0-33.0); MEAN CORPUSCULAR HGB CONC 32 g/dl (31.0-36.0); MEAN CORPUSCULAR VOLUME 85 fL (80-96); MONOCYTES # (AUTO) 0.4 /CMM (0.1-1.30); MONOCYTES % (AUTO) 8.9 % (2.0-12.0); NEUTROPHILS # (AUTO) 3.3 /CMM (1.8-8.9); NEUTROPHILS % (AUTO) 82.7 % (43.0-81.0); PLATELET COUNT (AUTO) 88 /CMM (150-450); RDW COEFFICIENT OF VARIATION 19.6 (11.5-15.0); RED BLOOD CELL COUNT(AUTO) 3.76 MIL/uL (4.5-6.0)
[2016-12-29 04:56] LABS: CALCIUM, SERUM 6.7 mg/dL (8.5-10.1); CHLORIDE 92 mmol/L (98-107); CREATININE 4.2 mg/dL (0.6-1.3); GLUCOSE 186 mg/dL (74-106); MAGNESIUM 2.2 mg/dL (1.8-2.4); PHOSPHORUS 3.5 mg/dL (2.5-4.9); SODIUM SERUM 133 mmol/L (136-145); UREA NITROGEN, BLOOD 66 mg/dL (7-18)
--- NOTE | 2016-12-29 05:00 | NUR ---
FINANCE ADMINISTRATOR RESUMED LEVOPHED AT 0.5 MCG/MIN FOR SBP 80s; ATTEMPTED TO WEAN OFF LEVOPHED HOWEVER SBP IN THE 80s FOR THE PAST HOUR. CONTINUE TO MONITOR.
[2016-12-29 05:06] LABS: LYMPHOCYTES % (MANUAL) 10 % (16-48); MONOCYTES % (MANUAL) 7 % (0-11.0); NEUTROPHILS % (MANUAL) 83 (42-76)
[2016-12-29 05:09] LABS: CARBON DIOXIDE 28 mmol/L (21-32)
--- NOTE | 2016-12-29 07:26 | NUR ---
ICU/RN INITIAL NOTES,AM RECEIVED REPORT FROM NIGHT NURSE. PT INTUBATED, ETT 7.5 AND 25CM AT THE LIP. ON VENT SETTINGS ORDERED BY MD, NO ACUTE DISTRESS NOTED AT THIS TIME. PT ON TELE, ACCELERATED JUNCTIONAL, PACE MAKER ON LEFT CHEST WALL, NOT PACING. PT ALERT, AWAKE, FOLLOWING COMMANDS. NOVASOURCE INFUSING AT 25 ML/HR. TOLERATING WELL. PT ANURIC, WILL HAVE H.D. TODAY. MIDLINE PATENT AND INTACT, NO S/S OF INFECTION NOTED, PT ON LOW DOSE LEVO FOR BP SUPPORT. ALL NEEDS WILL BE MET, SAFETY MEASURES TAKEN, BED IN LOW POSITION, SIDE RAILS UP, CALL LIGHT WITHIN REACH. WILL CONTINUE TO MONITOR.
[2016-12-29] MEDS: PROSOURCE / PROSTAT (PYXIS) 30 ML UDC GT SCH (08:19)
[2016-12-29] MEDS: PANTOPRAZOLE 40 MG/PACK PACK GT SCH (08:19)
[2016-12-29] MEDS: HYDROCORTISONE SOD SUCCINATE 100 MG/2 ML VIAL IV SCH ×3 (08:19→17:04)
[2016-12-29] MEDS: SEVELAMER CARBONATE 0.8 GM POWD.PACK PO SCH ×3 (08:19→17:04)
[2016-12-29] MEDS: CINACALCET HCL 30 MG TABLET PO SCH (08:19)
[2016-12-29] MEDS: ASPIRIN 81 MG TAB.CHEW PO SCH (08:19)
[2016-12-29] MEDS: VIT B CMPLX 3/FA/VIT C/BIOTIN 1 TAB TABLET PO SCH (08:19)
[2016-12-29] MEDS: GENTAMICIN 0.1% OINT 15 GM TUBE TP SCH (08:21)
[2016-12-29] MEDS: MUPIROCIN OINT 2% 22 GM TUBE TP SCH ×2 (08:32→21:27)
--- NOTE | 2016-12-29 10:38 | NUR ---
ICU/RN: HEMODIALYSIS DONE. 2.5 LITERS OUT. TITRATING LEVO. WILL CONTINUE TO MONITOR. VSS AT THIS TIME.
[2016-12-29] MEDS: MEROPENEM 500 MG in IV NS 0.9% 50 ML IV SCH ×2 (10:54→20:05)
[2016-12-29] MEDS: VANCOMYCIN 500 MG in IV D5W 100 ML IV PRN (12:03)
--- NOTE | 2016-12-29 13:00 | NUR ---
ICU/RN: POST HEMODIALYSIS VANCOMYCIN INFUSED. PRE DIALYSIS LEVEL CHECKED, 18. PHARMACIST NOTIFIED, OK TO ADMIN.
--- NOTE | 2016-12-29 13:05 | NUR ---
ICU/RN: PT PUT ON SIMV 4, PS 12, 40%, PEEP 5. PT TOLERATING WELL, WILL CONTINUE TO MONITOR AND WILL OBTAIN ABG
[2016-12-29] MEDS ORDERED: DC PROPOFOL WHEN EXTUBATED XX PRN (14:00)
[2016-12-29 14:30] LABS: ABG BASE EXCESS 5.6 mmol/L; ABG OXYGEN SATURATION 96.3 % (92.0-98.5); ABG PCO2 60.8 mmHg (35.0-45.0); ABG PH 7.349 (7.350-7.450); ABG PO2 98.5 mmHg (75.0-100.0); AaDO2 116.8 mmHg; COHb 0.8 % (0.5-1.5); MetHb 0.8 % (0.0-1.5); O2Hb 94.8 % (94.0-97.0); PEEP,BG 5 cm H2O; SITE, ABG Right Brachial
--- NOTE | 2016-12-29 15:30 | NUR ---
ICU/RN: PER MD ORDERS, PT EXTUBATED. PT PLACED ON 5 02 VIA NASAL CANULA, NO ACUTE DISTRESS NOTED. PT CONTINUES TO MAINTAIN O2 SAT >95%. PT SUCTIONED. WILL CONTINUE TO MONITOR AND ASSESS. WILL REPEAT BLOOD GAS
--- NOTE | 2016-12-29 15:30 | NUR ---
RT NOTE: PATIENT EXTUBATED AT THIS TIME AND PLACED ON 5LPM VIA NASAL CANNULA PER . TOLERATED WELL. WILL CONTINUE TO MONITOR.
[2016-12-29 17:27] LABS: ABG BASE EXCESS 4.8 mmol/L; ABG OXYGEN SATURATION 98.7 % (92.0-98.5); ABG PH 7.396 (7.350-7.450); ABG PO2 177.8 mmHg (75.0-100.0); AaDO2 48.8 mmHg; COHb 0.7 % (0.5-1.5); MetHb 0.9 % (0.0-1.5); O2Hb 97.1 % (94.0-97.0); SITE, ABG Right Brachial; VENT MODE, BG NASAL CANNULA
--- NOTE | 2016-12-29 17:30 | NUR ---
ICU/RN: PT BATHE, DRESSING CHANGES DONE. TURNED AND REPOSITIONED. ALL NEEDS MET, WILL CONTINUE CARE. VSS
--- NOTE | 2016-12-29 19:13 | NUR ---
ICU/RN ENDING NOTES,AM REPORT ENDORSED TO NIGHT NURSE FOR CONTINUATION OF CARE. PT EXTUBATED, ON 2 LITERS 02 VIA NASAL CANULA, NO ACUTE DISTRESS NOTED. PT JUNCTIONAL ON TELE. MAINTAINING BP, LEVO OFF. PT BATHE, TURNED AND REPOSITIONED. NPO AT THIS TIME, SWALLOW EVAL TOMORROW. SAFETY MEASURES TAKEN, BED IN LOW POSITION, SIDE RAILS UP, CALL LIGHT WITHIN REACH.
--- NOTE | 2016-12-29 19:30 | NUR ---
COLLEGE INSTRUCTOR RCD PT W/DX HYPOTENSION. PT A/O x4. EXTUBATED TODAY. NO IMMEDIATE S/O RESP DIST TOLERATING O2 VIA NC. CONTINUE TO MONITOR.
[2016-12-29] MEDS: PREGABALIN 25 MG CAPSULE PO SCH (21:27)
[2016-12-29] MEDS: OLANZAPINE 2.5 MG TABLET PO SCH (21:27)
[2016-12-30] VITALS (43 sets, daily range): BP systolic 84–147; BP diastolic 40–86
--- NOTE | 2016-12-30 02:00 | NUR ---
SALES AND BUSINESS DEVELOPMENT MANAGER PT GIVEN COMPLETE BED BATH; ELECTRODES CHANGED. ORAL CARE RENDERED. CONTINUE TO MONITOR.
--- NOTE | 2016-12-30 04:30 | NUR ---
CLINICAL PROGRAM MANAGER PT NOTED WITH SBP 80s; CONTINUE TO MONITOR IF NEEDED WILL START LEVOPHED PRN. CONTINUE TO MONITOR.
[2016-12-30 04:38] LABS: BASOPHILS % (AUTO) 0.1 % (0.0-2.0); HEMATOCRIT 33 % (39-51); HEMOGLOBIN 10.6 g/dL (13.5-17.5); LYMPHOCYTES # (AUTO) 0.2 /CMM (0.8-4.8); LYMPHOCYTES % (AUTO) 6.4 % (20.0-44.0); MEAN CORPUSCULAR HEMOGLOBIN 28 PG (26.0-33.0); MEAN CORPUSCULAR HGB CONC 32 g/dl (31.0-36.0); MEAN CORPUSCULAR VOLUME 86 fL (80-96); MONOCYTES # (AUTO) 0.2 /CMM (0.1-1.30); MONOCYTES % (AUTO) 4.6 % (2.0-12.0); NEUTROPHILS # (AUTO) 3.2 /CMM (1.8-8.9); NEUTROPHILS % (AUTO) 88.9 % (43.0-81.0); PLATELET COUNT (AUTO) 71 /CMM (150-450); RDW COEFFICIENT OF VARIATION 19.8 (11.5-15.0); RED BLOOD CELL COUNT(AUTO) 3.86 MIL/uL (4.5-6.0); WHITE BLOOD COUNT (AUTO) 3.6 K/uL (4.3-11.0)
[2016-12-30 04:53] LABS: CALCIUM, SERUM 6.9 mg/dL (8.5-10.1); CARBON DIOXIDE 33 mmol/L (21-32); CHLORIDE 95 mmol/L (98-107); CREATININE 3.7 mg/dL (0.6-1.3); GLUCOSE 139 mg/dL (74-106); POTASSIUM 4.5 mmol/L (3.5-5.1); SODIUM SERUM 135 mmol/L (136-145); UREA NITROGEN, BLOOD 59 mg/dL (7-18)
[2016-12-30 05:47] LABS: LYMPHOCYTES % (MANUAL) 4 % (16-48); MONOCYTES % (MANUAL) 4 % (0-11.0); NEUTROPHILS % (MANUAL) 92 (42-76)
--- NOTE | 2016-12-30 07:15 | NUR ---
RN INITIAL NOTES RECEIVED PT AWAKE, A/OX4. ON 02 AT 2LPM VIA NC. NO RESPIRATORY DISTRESS NOTED. NO SOB NOTED. HOB ELEVATED. MIDLINE IN PLACE. HD LINE ON LEFT FEMORAL INTACT. PT CLEAN AND DRY. BLE ELEVATED. CALL LIGHT WITHIN REACH. WILL MONITOR.
--- NOTE | 2016-12-30 07:59 | NUR ---
WOUND CARE CONSULT: PT PRESENTS WITH STAGE 2 ULCER OF SACRAL AREA. RECOMMENDATIONS MADE FOR SKIN PROTECTION AND WOUND CARE. DISCUSSED WITH NURSING STAFF. FIRST STEP MATTRESS TO BE APPLIED. ALL SKIN PROTECTION MEASURES IN PLACE. PT TO BE TURNED AND REPOSITIONED EVERY 2 HRS PT CONDITION PERMITS, HEELS FLOATED. PT FOLLOWED BY PODIATRY FOR LOWER EXTREMITY WOUNDS. WILL SEE PRN. HUI IN AGREEMENT WITH PLAN OF CARE. Addendum: 12/30/16 at 0801 by RAJWINDER GHOSH Amended: Links added. Addendum: 12/30/16 at 0804 by RAJWINDER GHOSH PT NOTED TO HAVE MULTIPLE CO-MORBIDITIES INCLUDING RENAL FAILURE, RESPIRATORY FAILURE (JUST EXTUBATED YESTERDAY).
[2016-12-30] MEDS ORDERED: HYDROGEL DRESSING 90 GM TUBE TP PRN (08:00)
[2016-12-30] MEDS: VIT B CMPLX 3/FA/VIT C/BIOTIN 1 TAB TABLET PO SCH (08:13)
[2016-12-30] MEDS: MEROPENEM 500 MG in IV NS 0.9% 50 ML IV SCH (08:13)
[2016-12-30] MEDS: CINACALCET HCL 30 MG TABLET PO SCH (08:13)
[2016-12-30] MEDS: HYDROCORTISONE SOD SUCCINATE 100 MG/2 ML VIAL IV SCH ×3 (08:13→17:07)
[2016-12-30] MEDS: PANTOPRAZOLE 40 MG/PACK PACK GT SCH (08:13)
[2016-12-30] MEDS: SEVELAMER CARBONATE 0.8 GM POWD.PACK PO SCH ×3 (08:13→17:07)
[2016-12-30] MEDS: ASPIRIN 81 MG TAB.CHEW PO SCH (08:13)
[2016-12-30] MEDS: PROSOURCE / PROSTAT (PYXIS) 30 ML UDC GT SCH (08:13)
[2016-12-30] MEDS: GENTAMICIN 0.1% OINT 15 GM TUBE TP SCH (08:14)
--- NOTE | 2016-12-30 08:50 | NUR ---
RN NOTES SEEN AND EXAMINED BY DR. VALLADARES. PT SP EXTUBATION 12/29/16. ON NC AT 2LPM. NO RESPIRATORY DISTRESS NOTED. NO SOB NOTED. HOB ELEVATED. DENIES ANY PAIN. TRIED SWALLOW EVAL AT BEDSIDE. ABLE TO TOLERATE APPLE SAUCE AND REGULAR LIQUID. NO COUGHING NOTED. NO SIGNS OF ASPIRATION NOTED. MD ORDERED START PUREED RENAL DIET AND PT EVAL. NOTED AND CARRIED OUT.
--- NOTE | 2016-12-30 09:00 | NUR ---
RN NOTES SEEN AND EXAMINED BY CONRAD MARTIN) FOR SWALLOW EVAL. ABLE TO SWALLOW JELLO AND APPLE SAUCE. WILL START PT ON PURRED RENAL WITH ASPIRATION PRECAUTIONS.
[2016-12-30] MEDS: MUPIROCIN OINT 2% 22 GM TUBE TP SCH ×2 (09:08→21:37)
[2016-12-30] MEDS: HYDROGEL DRESSING 90 GM TUBE TP SCH (10:41)
[2016-12-30] MEDS: LEVOFLOXACIN (250MG) 250 MG TABLET PO SCH (15:27)
--- NOTE | 2016-12-30 16:00 | NUR ---
RN NOTES SEEN AND EVALUATED BY PT. PT TOLERATED WELL. WILL FF PT 5X/WK.
--- NOTE | 2016-12-30 17:25 | NUR ---
RN NOTES SEEN AND EXAMINED BY DR. SANTOS. AWARE OF PT'S STATUS, CURRENT LAB VALUES AND CXR RESULT. PT TOLERATING 02 AT 5LPM VIA NC. NO RESPIRATORY DISTRESS NOTED. KEPT HOB ELEVATED. PT HAS ORDER TO DOWNGRADE TO TELE. AWAITING FOR AVAILABLE ROOM. SON AT BEDSIDE AWARE.
--- NOTE | 2016-12-30 18:45 | NUR ---
RN CLOSING NOTES PT REMAINS STABLE. NO SIGNIFICANT CHANGE NOTED. TOLERATES PO MEALS WELL. MIDLINE IN PLACE. HD CATH INTACT. KEPT CLEAN AND DRY. ASSISTED IN REPOSITIONING. TX ORDERED. KEPT COMFORTABLE. ALL NEEDS ANTICIPATED AND MET. CALL LIGHT WITHIN REACH. WILL ENDORSE FOR CONTINUITY OF CARE.
--- NOTE | 2016-12-30 20:40 | NUR ---
CONTACT CENTRE SUPERVISOR - REC'D PT. W/FAMILY AT . PT. IS NOW "TELE" STATUS. A&O X 3, HEART MONITOR SHOWS INTERMITTENT JUNCTIONAL RHYTHM W/BBB, THEN SR W/2ND DEGREE BLOCK. PT.IS ASYMPTOMATIC. SBP'S ARE WNL. PT.IS ON O2/5L/NC W/O2 SATS >94%. PT'S DINNER TRAY AT . PT.WANTS TO EAT "LATER". ANURIC. DIALYSIS PT. MULTIPLE WOUND/SKIN ISSUES NOTED. PT.IS SITTING IN HIS WHEELCHAIR AT . ALL PULSES PALPABLE X 4 EXT. BLE'S ARE WEAK TO PALPATE. PT.IS IN ISOLATION FOR MRSA & PSEUDOMONAS (RT.FOOT & NARES.). CONT.POC.
[2016-12-30] MEDS: OLANZAPINE 2.5 MG TABLET PO SCH (21:37)
[2016-12-30] MEDS: PREGABALIN 25 MG CAPSULE PO SCH (21:37)
--- NOTE | 2016-12-30 22:10 | NUR ---
SOFTWARE ENGINEER KERNEL RCD PT FROM ICU. VSS. PT ORIENTED TO UNIT. PT EATING DINNER AT THIS TIME.
--- NOTE | 2016-12-30 22:15 | NUR ---
CLINICAL LAB CLERK - PT. TRANSFERRED TO #118/TELEMETRY DEPT. ESTEFANI MANZANO GIVEN VERBAL REPORT AT BEDSIDE. PT.TRANSFERRED IN HIS OWN WHEELCHAIR W/ACLS PROTOCOL & 2 RN ASSIST. PT. TX'D W/O INCIDENCE. CONT. POC.
[2016-12-31] VITALS (7 sets, daily range): BP systolic 80–148; BP diastolic 41–85
--- NOTE | 2016-12-31 | NUR ---
ERP IMPLEMENTATION CONSULTANT PT ASSISTED BACK TO BED. NO SIGNS OF DISTRESS NOTED. CONTINUE TO MONITOR.
[2016-12-31 06:42] LABS: CALCIUM, SERUM 6.9 mg/dL (8.5-10.1); CARBON DIOXIDE 31 mmol/L (21-32); CHLORIDE 92 mmol/L (98-107); CREATININE 4.2 mg/dL (0.6-1.3); GLUCOSE 132 mg/dL (74-106); POTASSIUM 4.4 mmol/L (3.5-5.1); SODIUM SERUM 130 mmol/L (136-145); UREA NITROGEN, BLOOD 68 mg/dL (7-18)
[2016-12-31 06:44] LABS: BASOPHILS % (AUTO) 0.1 % (0.0-2.0); EOSINOPHILS % (AUTO) 0.1 % (0.0-6.0); HEMATOCRIT 35 % (39-51); HEMOGLOBIN 11.1 g/dL (13.5-17.5); LYMPHOCYTES # (AUTO) 0.2 /CMM (0.8-4.8); LYMPHOCYTES % (AUTO) 4.3 % (20.0-44.0); MEAN CORPUSCULAR HEMOGLOBIN 27 PG (26.0-33.0); MEAN CORPUSCULAR HGB CONC 32 g/dl (31.0-36.0); MEAN CORPUSCULAR VOLUME 86 fL (80-96); MONOCYTES # (AUTO) 0.3 /CMM (0.1-1.30); MONOCYTES % (AUTO) 6.2 % (2.0-12.0); NEUTROPHILS # (AUTO) 4.1 /CMM (1.8-8.9); NEUTROPHILS % (AUTO) 89.3 % (43.0-81.0); PLATELET COUNT (AUTO) 86 /CMM (150-450); RDW COEFFICIENT OF VARIATION 19.5 (11.5-15.0); RED BLOOD CELL COUNT(AUTO) 4.07 MIL/uL (4.5-6.0); WHITE BLOOD COUNT (AUTO) 4.6 K/uL (4.3-11.0)
--- NOTE | 2016-12-31 07:08 | NUR ---
ORTHOTIST OR PROSTHETIST PT WITH MEDICATION BOTTLE FROM 2015; DECLINES TO SEND TO PHARMACY. WILL ENDORSE TO DAY SHIFT FOR FAMILY TO TAKE. CONTINUE TO MONITOR.
[2016-12-31] MEDS: CINACALCET HCL 30 MG TABLET PO SCH (08:54)
[2016-12-31] MEDS: HYDROCORTISONE SOD SUCCINATE 100 MG/2 ML VIAL IV SCH (08:54)
[2016-12-31] MEDS: SEVELAMER CARBONATE 0.8 GM POWD.PACK PO SCH (08:55)
[2016-12-31] MEDS: VIT B CMPLX 3/FA/VIT C/BIOTIN 1 TAB TABLET PO SCH (08:55)
[2016-12-31] MEDS: PANTOPRAZOLE 40 MG/PACK PACK GT SCH (08:55)
[2016-12-31] MEDS: MUPIROCIN OINT 2% 22 GM TUBE TP SCH ×2 (08:55→21:53)
[2016-12-31] MEDS: ASPIRIN 81 MG TAB.CHEW PO SCH (08:55)
[2016-12-31] MEDS: HYDROGEL DRESSING 90 GM TUBE TP SCH (08:56)
[2016-12-31] MEDS: GENTAMICIN 0.1% OINT 15 GM TUBE TP SCH (08:57)
[2016-12-31] MEDS: PROSOURCE / PROSTAT (PYXIS) 30 ML UDC GT SCH (08:58)
[2016-12-31 09:18] LABS: LYMPHOCYTES % (MANUAL) 4 % (16-48); MONOCYTES % (MANUAL) 9 % (0-11.0); NEUTROPHILS % (MANUAL) 87 (42-76)
--- NOTE | 2016-12-31 12:07 | NUR ---
RN NOTE RN SPOKE WITH PHARMACY IN REGARDS TO THE PATIENT MEDICATION BEING ORDERED GT- ROUTE OK'D RN TO CHANGE ROUTE TO PO FORM . PER PATIENT REQUEST . RN WILL CONTINUE TO FOLLOW.
[2016-12-31] MEDS: ALBUMIN 25% 25 GM in PREMIX 1 EA IV PRN ×2 (13:26→14:59)
[2016-12-31] MEDS: SEVELAMER CARBONATE 800 MG TABLET PO SCH ×2 (14:47→17:06)
[2016-12-31] MEDS: VANCOMYCIN 500 MG in IV D5W 100 ML IV PRN (14:47)
[2016-12-31] MEDS ORDERED: GENT30OI2 TP (15:39)
[2016-12-31] MEDS ORDERED: LEVO250T2 PO (15:39)
[2016-12-31] MEDS ORDERED: VIT1TABL44 PO (15:39)
[2016-12-31] MEDS ORDERED: METH4TAB16 PO (15:39)
[2016-12-31] MEDS ORDERED: VANC1PLA10 IV (15:39)
--- NOTE | 2016-12-31 15:58 | NUR ---
RN NOTE PATIENT HAS DISCHARGE ORDERS VIA MD SANTOS HOWEVER MD MARR STATES THE PATIENT IS UNABLE TO DISCHARGE DUE TO DECREASED B/P AND NEED FOR HD , ALSO KIERA HEEL ATTACHER NOTIFIED IN REGARDS TO THE MD REQUEST. PATIENT NOTIFIED ABOUT THE NEED FOR DISCHARGE PATIENT REFUSES TO GO TO THE [facility] AT THIS TIME RN WILL CONTINUE TO FOLLOW
[2016-12-31] MEDS ORDERED: HYDROCORTISONE SOD SUCCINATE 100 MG/2 ML VIAL IV SCH (17:00)
--- NOTE | 2016-12-31 19:15 | NUR ---
RN CLOSING NOTES PT REMAINS STABLE. NO SIGNIFICANT CHANGE NOTED. MIDLINE IN PLACE. HD CATH INTACT HD PERFORMED TODAY 1 L REMOVED , PATIENT B/P DECREASED POST HD , HOWEVER PATIENT STABLE AT THIS TIME . PT KEPT CLEAN AND DRY. ASSISTED IN REPOSITIONING. ALL NEEDS ANTICIPATED AND MET. CALL LIGHT WITHIN REACH. WILL ENDORSE TO PM RN FOR CONTINUITY OF CARE.
--- NOTE | 2016-12-31 19:15 | NUR ---
RN INITIAL NOTES RECEIVED PATIENT IN BED, SLEEPING COMFORTABLY. PATIENT IS EASILY AROUSABLE WITH VERBAL AND TACTILE STIMULI. PATIENT DENIES ANY PAIN AND DISCOMFORT. ON 2LPM OF O2 VIA NC, RESPIRATION IS EVEN AND UNLABORED WITH NO DISTRESS. L FEMORAL HD CATH WITH DRESSING INTACT, NO DISCHARGE AND NO BLEEDING NOTED. MONICO PICC LINE, FLUSHED AND INTACT. PATIENT'S NEEDS ANTICIPATED AND MET. SAFETY AND COMFORT ENSURED. BED IN LOW AND LOCKED POSITION. REPOSITIONED FOR COMFORT. CALL LIGHT IN REACH. WILL MONITOR.
[2016-12-31] MEDS: PREGABALIN 25 MG CAPSULE PO SCH (21:52)
[2016-12-31] MEDS: OLANZAPINE 2.5 MG TABLET PO SCH (21:52)
[2017-01-01 04:00] VITALS: BP 84/40
--- NOTE | 2017-01-01 06:36 | NUR ---
RN CLOSING NOTES PATIENT WITH NO ACUTE CHANGE IN CONDITION OBSERVED OVERNIGHT. PATIENT PROVIDED WITH REORIENTATION NEEDED. MONICO PICC LINE FLUSHED AND KEPT PATENT. DRESSING CHANGE ON PATIENT'S R DIABETIC FOOT ULCERATION CHANGED PER PATIENT'S REQUEST. NO ACTIVE BLEEDING NOTED ON SITE, PATIENT WITH NO C/O PAIN AND DISCOMFORT WITH WOUND DRESSING DONE. PATIENT KEPT CLEAN AND DRY. TURNED AND REPOSITIONED. NEEDS ANTICIPATED AND MET. SAFETY AND COMFORT ENSURED. BED IN LOW AND LOCKED POSITION. CALL LIGHT IN REACH. WILL ENDORSE ACCORDINGLY FOR CONTINUITY OF CARE.
[2017-01-01 06:42] LABS: EOSINOPHILS # (AUTO) 0.2 /CMM (0.0-0.7); HEMATOCRIT 30 % (39-51); HEMOGLOBIN 9.6 g/dL (13.5-17.5); LYMPHOCYTES # (AUTO) 0.4 /CMM (0.8-4.8); LYMPHOCYTES % (AUTO) 7.4 % (20.0-44.0); MEAN CORPUSCULAR HEMOGLOBIN 28 PG (26.0-33.0); MEAN CORPUSCULAR HGB CONC 32 g/dl (31.0-36.0); MEAN CORPUSCULAR VOLUME 87 fL (80-96); MONOCYTES # (AUTO) 0.4 /CMM (0.1-1.30); NEUTROPHILS # (AUTO) 3.8 /CMM (1.8-8.9); NEUTROPHILS % (AUTO) 79.6 % (43.0-81.0); PLATELET COUNT (AUTO) 83 /CMM (150-450); RDW COEFFICIENT OF VARIATION 19.3 (11.5-15.0); RED BLOOD CELL COUNT(AUTO) 3.47 MIL/uL (4.5-6.0); WHITE BLOOD COUNT (AUTO) 4.8 K/uL (4.3-11.0)
[2017-01-01 06:43] VITALS: BP 84/40
[2017-01-01 07:02] LABS: CALCIUM, SERUM 7.3 mg/dL (8.5-10.1); CARBON DIOXIDE 32 mmol/L (21-32); CHLORIDE 95 mmol/L (98-107); CREATININE 3.5 mg/dL (0.6-1.3); GLUCOSE 68 mg/dL (74-106); MAGNESIUM 2.1 mg/dL (1.8-2.4); PHOSPHORUS 3.9 mg/dL (2.5-4.9); POTASSIUM 3.8 mmol/L (3.5-5.1); SODIUM SERUM 133 mmol/L (136-145); UREA NITROGEN, BLOOD 45 mg/dL (7-18)
[2017-01-01 08:00] VITALS: BP 76/38
--- NOTE | 2017-01-01 08:00 | NUR ---
RN INITIAL NOTES RECEIVED PATIENT IN BED, SLEEPING COMFORTABLY. PATIENT IS EASILY AROUSABLE. PATIENT DENIES ANY PAIN AND DISCOMFORT. ON 2LPM OF O2 VIA NC, RESPIRATION IS EVEN AND UNLABORED WITH NO DISTRESS.PT HAS L FEMORAL HD CATH WITH DRESSING INTACT, NO DISCHARGE AND NO BLEEDING NOTED. MONICO PICC LINE, FLUSHED AND INTACT. PT BED IN LOW AND LOCKED POSITION. REPOSITIONED FOR COMFORT. CALL LIGHT IN REACH. RN WILL MONITOR PT THROUGHOUT THE DAY .
[2017-01-01 08:23] LABS: EOSINOPHILS % (MANUAL) 10 % (0-4); LYMPHOCYTES % (MANUAL) 4 % (16-48); MONOCYTES % (MANUAL) 4 % (0-11.0); NEUTROPHILS % (MANUAL) 82 (42-76)
[2017-01-01] MEDS: PROSOURCE / PROSTAT (PYXIS) 30 ML UDC GT SCH (09:00)
[2017-01-01] MEDS: SEVELAMER CARBONATE 800 MG TABLET PO SCH ×3 (09:32→18:16)
[2017-01-01] MEDS: ASPIRIN 81 MG TAB.CHEW PO SCH (09:32)
[2017-01-01] MEDS: CINACALCET HCL 30 MG TABLET PO SCH (09:32)
[2017-01-01] MEDS: VIT B CMPLX 3/FA/VIT C/BIOTIN 1 TAB TABLET PO SCH (09:32)
[2017-01-01] MEDS: PANTOPRAZOLE 40 MG TABLET.DR PO SCH (09:32)
[2017-01-01] MEDS: HYDROGEL DRESSING 90 GM TUBE TP SCH (09:33)
[2017-01-01] MEDS: GENTAMICIN 0.1% OINT 15 GM TUBE TP SCH (09:33)
[2017-01-01] MEDS: Z GUARD REMEDY 2 OZ OINT TP PRN (09:33)
[2017-01-01] MEDS: MUPIROCIN OINT 2% 22 GM TUBE TP SCH ×2 (09:33→21:17)
[2017-01-01 11:50] LABS: INR 1.3 (0.87-1.13); PROTHROMBIN TIME 14.1 SECS (9.5-12.7)
--- NOTE | 2017-01-01 13:21 | NUR ---
RN NOTE PATIENT SEEMS MORE LETHARGIC TODAY IN COMPARISON TO YESTERDAY PATIENT ABLE TO ANSWER QUESTIONS HOWEVER PATIENT IS UNABLE TO STAY AWAKE THROUGHOUT THE DAY PATIENT STATES HE IS HOT AND TAKES OFF HIS GOWN. PATIENT ALSO REFUSED RENVELA FOR 1300. RN TURNED THE PATIENT THERMOSTAT DOWN.
[2017-01-01 16:00] VITALS: BP 95/54
[2017-01-01] MEDS: LEVOFLOXACIN (250MG) 250 MG TABLET PO SCH (18:16)
[2017-01-01 20:00] VITALS: BP 155/95
[2017-01-01] MEDS: PREGABALIN 25 MG CAPSULE PO SCH (21:16)
[2017-01-01] MEDS: OLANZAPINE 2.5 MG TABLET PO SCH (21:16)
[2017-01-02 04:00] VITALS: BP 102/53
--- NOTE | 2017-01-02 06:26 | NUR ---
MS RN CLOSING NOTES PT ON BED, REMAINS STABLE. NO SIGNIFICANT CHANGE NOTED. WITH 02@LPM VIA NC. MIDLINE IN PLACE. HD CATH INTACT HD PERFORMED LAST NIGHT, 3.4 LITER REMOVED , PATIENT B/P DECREASED POST HD , RECEIVED 2 BOTTLE OF ALBUMIN PATIENT STABLE AT THIS TIME . RECEIVED BREATHING TREATMENT BY RT. PT KEPT CLEAN AND DRY. ASSISTED IN REPOSITIONING. ALL NEEDS ANTICIPATED AND MET. CALL LIGHT WITHIN REACH. WILL ENDORSE TO AM RN FOR CONTINUITY OF CARE.
--- NOTE | 2017-01-02 07:12 | NUR ---
RN INITIAL NOTES: REC'D PT AWAKE ON BED, NOT IN ANY DISTRESS, A/O X 3, ABLE TO MAKE NEEDS KNOWN. PT ON O2 AT 2LPM/NC, NO SOB NOTED. HAS L FEMORAL HD CATH IN PLACE W/ C/D/I DRESSING. HAS MONICO PICC LINE, FLUSHED, PATENT & INTACT W/ NO S/SX OF INFECTION/ INFILTRATION NOTED. PROVIDED COMFORT & SAFETY MEASURES. BED KEPT LOW & IN LOCKED POS. CALL LIGHT PLACED W/IN REACH. WILL CONTINUE TO MONITOR.
[2017-01-02 08:00] VITALS: BP 147/116
[2017-01-02] MEDS: VIT B CMPLX 3/FA/VIT C/BIOTIN 1 TAB TABLET PO SCH (08:54)
[2017-01-02] MEDS: PANTOPRAZOLE 40 MG TABLET.DR PO SCH (08:54)
[2017-01-02] MEDS: ASPIRIN 81 MG TAB.CHEW PO SCH (08:54)
[2017-01-02] MEDS: CINACALCET HCL 30 MG TABLET PO SCH (08:54)
[2017-01-02] MEDS: SEVELAMER CARBONATE 800 MG TABLET PO SCH ×3 (08:54→18:00)
[2017-01-02] MEDS: HYDROGEL DRESSING 90 GM TUBE TP SCH (08:55)
[2017-01-02] MEDS: PROSOURCE / PROSTAT (PYXIS) 30 ML UDC GT SCH (08:55)
[2017-01-02] MEDS: MUPIROCIN OINT 2% 22 GM TUBE TP SCH ×3 (08:56→21:30)
[2017-01-02] MEDS: Z GUARD REMEDY 2 OZ OINT TP PRN (08:56)
[2017-01-02] MEDS: GENTAMICIN 0.1% OINT 15 GM TUBE TP SCH (08:56)
--- NOTE | 2017-01-02 10:30 | NUR ---
RN INITIAL NOTES: HD ENDED C/O NATACHA CHA W/ 500 CC OUTPUT. PT TOLERATED THE PROCEDURE WELL.
[2017-01-02 11:12] LABS: HEPATITIS Be AB Negative (Negative)
[2017-01-02 11:50] VITALS: BP 99/59
--- NOTE | 2017-01-02 14:07 | NUR ---
RN NOTES: DAVID SANTACRUZ MADE AWARE THAT PT KEEP ON REFUSING BLOOD DRAW FOR VANCOMYCIN TROUGH LEVEL. PT HAD HD TODAY.
--- NOTE | 2017-01-02 14:39 | NUR ---
RN NOTES: DR. SANTOS MADE AWARE THAT PT KEEPS ON REFUSING MEDICAL TREATMENT.
[2017-01-02 16:00] VITALS: BP 97/54
--- NOTE | 2017-01-02 17:00 | NUR ---
RN NOTES: SON MADE AWARE THAT PT IS REFUSING THE TREATMENT BEING GIVEN. PER SON, HE IS USUALLY LIKE THAT - ON & OFF, DEPENDS ON HIS MOOD. PER SON, HE WANTED HIS FATHER TO BE ON THE SAME HD CENTER ([facility]) AND NOT TO BE TRANSFERRED TO US RENAL - THIS WAS COMMUNICATED TO CARMEN ZAVALA.
--- NOTE | 2017-01-02 18:55 | NUR ---
RN CLOSING NOTES: NO ACUTE CHANGES NOTED W/IN SHIFT. PT TOLERATED O2 AT 2LPM/NC, NO SOB NOTED. L FEMORAL HD CATH KEPT IN PLACE W/ C/D/I DRESSING. MONICO PICC LINE, KEPT PATENT & INTACT W/ NO S/SX OF INFECTION/ INFILTRATION NOTED. DAVID SANTACRUZ IS AWARE THAT PT IS REFUSING BLOOD DRAW FOR VANCO TROUGH. PT NOTED TO BE NON COMPLIANT W/ TX AND CARE BEING GIVEN. KEPT WELL RESTED. NEEDS ATTENDED. BED KEPT LOW & IN LOCKED POS. CALL LIGHT PLACED W/IN REACH. WILL ENDORSE TO PM RN FOR WAYNE.
--- NOTE | 2017-01-02 19:30 | NUR ---
MS RN INITIAL NOTE PT RECEIVED IN BED. ON 2L OF O2 VIA NASAL CANNULA AND SATURATING WELL. A/O X3 AND ABLE TO MAKE SOME NEEDS KNOWN. BREATHING REGULAR, EVEN AND UNLABORED. IV MONICO PICC LINE CLEAN, PATENT AND FLUSHING WELL. L FEMORAL HD CATH IN PLACE, SECURED AND CLEAN. BED IN LOWEST POSITION AND LOCKED IN PLACE WITH BED ALARM ON. CALL LIGHT WITHIN REACH. ISOLATION PRECAUTIONS OBSERVED. WILL CONTINUE TO MONITOR.
[2017-01-02 20:00] VITALS: BP 120/69
[2017-01-02] MEDS: PREGABALIN 25 MG CAPSULE PO SCH ×2 (21:24→21:32)
[2017-01-02] MEDS: OLANZAPINE 2.5 MG TABLET PO SCH ×2 (21:25→21:32)
[2017-01-03 04:00] VITALS: BP_SYST 102; BP_SYST 127; BP_DIAS 54; BP_DIAS 73
[2017-01-03 06:58] LABS: BASOPHILS % (AUTO) 0.2 % (0.0-2.0); EOSINOPHILS # (AUTO) 0.3 /CMM (0.0-0.7); EOSINOPHILS % (AUTO) 6.2 % (0.0-6.0); HEMATOCRIT 31 % (39-51); HEMOGLOBIN 10.1 g/dL (13.5-17.5); LYMPHOCYTES # (AUTO) 0.3 /CMM (0.8-4.8); MEAN CORPUSCULAR HEMOGLOBIN 28 PG (26.0-33.0); MEAN CORPUSCULAR HGB CONC 32 g/dl (31.0-36.0); MEAN CORPUSCULAR VOLUME 87 fL (80-96); MONOCYTES # (AUTO) 0.3 /CMM (0.1-1.30); NEUTROPHILS # (AUTO) 4.1 /CMM (1.8-8.9); NEUTROPHILS % (AUTO) 81.6 % (43.0-81.0); PLATELET COUNT (AUTO) 85 /CMM (150-450); RDW COEFFICIENT OF VARIATION 19.5 (11.5-15.0); RED BLOOD CELL COUNT(AUTO) 3.62 MIL/uL (4.5-6.0)
--- NOTE | 2017-01-03 07:12 | NUR ---
RN INITIAL NOTES: REC'D PT ASLEEP ON BED, NOT IN ANY DISTRESS, AROUSABLE BY VERBAL & TACTILE STIMULI, A/O X 3, ABLE TO MAKE NEEDS KNOWN BUT IS NON COMPLIANT W/ TREATMENT. PT ON O2 AT 2LPM/NC, NO SOB NOTED. HAS L FEMORAL HD CATH IN PLACE W/ C/D/I DRESSING. HAS MONICO PICC LINE, FLUSHED, PATENT & INTACT W/ NO S/SX OF INFECTION/ INFILTRATION NOTED. PROVIDED COMFORT & SAFETY MEASURES. BED KEPT LOW & IN LOCKED POS. BED ALARM ON. CALL LIGHT PLACED W/IN REACH. WILL CONTINUE TO MONITOR.
[2017-01-03 07:25] LABS: CARBON DIOXIDE 29 mmol/L (21-32); CHLORIDE 98 mmol/L (98-107); CREATININE 3.5 mg/dL (0.6-1.3); POTASSIUM 4.4 mmol/L (3.5-5.1); SODIUM SERUM 138 mmol/L (136-145); UREA NITROGEN, BLOOD 39 mg/dL (7-18)
[2017-01-03] MEDS: PANTOPRAZOLE 40 MG TABLET.DR PO SCH (07:30)
--- NOTE | 2017-01-03 07:31 | NUR ---
MS RN CLOSING NOTE PT REMAINED STABLE DURING SHIFT. ALL DUE MEDS REFUSED BY PT. EXPLAINED RISKS AND BENEFITS X' 3AND PT STILL REFUSED. PT CLEANED AND CHANGED. BED IN LOWEST POSITION AND LOCKED IN PLACE. CALL LIGHT WITHIN REACH. WILL ENDORSE TO NEXT SHIFT FOR CONTINUITY OF CARE.
--- NOTE | 2017-01-03 07:35 | NUR ---
RN NOTES: DR. GONZALEZ MADE AWARE THAT PER SON HE DOESN'T WANT HIS FATHER'S HD CENTER TO BE CHANGE TO [facility] AND WANTED TO STICK W/ [facility].
--- NOTE | 2017-01-03 07:59 | NUR ---
RN NOTES: PT REFERRED TO DR. GONZALEZ DUE TO POOR ORAL INTAKE AND PT NON COMPLIANT WITH MEDICAL TREATMENT BEING GIVEN, ORDERS FOR PSYCH CONSULT. NO FLUIDS AT THIS TIME, HD PT. CN MADE AWARE.
[2017-01-03 08:00] VITALS: BP 88/49
[2017-01-03] MEDS: SEVELAMER CARBONATE 800 MG TABLET PO SCH ×3 (08:00→17:31)
[2017-01-03 08:05] LABS: GLUCOSE 35 mg/dL (74-106)
[2017-01-03] MEDS: CINACALCET HCL 30 MG TABLET PO SCH (09:00)
[2017-01-03] MEDS: VIT B CMPLX 3/FA/VIT C/BIOTIN 1 TAB TABLET PO SCH (09:00)
[2017-01-03] MEDS: ASPIRIN 81 MG TAB.CHEW PO SCH (09:00)
[2017-01-03] MEDS: PROSOURCE / PROSTAT (PYXIS) 30 ML UDC GT SCH (09:00)
--- NOTE | 2017-01-03 09:20 | NUR ---
RN NOTES: ACCUCHECK 21 MG/DL, PT IS A/O X2, REFUSING TO EAT AND TO TAKE MEDS. BP 120/62. PT WAS REFERRED TO DAVID BARNES W/ ORDERS TO GIVE [id number] IVP NOW.
[2017-01-03] MEDS ORDERED: DEXTROSE 50%-WATER 50 ML DISP.SYRIN IVP ONE (09:30)
[2017-01-03] MEDS: GENTAMICIN 0.1% OINT 15 GM TUBE TP SCH (09:32)
[2017-01-03] MEDS: MUPIROCIN OINT 2% 22 GM TUBE TP SCH ×2 (09:32→21:23)
[2017-01-03] MEDS: HYDROGEL DRESSING 90 GM TUBE TP SCH (09:33)
[2017-01-03 09:34] LABS: EOSINOPHILS % (MANUAL) 9 % (0-4); LYMPHOCYTES % (MANUAL) 1 % (16-48); MONOCYTES % (MANUAL) 1 % (0-11.0); NEUTROPHILS % (MANUAL) 3 (42-76)
[2017-01-03] MEDS: IV D5/ 0.9% NACL 1,000 ML IV PRN (09:42)
[2017-01-03 10:00] VITALS: BP 120/62
--- NOTE | 2017-01-03 10:08 | NUR ---
RN NOTES: DR. GONZALEZ MADE AWARE OF LOW BLOOD SUGAR 21 MG/DL W/ ORDERS TO START IVF D5NS X 50 CC/HR. RECHECKED BLOOD SUGAR 77 MG/DL.
--- NOTE | 2017-01-03 10:30 | NUR ---
RN NOTES: HD STARTED C/O SEMAJ HD RN.
[2017-01-03] MEDS ORDERED: DEXTROSE 50%-WATER 50 ML DISP.SYRIN IV PRN (12:30)
[2017-01-03] MEDS ORDERED: INSULIN REGULAR, HUMAN 100 UNIT/ML 3 ML VIAL SQ PRN (12:30)
[2017-01-03] MEDS: BLOOD SUGAR DIAGNOSTIC 1 EACH STRIP IN SCH ×3 (12:54→21:32)
--- NOTE | 2017-01-03 13:00 | NUR ---
RN NOTES: HD ENDED BY NATACHA CHA. PT TOLERATED WELL THE PROCEDURE, 2.5 L OUTPUT. BP 110/55, OH 84.
--- NOTE | 2017-01-03 13:26 | NUR ---
RN NOTES: PT SEEN & EXAMINED BY DR. BATES (PSYCH CONSULT) W/ ORDERS MADE & CARRIED OUT.
[2017-01-03] MEDS ORDERED: OLANZAPINE 2.5 MG TABLET PO PRN (14:00)
[2017-01-03 16:00] VITALS: BP 102/54
[2017-01-03] MEDS: LEVOFLOXACIN (250MG) 250 MG TABLET PO SCH (17:31)
[2017-01-03] MEDS: VANCOMYCIN 500 MG in IV D5W 100 ML IV PRN (18:37)
--- NOTE | 2017-01-03 18:59 | NUR ---
RN CLOSING NOTES: NO ACUTE CHANGES NOTED W/IN SHIFT. PT TOLERATED O2 AT 2LPM/NC, NO SOB NOTED. L FEMORAL HD CATH KEPT IN PLACE W/ C/D/I DRESSING. MONICO PICC LINE, KEPT PATENT & INTACT W/ NO S/SX OF INFECTION/ INFILTRATION NOTED. PT'S SON AT BEDSIDE ABLE TO CONVINCE PT TO EAT A LITTLE BUT STILL REFUSING. SONS UPDATED ABOUT PT WHEREABOUTS W/IN SHIFT. NO CONCERNS EXPRESSED AT THIS TIME. PER MP FROM PHARMACY OKAY TO GIVE VANCOMYCIN 500 MG IV POST HD (TROUGH 20). NEEDS ATTENDED. BED KEPT LOW & IN LOCKED POS. CALL LIGHT PLACED W/IN REACH. WILL ENDORSE TO PM RN FOR WAYNE.
--- NOTE | 2017-01-03 19:30 | NUR ---
RN NOTES: -RECEIVED ASLEEP ON BED WITH HIS 2 SON PRESENT AT BED SIDE,ON O2 AT 2L/MIN VIA NC, NO SIGN OF SOB OR RESPIRATORY DISTRESS, ALERT AND VERBALLY RESPONSIVE, PERIODS OF FORGETFULNESS,NON COMPLIANT WITH TREATMENT AND MEDICATION, HE WAS ABLE TO VERBALIZE HIS NEEDS,PICC ON OPAL INTACT AND PATENT, WITH IVF ONGOING D5NS AT 50ML/HR,LEFT FEMORAL HD IN PLACE, DRESSING INTACT, NO SIGN OF INFECTION NOTED.FALL, SAFETY AND ASPIRATION PRECAUTION OBSERVE, CALL LIGHT WITHIN EASY REACH, TURNING DONE AND KEPT ON CLOSE VISUAL CHECK.
[2017-01-03 20:00] VITALS: BP 120/61
[2017-01-03] MEDS: PREGABALIN 25 MG CAPSULE PO SCH (22:00)
[2017-01-03] MEDS: OLANZAPINE 2.5 MG TABLET PO SCH (22:00)
--- NOTE | 2017-01-03 22:00 | NUR ---
RN NOTES: PATIENT IS AWAKE AND COHERENT,AFTER A THOROUGH EXPLANATION TO DO BLOOD SUGAR TEST, HE AGREED,RESULT-79,WILL CONTINUE TO MONITOR FOR SIGN OF HYPER AND HYPOGLYCEMIA.
--- NOTE | 2017-01-03 22:12 | NUR ---
RN NOTES: EXPLAINED TO PATIENT THE NEED AND ACTION OF THE MEDICATION, BUT DESPITE EXPLANATION HE STRONGLY REFUSED TO TAKE HIS LYRICA AND ZYPREXA.CN NOTIFIED.
[2017-01-04 04:00] VITALS: BP 114/81
[2017-01-04] MEDS: IV D5/ 0.9% NACL 1,000 ML IV PRN (05:53)
--- NOTE | 2017-01-04 05:57 | NUR ---
RN NOTES: IVF FINISHED, REPLACE WITH A NEW BAG OF D5NS AT 50CC/HR,MORNING CARE DONE,HE IS REMOVING HIS NASAL CANNULA, EXPLAINED IT TO HIM THAT HE NEEDS HIS O2,TRYING TO PUT IT BACK BUT HE RESIST AND REMOVE IT.WILL CONTINUE TO MONITOR.
--- NOTE | 2017-01-04 06:45 | NUR ---
RN NOTES: EXPLAINED TO HIM NEED TO CHECK THE BLOOD SUGAR, HE SHOUT AND SAID"I DONT WANT IT ANYMORE",RN TRIED TO PACIFY HIM BUT HE STRONGLY REFUSED.WILL ENDORSED TO NEXT SHIFT TO TRY AGAIN LATER.
[2017-01-04] MEDS: BLOOD SUGAR DIAGNOSTIC 1 EACH STRIP IN SCH ×4 (07:30→22:00)
[2017-01-04] MEDS: PANTOPRAZOLE 40 MG TABLET.DR PO SCH (07:30)
--- NOTE | 2017-01-04 07:30 | NUR ---
RN NOTES: ASLEEP AT SHORT INTERVALS, WITH ON AND OFF DRY COUGH,ENDORSED FOR CONTINUITY OF CARE,HE REFUSED BLOOD EXTRACTION IN THE MORNING, STEEL MELTER WILL RETURN BACK AGAIN LATER.
--- NOTE | 2017-01-04 07:42 | NUR ---
RN NOTES RECEIVED PT IN STABLE CONDITION, A&OX3, ON ROOM AIR REFUSING NASAL CANNULA AND BLOOD SUGAR CHECK. NO SOB OR DISTRESS NOTED. RUE PICC DRESSING DRY AND INTACT D5NS@50ML/HR. CALL LIGHT WITHIN REACH, SIDE RAILS UPX3, BED LOCKED AND IN LOWEST POSITION, WILL CONT TO MONITOR.
[2017-01-04 08:00] VITALS: BP 105/82
[2017-01-04] MEDS: SEVELAMER CARBONATE 800 MG TABLET PO SCH ×3 (08:00→18:00)
--- NOTE | 2017-01-04 08:30 | NUR ---
RN NOTES PT STILL REFUSING BLOOD SUGAR AND AM MEDS, STATES HE WANTS TO JUST SLEEP. WILL TRY AGAIN.
[2017-01-04] MEDS: GENTAMICIN 0.1% OINT 15 GM TUBE TP SCH (09:00)
[2017-01-04] MEDS: HYDROGEL DRESSING 90 GM TUBE TP SCH (09:00)
[2017-01-04] MEDS: PROSOURCE / PROSTAT (PYXIS) 30 ML UDC GT SCH (09:00)
[2017-01-04] MEDS: MUPIROCIN OINT 2% 22 GM TUBE TP SCH ×2 (09:30→21:30)
--- NOTE | 2017-01-04 09:35 | NUR ---
RN NOTES TRIED TO TAKE BLOOD SUGAR ONE MORE TIME AND GIVE AM MEDS, WITH ANOTHER RN AT BEDSIDE. EXPLAINED CONSEQUENCES, STILL SAYS NO THANK YOU.
--- NOTE | 2017-01-04 10:55 | NUR ---
RN NOTES ATTEMPTED WITH CHARGE NURSE RY TO TAKE BLOOD SUGAR, PT STILL REFUSES.
[2017-01-04] MEDS ORDERED: OLANZAPINE 5 MG/TAB.RAPDIS PO PRN (11:30)
--- NOTE | 2017-01-04 11:30 | NUR ---
RN NOTES DR SANTOS MADE AWARE THAT PT IS REFUSING EVERYTHING.
[2017-01-04] MEDS: OLANZAPINE 5 MG/TAB.RAPDIS PO SCH ×2 (11:51→17:00)
[2017-01-04] MEDS: VIT B CMPLX 3/FA/VIT C/BIOTIN 1 TAB TABLET PO SCH (11:51)
[2017-01-04] MEDS: CINACALCET HCL 30 MG TABLET PO SCH (11:51)
[2017-01-04] MEDS: ASPIRIN 81 MG TAB.CHEW PO SCH (11:51)
--- NOTE | 2017-01-04 12:01 | NUR ---
RN NOTES PT SON AT BEDSIDE, PT AGREED TO BLOOD SUGAR CHECK AND TOOK A FEW AM MEDICATIONS.
[2017-01-04 16:00] VITALS: BP 121/77
--- NOTE | 2017-01-04 17:43 | NUR ---
RN NOTES PT REFUSED 1700 MEDICATION AND ACCUCHECK, ATTEMPTED TO SPEAK WITH PT 2X, INFORMED OF IMPORTANCE, STILL REFUSES. WILL TRY AGAIN.
--- NOTE | 2017-01-04 18:39 | NUR ---
RN NOTES PT RESTING IN BED NO SOB OR DISTRESS NOTED. CONTINUES TO REFUSE MEDICATIONS, ACCUCHECK, AND DINNER. SISTER WAS AT THE BEDSIDE EARLIER SHE IS AWARE, STATES HE IS STUBBORN. PT CLEANED AND TURNED. WILL ENDORSE TO ONCOMING SHIFT.
[2017-01-04 20:00] VITALS: BP 116/63
[2017-01-04] MEDS: PREGABALIN 25 MG CAPSULE PO SCH (22:00)
[2017-01-05 01:02] VITALS: BP 116/63
[2017-01-05] MEDS: IV D5/ 0.9% NACL 1,000 ML IV PRN (03:01)
[2017-01-05 04:00] VITALS: BP 151/46
--- NOTE | 2017-01-05 07:00 | NUR ---
RN NOTES RECEIVED PT ON BED ,A&OX3, RESPIRATION EVEN AND UNLABORED, NO SOB NOTED, PT REFUSED TO HAVE HIS TEMPERATURE CHECKED , PT EDUCATED REGARDING THE RISKS OF NOT KNOWING WHAT IS HIS BODY TEMPERATURE , PT STILL REFUSED, RUE PICC DRESSING DRY AND INTACT D5NS@50ML/HR. CALL LIGHT WITHIN EASY REACH, SIDE RAILS UPX3, BED LOCKED AND IN LOWEST POSITION, WILL CONT TO MONITOR PT CLOSELY AND NOTIFY MD FOR ANY SIGNIFICANT CHANGES .
[2017-01-05 07:17] LABS: BASOPHILS % (AUTO) 0.4 % (0.0-2.0); EOSINOPHILS # (AUTO) 0.3 /CMM (0.0-0.7); EOSINOPHILS % (AUTO) 5.1 % (0.0-6.0); HEMATOCRIT 32 % (39-51); HEMOGLOBIN 10.1 g/dL (13.5-17.5); LYMPHOCYTES # (AUTO) 0.5 /CMM (0.8-4.8); LYMPHOCYTES % (AUTO) 9.2 % (20.0-44.0); MEAN CORPUSCULAR HEMOGLOBIN 27 PG (26.0-33.0); MEAN CORPUSCULAR HGB CONC 32 g/dl (31.0-36.0); MEAN CORPUSCULAR VOLUME 87 fL (80-96); MONOCYTES # (AUTO) 0.6 /CMM (0.1-1.30); MONOCYTES % (AUTO) 12.1 % (2.0-12.0); NEUTROPHILS # (AUTO) 3.7 /CMM (1.8-8.9); NEUTROPHILS % (AUTO) 73.2 % (43.0-81.0); PLATELET COUNT (AUTO) 102 /CMM (150-450); RDW COEFFICIENT OF VARIATION 19.9 (11.5-15.0); RED BLOOD CELL COUNT(AUTO) 3.69 MIL/uL (4.5-6.0); WHITE BLOOD COUNT (AUTO) 5.1 K/uL (4.3-11.0)
[2017-01-05 07:27] LABS: CALCIUM, SERUM 7.5 mg/dL (8.5-10.1); CARBON DIOXIDE 30 mmol/L (21-32); CHLORIDE 102 mmol/L (98-107); GLUCOSE 130 mg/dL (74-106); POTASSIUM 3.6 mmol/L (3.5-5.1); SODIUM SERUM 142 mmol/L (136-145); UREA NITROGEN, BLOOD 30 mg/dL (7-18)
[2017-01-05] MEDS: PANTOPRAZOLE 40 MG TABLET.DR PO SCH (07:30)
[2017-01-05] MEDS: BLOOD SUGAR DIAGNOSTIC 1 EACH STRIP IN SCH ×4 (07:30→22:29)
--- NOTE | 2017-01-05 07:46 | NUR ---
RN NOTES PT REFUSED C-XRAY . PT STATED I HAVE RIGHT TO REFUSE. PT EDUCATED REGARDING OF CHEST X-RAY AND THE REASON FOR IT , PT STILL REFUSED
[2017-01-05 08:00] VITALS: BP 92/68
[2017-01-05] MEDS: SEVELAMER CARBONATE 800 MG TABLET PO SCH ×3 (08:00→17:13)
[2017-01-05] MEDS: PROSOURCE / PROSTAT (PYXIS) 30 ML UDC GT SCH (08:46)
[2017-01-05] MEDS: VIT B CMPLX 3/FA/VIT C/BIOTIN 1 TAB TABLET PO SCH (08:47)
[2017-01-05] MEDS: ASPIRIN 81 MG TAB.CHEW PO SCH (08:47)
[2017-01-05] MEDS: CINACALCET HCL 30 MG TABLET PO SCH (08:47)
[2017-01-05] MEDS: OLANZAPINE 5 MG/TAB.RAPDIS PO SCH ×2 (08:47→17:00)
[2017-01-05] MEDS: MUPIROCIN OINT 2% 22 GM TUBE TP SCH ×2 (08:48→21:30)
--- NOTE | 2017-01-05 08:48 | NUR ---
RN NOTES PT REFUSED ALL MORNING MEDS , PT EDUCATED REGARDING RISKS OF NOT TAKING THE MEDS, PT STILL REFUSED
[2017-01-05] MEDS: GENTAMICIN 0.1% OINT 15 GM TUBE TP SCH (09:00)
[2017-01-05] MEDS: HYDROGEL DRESSING 90 GM TUBE TP SCH (09:00)
--- NOTE | 2017-01-05 13:23 | NUR ---
RN NOTES PT REFUSED HD , DR SANTOS NOTIFIED.
--- NOTE | 2017-01-05 13:33 | NUR ---
RN NOTES PT REFUSED TO TURN AND BE REPOSITION ON BED, STATED DO NOT TOUCH ME .
[2017-01-05] MEDS: LEVOFLOXACIN (250MG) 250 MG TABLET PO SCH (14:10)
--- NOTE | 2017-01-05 15:00 | NUR ---
RN NOTES PT REFUSED WOUND CARE , PT GETS COMBATIVE WHEN STAFF MEMBERS GET CLOSE TO HIM TO DO ANY PATIENT CARE , DR MOYA AND JEANETTE TADEO NOTIFIED .
[2017-01-05 16:00] VITALS: BP_SYST 103; BP_DIAS 62; BP_DIAS 67
--- NOTE | 2017-01-05 16:00 | NUR ---
RN NOTES PT REFUSED TO CHECK HIS TEMPERATURE. EDUCATED HOW IMPORTANT IS TO TAKE HIS TEMPERATURE , PT STILL REFUSED ,
--- NOTE | 2017-01-05 18:09 | NUR ---
RN NOTES PT REMAINS THE SAME , CONTINUE TO REFUSED MEDICATION , ACCU CHECK, VSS STABLE , SR UP x3, BED LOCKED AND IN LOWEST POSITION , BED ALARM ON FOR PT SAFETY, WILL ENDORSE TO NEXT SHIFT NURSE FOR CONTINUITY OF CARE.
--- NOTE | 2017-01-05 19:05 | NUR ---
RN OPENING NOTES RECEIVED REPORT FROM AM RN. PATIENT IN BED, A/A/O X3 W/ SOME CONFUSION. VERBALLY RESPONSIVE AND ABLE TO MAKE NEEDS KNOWN. BREATHING EVEN AND UNLABORED, ON O2 2L VIA NC. DENIES SOB OR DIFFICULTY BREATHING. PULSES PRESENT. SKIN WARM TO TOUCH. LEFT UPPER ARM PICC PATENT W/ DRESSING CDI & IVF D5 NS @ 50 ML/HR. LEFT FEMORAL HD CATH INTACT W/ DRESSING CDI. DENIES ANY PAIN OR DISCOMFORT @ THIS TIME. SAFETY MEASURES IN PLACE W/ SIDE RAILS UP, BED LOCKED IN LOWEST POSITION, CALL LIGHT WITHIN REACH. WILL CONTINUE TO MONITOR.
[2017-01-05 20:00] VITALS: BP 136/31
[2017-01-05] MEDS: PREGABALIN 25 MG CAPSULE PO SCH (22:00)
--- NOTE | 2017-01-05 22:00 | NUR ---
RN NOTES PATIENT REFUSED ALL NIGHT MEDS AND REFUSED TO KEEP O2 ON. CHARGE NURSE AWARE.
--- NOTE | 2017-01-05 22:50 | NUR ---
RN NOTES PATIENT AGREED TO BLOOD SUGAR CHECK W/ CHARGE NURSE @ BEDSIDE. STILL REFUSED TO TAKE OTHER NIGHT MEDS & PUT NASAL CANNULA BACK ON. RISKS & BENEFITS EXPLAINED, STILL REFUSED.
--- NOTE | 2017-01-06 01:35 | NUR ---
RN NOTES TRANSFERRED CARE TO LISY MANZANO.
--- NOTE | 2017-01-06 01:35 | NUR ---
RN NOTE RECEIVED PT FROM NUZHAT MANZANO FOR CONTINUITY OF CARE. PT IS VERY UNCOOPERATIVE AND DISMISSIVE WHEN TRYING TO COMMUNICATE WITH PT. PT REFUSES CARE AND JUST SAYS " YOU CAN LEAVE". PT REMOVED N/C FROM NOSE. PT HAS BEEN KNOWN TO DESAT WHEN NO O2 IS GIVEN. UNABLE TO CHECK O2 SAT BECAUSE THE PT REFUSES. CHARGE NURSE NOTIFIED AND WILL CONTINUE TO TRY TO HELP PT AND GIVE CARE.
--- NOTE | 2017-01-06 04:31 | NUR ---
RN NOTE PT IS VERY FORGETFUL AND IS REPETITIVE ABOUT CALLING SISTER. CHARGE NURSE TRIED TO CONTACT SISTER AND LEFT MESSAGE, BUT SISTER NEVER CALLED BACK. PT BECAME VERY ARGUMENTATIVE TOWARDS STAFF. PT STILL UNCOOPERATIVE WITH TREATMENT AND REFUSING CARE.
--- NOTE | 2017-01-06 07:00 | NUR ---
RN NOTES RECEIVED ON BED, A/Ox3, WITH PERIODS OF CONFUSION , RESPIRATION EVEN AND UNLABORED ON O2 AT 2 L N/C, NO SOB NOTED, LEFT UPPER ARM PICC LINE SITE CDI , IVF D5 NS @ 50 ML/HR. LEFT FEMORAL HD CATH INTACT W/ DRESSING CDI. DENIES ANY PAIN OR DISCOMFORT @ THIS TIME. PT REFUSED BLOOD DRAWING AND CHEST X RAY THIS AM, SR UP x3, CALL LIGHT WITHIN EASY REACH ,CALL LIGHT WITHIN REACH. WILL CONTINUE TO MONITOR PT CLOSELY .
[2017-01-06] MEDS: PANTOPRAZOLE 40 MG TABLET.DR PO SCH (07:30)
[2017-01-06] MEDS: BLOOD SUGAR DIAGNOSTIC 1 EACH STRIP IN SCH ×4 (07:30→22:44)
[2017-01-06] MEDS: SEVELAMER CARBONATE 800 MG TABLET PO SCH ×3 (08:00→17:13)
--- NOTE | 2017-01-06 08:00 | NUR ---
RN NOTES PT REFUSED VITAL SIGNS
[2017-01-06] MEDS: VIT B CMPLX 3/FA/VIT C/BIOTIN 1 TAB TABLET PO SCH (09:00)
[2017-01-06] MEDS: PROSOURCE / PROSTAT (PYXIS) 30 ML UDC GT SCH (09:00)
[2017-01-06] MEDS: CINACALCET HCL 30 MG TABLET PO SCH (09:00)
[2017-01-06] MEDS: ASPIRIN 81 MG TAB.CHEW PO SCH (09:00)
[2017-01-06] MEDS: HYDROGEL DRESSING 90 GM TUBE TP SCH (09:00)
[2017-01-06] MEDS: OLANZAPINE 5 MG/TAB.RAPDIS PO SCH ×2 (09:00→13:16)
[2017-01-06] MEDS: GENTAMICIN 0.1% OINT 15 GM TUBE TP SCH (09:00)
[2017-01-06] MEDS: MUPIROCIN OINT 2% 22 GM TUBE TP SCH ×2 (09:18→21:30)
--- NOTE | 2017-01-06 09:29 | NUR ---
RN NOTES PT REFUSED ALL MORNING MEDS , EDUCATED PT REGARDING THE RISKS OF NOT TAKING HIS MEDS ,PT STILL REFUSED.
--- NOTE | 2017-01-06 11:00 | NUR ---
RN NOTES PT REFUSED TO HAVE HEMO DIALYSIS AT THIS TIME .
--- NOTE | 2017-01-06 11:56 | NUR ---
RN NOTES PT REFUSED CHEST X-RAY FOR THE SECOND TIME , NOTIFIED.
--- NOTE | 2017-01-06 12:59 | NUR ---
RN NOTES PT STATED WANTS HEMO DIALYSIS , AHMED HD NURSE NOTIFIED.
--- NOTE | 2017-01-06 13:30 | NUR ---
RN NOTES PT WANTS TO TALK TO HIS SON OR DAUGHTER , LEFT A PHONE MESSAGE FOR THE FAMILY PER PT REQUEST, NO RETURN CALL FROM THE FAMILY YET .
--- NOTE | 2017-01-06 14:45 | NUR ---
RN NOTES FOUND PT ON THE BED TRYING TO WRAP OXYGEN CORD AROUND HIS NECK, PT STATED HE IS DEPRESSED AND WANT TO . DR THURMAN NOTIFIED . CRISES TEAM EVALUATION ORDERED PER DR THURMAN . MILES CRISIS TEAM WIND TURBINE INSTALLER NOTIFIED, PT ALERT AND TALKATIVE , NO DISTRESS NOTED, BROTHER IN LAW AT THE BEDSIDE, CONTINUE TO MONITOR PT CLOSELY
[2017-01-06 16:00] VITALS: BP 102/63
--- NOTE | 2017-01-06 17:52 | NUR ---
RN NOTES BROTHER IN LAW AT THE BEDSIDE WITH THE PT AT THIS TIME , PT IS MORE COOPERATIVE AND CALM WHEN HIS FAMILY MEMBER ARE AROUND HIM .
--- NOTE | 2017-01-06 18:28 | NUR ---
RN NOTES PT STILL REFUSING ACCU CHECK, IVF AND EVENING HYGIENE CARE AND BED BATH . FAMILY AT THE BEDSIDE, L UPPER ARM MID LINE CDI, SR UP x3, CALL LIGHT WITHIN EASY REACH. SON IN LAW AT THE BEDSIDE, WILL ENDORSE TO AIR TANK ASSEMBLER NURSE FOR CONTINUITY OF CARE .
--- NOTE | 2017-01-06 19:25 | NUR ---
RN MS INITIAL NOTE PT RECEIVED IN NO ACUTE DISTRESS. PT HAS ANGER TENDENCIES AND WHEN IN THE ROOM THERE WAS A DIRECTOR OF GROUP COUNSELING PROGRAM REPORTING LOW 02 SAT. WHEN CHECKED IT WAS 93% ON 5L OF 02. DIALYSIS NURSE IN ROOM. WILL ENSURE SAFET AND COMFORT MEASURES.
[2017-01-06 20:00] VITALS: BP 124/64
[2017-01-06] MEDS: PREGABALIN 25 MG CAPSULE PO SCH (22:38)
[2017-01-07] MEDS: IV D5/ 0.9% NACL 1,000 ML IV PRN (00:53)
[2017-01-07 02:00] VITALS: BP 117/63
[2017-01-07 04:00] VITALS: BP 117/63
[2017-01-07 07:23] LABS: BASOPHILS % (AUTO) 0.3 % (0.0-2.0); EOSINOPHILS # (AUTO) 0.1 /CMM (0.0-0.7); HEMATOCRIT 31 % (39-51); HEMOGLOBIN 9.9 g/dL (13.5-17.5); LYMPHOCYTES # (AUTO) 0.2 /CMM (0.8-4.8); LYMPHOCYTES % (AUTO) 4.6 % (20.0-44.0); MEAN CORPUSCULAR HEMOGLOBIN 28 PG (26.0-33.0); MEAN CORPUSCULAR HGB CONC 32 g/dl (31.0-36.0); MEAN CORPUSCULAR VOLUME 87 fL (80-96); MONOCYTES # (AUTO) 0.7 /CMM (0.1-1.30); MONOCYTES % (AUTO) 12.5 % (2.0-12.0); NEUTROPHILS # (AUTO) 4.4 /CMM (1.8-8.9); NEUTROPHILS % (AUTO) 80.6 % (43.0-81.0); PLATELET COUNT (AUTO) 75 /CMM (150-450); RDW COEFFICIENT OF VARIATION 20.8 (11.5-15.0); RED BLOOD CELL COUNT(AUTO) 3.58 MIL/uL (4.5-6.0); WHITE BLOOD COUNT (AUTO) 5.4 K/uL (4.3-11.0)
[2017-01-07] MEDS: PANTOPRAZOLE 40 MG TABLET.DR PO SCH (07:30)
[2017-01-07] MEDS: BLOOD SUGAR DIAGNOSTIC 1 EACH STRIP IN SCH ×4 (07:30→22:29)
[2017-01-07 07:37] LABS: CALCIUM, SERUM 8.1 mg/dL (8.5-10.1); CARBON DIOXIDE 30 mmol/L (21-32); CHLORIDE 103 mmol/L (98-107); CREATININE 4.2 mg/dL (0.6-1.3); GLUCOSE 94 mg/dL (74-106); PHOSPHORUS 3.2 mg/dL (2.5-4.9); POTASSIUM 3.8 mmol/L (3.5-5.1); SODIUM SERUM 144 mmol/L (136-145); UREA NITROGEN, BLOOD 32 mg/dL (7-18)
[2017-01-07 08:00] VITALS: BP 113/79
[2017-01-07] MEDS: SEVELAMER CARBONATE 800 MG TABLET PO SCH ×3 (08:00→18:21)
[2017-01-07 09:29] LABS: EOSINOPHILS % (MANUAL) 1 % (0-4); LYMPHOCYTES % (MANUAL) 6 % (16-48); MONOCYTES % (MANUAL) 9 % (0-11.0); NEUTROPHILS % (MANUAL) 84 (42-76)
[2017-01-07] MEDS: VIT B CMPLX 3/FA/VIT C/BIOTIN 1 TAB TABLET PO SCH (09:50)
[2017-01-07] MEDS: CINACALCET HCL 30 MG TABLET PO SCH (09:50)
[2017-01-07] MEDS: ASPIRIN 81 MG TAB.CHEW PO SCH (09:50)
[2017-01-07] MEDS: GENTAMICIN 0.1% OINT 15 GM TUBE TP SCH (09:51)
[2017-01-07] MEDS: HYDROGEL DRESSING 90 GM TUBE TP SCH (09:51)
[2017-01-07] MEDS: MUPIROCIN OINT 2% 22 GM TUBE TP SCH ×2 (09:51→21:41)
[2017-01-07] MEDS: OLANZAPINE 5 MG/TAB.RAPDIS PO SCH ×2 (09:51→18:21)
[2017-01-07] MEDS: PROSOURCE / PROSTAT (PYXIS) 30 ML UDC GT SCH (09:57)
[2017-01-07 12:00] VITALS: BP 117/63
[2017-01-07] MEDS: LEVOFLOXACIN (250MG) 250 MG TABLET PO SCH (14:26)
[2017-01-07 16:00] VITALS: BP 99/68
--- NOTE | 2017-01-07 19:20 | NUR ---
RN MS INITIAL NOTE PT RECEIVED IN NO ACUTE DISTRESS. PT HAS ANGER TENDENCIES AND WHEN IN THE ROOM THERE WAS A ORNAMENTAL METAL WORKER HELPER REPORTING LOW 02 SAT. WHEN CHECKED IT WAS 93% ON 5L OF 02. DIALYSIS NURSE IN ROOM. WILL ENSURE SAFET AND COMFORT MEASURES.
[2017-01-07 20:00] VITALS: BP 112/76
[2017-01-07] MEDS: PREGABALIN 25 MG CAPSULE PO SCH (22:01)
[2017-01-08 04:00] VITALS: BP 109/68
--- NOTE | 2017-01-08 05:52 | NUR ---
RN MS CLOSING NOTE PT REMAINS IN NO ACUTE DISTRESS. SITTER AT BEDSIDE STILL. ALL VITALS WNL. ALL ORDERS CARRIED OUT. WOUND CARE DONE ORDERED. COMFORT AND SAFETY MEASURES ENSURED. WILL ENDORSE CARE TO AM NURSE.
[2017-01-08] MEDS: PANTOPRAZOLE 40 MG TABLET.DR PO SCH (07:30)
[2017-01-08] MEDS: BLOOD SUGAR DIAGNOSTIC 1 EACH STRIP IN SCH ×2 (07:30→14:11)
--- NOTE | 2017-01-08 07:35 | NUR ---
RN NOTES RECEIVED PT FROM NEUROPSYCHOLOGY DIRECTOR IN STABLE CONDITION RESTING IN BED WITH SITTER AT BEDSIDE. A&OX3 WITH PERIODS OF CONFUSION. MONICO PICC LINE DRESSING INTACT. 2L NS NO SOB OR DISTRESS NOTED. SIDE RAILS UPX3, BED LOCKED AND IN LOWEST POSITION, CALL LIGHT WITHIN REACH, WILL CONT TO MONITOR.
[2017-01-08 08:00] VITALS: BP 105/63
[2017-01-08] MEDS: SEVELAMER CARBONATE 800 MG TABLET PO SCH ×2 (08:00→13:00)
--- NOTE | 2017-01-08 08:15 | NUR ---
RN NOTES PT REFUSING AM ACCUCHECK, WILL TRY AGAIN. EDUCATION DONE.
--- NOTE | 2017-01-08 08:30 | NUR ---
RN NOTES PT REFUSING AM MEDS AND BREAKFAST TRAY. WILL TRY AGAIN WITH THE SITTER.
[2017-01-08] MEDS: CINACALCET HCL 30 MG TABLET PO SCH (09:00)
[2017-01-08] MEDS: OLANZAPINE 5 MG/TAB.RAPDIS PO SCH (09:00)
[2017-01-08] MEDS: VIT B CMPLX 3/FA/VIT C/BIOTIN 1 TAB TABLET PO SCH (09:00)
[2017-01-08] MEDS: GENTAMICIN 0.1% OINT 15 GM TUBE TP SCH (09:00)
[2017-01-08] MEDS: PROSOURCE / PROSTAT (PYXIS) 30 ML UDC GT SCH (09:00)
[2017-01-08] MEDS: ASPIRIN 81 MG TAB.CHEW PO SCH (09:00)
[2017-01-08] MEDS: HYDROGEL DRESSING 90 GM TUBE TP SCH (09:00)
[2017-01-08] MEDS: MUPIROCIN OINT 2% 22 GM TUBE TP SCH (09:30)
--- NOTE | 2017-01-08 10:32 | NUR ---
RN NOTES CHARGE NURSE ATTEMPTED ACCUCHECK, PT STILL REFUSED. AM MEDS REFUSED WELL. DR. KIRBY AWARE.
--- NOTE | 2017-01-08 12:15 | NUR ---
RN NOTES PT REFUSED NOON ACCUCHECK AND MEDS, EDUCATION DONE, WILL TRY AGAIN.
[2017-01-08 16:00] VITALS: BP 101/73
[2017-01-08] MEDS ORDERED: AMIN30LI4 PO (18:01)
[2017-01-08] MEDS ORDERED: OLAN2.5T3 PO (18:01)
[2017-01-08] MEDS ORDERED: PANT40TA4 PO (18:01)
[2017-01-08] MEDS ORDERED: ALLA266C2 TP (18:01)
[2017-01-08] MEDS ORDERED: ONDA4VIA30 IVP (18:01)
[2017-01-08] MEDS ORDERED: ACET-868 PO (18:01)
[2017-01-08] MEDS ORDERED: ALBU20VI2 IV (18:01)
[2017-01-08] MEDS ORDERED: GEL100GE TP ×2 (18:01)
[2017-01-08] MEDS ORDERED: LEVO500T90 PO (18:01)
[2017-01-08] MEDS ORDERED: BLOO-668 IN (18:01)
[2017-01-08] MEDS ORDERED: NUTR100037 PO (18:01)
[2017-01-08] MEDS ORDERED: LIDO35.4 TP (18:01)
[2017-01-08] MEDS ORDERED: OXYC-128 PO (18:01)
[2017-01-08] MEDS ORDERED: BISA10SU8 RC (18:01)
== END 2017-01-08 17:42 | DRG 853 ==
LOC: ER 17:55 → TELE1 20:58 → MEDSG1 12-15 15:08 → UNDODISIN 12-16 15:04 → ICU 12-19 08:51 → TELE1 12-30 22:07 → MEDSG1 12-31 08:52 → GPSOV1 01-08 16:56
PROVIDERS: ADMIT Nurse Practitioner Acute Care; ATTEND Nurse Practitioner Acute Care
PROC: 05H533Z Insertion of Infusion Device into Right Subclavian Vein, Percutaneous Approach (ICD-10-PCS; 2016-12-17)
PROC: B546ZZA Ultrasonography of Right Subclavian Vein, Guidance (ICD-10-PCS; 2016-12-17)
PROC: 0QBN0ZZ Excision of Right Metatarsal, Open Approach (ICD-10-PCS; principal; 2016-12-19)
PROC: 5A1955Z Respiratory Ventilation, Greater than 96 Consecutive Hours (ICD-10-PCS; 2016-12-19)
PROC: 0BH17EZ Insertion of Endotracheal Airway into Trachea, Via Natural or Artificial Opening (ICD-10-PCS; 2016-12-19)
PROC: 5A09357 Assistance with Respiratory Ventilation, Less than 24 Consecutive Hours, Continuous Positive Airway Pressure (ICD-10-PCS; 2016-12-19)
PROC: 02HV33Z Insertion of Infusion Device into Superior Vena Cava, Percutaneous Approach (ICD-10-PCS; 2016-12-19)
DX: A41.9 Sepsis, unspecified organism (principal); I21.4 Non-ST elevation (NSTEMI) myocardial infarction; J96.21 Acute and chronic respiratory failure with hypoxia; R65.21 Severe sepsis with septic shock; J18.9 Pneumonia, unspecified organism; I50.33 Acute on chronic diastolic (congestive) heart failure; J90 Pleural effusion, not elsewhere classified; G93.40 Encephalopathy, unspecified; N18.6 End stage renal disease; J96.22 Acute and chronic respiratory failure with hypercapnia; D61.818 Other pancytopenia; K80.00 Calculus of gallbladder with acute cholecystitis without obstruction; I13.2 Hypertensive heart and chronic kidney disease with heart failure and with stage 5 chronic kidney disease, or end stage renal disease; E87.2 Acidosis; E11.52 Type 2 diabetes mellitus with diabetic peripheral angiopathy with gangrene; D68.59 Other primary thrombophilia; M86.9 Osteomyelitis, unspecified; L97.414 Non-pressure chronic ulcer of right heel and midfoot with necrosis of bone; R18.8 Other ascites; L03.115 Cellulitis of right lower limb; E27.40 Unspecified adrenocortical insufficiency; J98.11 Atelectasis; S27.9XXA Injury of unspecified intrathoracic organ, initial encounter; S22.42XA Multiple fractures of ribs, left side, initial encounter for closed fracture; I11.0 Hypertensive heart disease with heart failure; E11.22 Type 2 diabetes mellitus with diabetic chronic kidney disease; I48.91 Unspecified atrial fibrillation; E11.9 Type 2 diabetes mellitus without complications; Z99.2 Dependence on renal dialysis; Z79.82 Long term (current) use of aspirin; E11.42 Type 2 diabetes mellitus with diabetic polyneuropathy; E11.621 Type 2 diabetes mellitus with foot ulcer; E11.69 Type 2 diabetes mellitus with other specified complication; Z91.19 Patient's noncompliance with other medical treatment and regimen; E78.5 Hyperlipidemia, unspecified; Z91.15 Patient's noncompliance with renal dialysis; Z86.14 Personal history of Methicillin resistant Staphylococcus aureus infection; Z87.891 Personal history of nicotine dependence; F31.9 Bipolar disorder, unspecified; D63.8 Anemia in other chronic diseases classified elsewhere; I25.2 Old myocardial infarction; L89.892 Pressure ulcer of other site, stage 2; I25.10 Atherosclerotic heart disease of native coronary artery without angina pectoris; L97.519 Non-pressure chronic ulcer of other part of right foot with unspecified severity; E11.65 Type 2 diabetes mellitus with hyperglycemia; E87.70 Fluid overload, unspecified; E87.5 Hyperkalemia; I27.2 Other secondary pulmonary hypertension; N28.1 Cyst of kidney, acquired; Z79.899 Other long term (current) drug therapy; B96.5 Pseudomonas (aeruginosa) (mallei) (pseudomallei) as the cause of diseases classified elsewhere; Z22.322 Carrier or suspected carrier of Methicillin resistant Staphylococcus aureus; B95.61 Methicillin susceptible Staphylococcus aureus infection as the cause of diseases classified elsewhere; I70.0 Atherosclerosis of aorta; I07.1 Rheumatic tricuspid insufficiency; F29 Unspecified psychosis not due to a substance or known physiological condition; X58.XXXA Exposure to other specified factors, initial encounter; Y92.009 Unspecified place in unspecified non-institutional (private) residence as the place of occurrence of the external cause
CPT/HCPCS: 31720; 36415; 36569; 36600; 71010-TC; 73630-TC; 76700-TC; 80048-TC; 80053-TC; 80061-TC; 80076-TC; 80202-TC; 82533; 82553-TC; 82803-TC; 82962-TC; 83605-TC; 83735-TC; 84100-TC; 84478-TC; 84484-TC; 85025-TC; 85610-TC; 85730-TC; 86704; 86705; 86706; 86707; 86803; 87040-TC; 87070-TC; 87081-TC; 87186-TC; 90935-TC; 92526; 92611-TC; 93307-TC; 94002-TC; 94003-TC; 94762-TC; 97110-TC; 97530-TC; 97535-TC; A4216; A4217; A4606; A6248; A6402; A6403; C1751; J1644; J1720; J1815; J2185; J2270; J2405; J2543; J3370; J3490; J7040; J7042; J7050; J7060; P9047; Z7610

== ENCOUNTER 2017-01-08 17:31 | Inpatient (IN) | payer MEDICARE, MEDICAID ==
[~2017-01-08] VITALS: Ht 165.1 cm; Wt 66.2 kg
[~2017-01-08 17:31] MED LIST changes: -AMLO5TAB2 PO; +ASPI81TA2 PO; +CETI-102 PO; +CINA30TA PO; -CIPR5DRO18 LEFTEYE; -CLOP75TA2 PO; +GENT30OI2 TP; +LEVO250T2 PO; +METH4TAB16 PO; +MUPI22OI7 TP; -NIFE60TA9 PO; -PRED5DRO17 LEFTEYE; +PREG75CA PO; +SEVE800T8 PO; -SIMV10TA6 PO; +VANC1PLA10 IV; +VIT1TABL44 PO; -[UNRECOGNIZED DRUG - CODE] PO
--- NOTE | 2017-01-08 17:56 | NUR ---
DR. BATES MADE AWARE OF THE ADMISSION AND WITH ORDERS.
[2017-01-08] MEDS ORDERED: MAG HYDROX/AL HYDROX/SIMETH 30 ML UDC PO PRN (18:00)
[2017-01-08] MEDS ORDERED: ACETAMINOPHEN 325 MG TABLET PO PRN ×2 (18:00→20:30)
[2017-01-08] MEDS ORDERED: MAGNESIUM HYDROXIDE 30 ML UDC PO PRN (18:00)
[2017-01-08] MEDS ORDERED: LORAZEPAM 0.5 MG TABLET PO PRN (18:00)
[2017-01-08] MEDS ORDERED: ZOLPIDEM TARTRATE 5 MG TABLET PO PRN (18:00)
[2017-01-08] MEDS ORDERED: LIDO35.4 TP (18:01)
[2017-01-08] MEDS ORDERED: ONDA4VIA30 IVP (18:01)
[2017-01-08] MEDS ORDERED: ACET-868 PO (18:01)
[2017-01-08] MEDS ORDERED: GEL100GE TP ×2 (18:01)
[2017-01-08] MEDS ORDERED: AMIN30LI4 PO (18:01)
[2017-01-08] MEDS ORDERED: BLOO-668 IN (18:01)
[2017-01-08] MEDS ORDERED: BISA10SU8 RC (18:01)
[2017-01-08] MEDS ORDERED: ALLA266C2 TP (18:01)
[2017-01-08] MEDS ORDERED: OLAN2.5T3 PO (18:01)
[2017-01-08] MEDS ORDERED: NUTR100037 PO (18:01)
[2017-01-08] MEDS ORDERED: OXYC-128 PO (18:01)
[2017-01-08] MEDS ORDERED: LEVO500T90 PO (18:01)
[2017-01-08] MEDS ORDERED: ALBU20VI2 IV (18:01)
[2017-01-08] MEDS ORDERED: PANT40TA4 PO (18:01)
--- NOTE | 2017-01-08 18:59 | NUR ---
RN NOTES PT RESTING IN BED WITH SITTER AT BEDSIDE. STILL CONTINUES TO REFUSE ACCUCHECK AND MEDICATIONS. WILL ENDORSE TO ONCOMING SHIFT.
[2017-01-08 20:00] VITALS: BP 94/55
[2017-01-08] MEDS ORDERED: LIDOCAINE 5% OINT 35.44 GM TUBE TP PRN (20:30)
[2017-01-08] MEDS ORDERED: ONDANSETRON HCL/PF 4 MG/2 ML VIAL IVP PRN (20:30)
[2017-01-08] MEDS ORDERED: oxyCODONE/APAP (5/325 MG) 1 UDTAB TABLET PO PRN (20:30)
[2017-01-08] MEDS ORDERED: BISACODYL SUPP (10 MG) 10 MG/SUPP.RECT SUPP.RECT RC PRN (20:30)
[2017-01-08] MEDS ORDERED: Z GUARD REMEDY 2 OZ OINT TP PRN (20:30)
--- NOTE | 2017-01-08 21:00 | NUR ---
gps rn notes due meds and accucheck refused by pts , explain r/b still pts refused . will try again to offer later.
[2017-01-08] MEDS: PREGABALIN 25 MG CAPSULE PO SCH (22:00)
[2017-01-08] MEDS: BLOOD SUGAR DIAGNOSTIC 1 EACH STRIP IN SCH (22:00)
--- NOTE | 2017-01-09 | NUR ---
gps rn notes body check done noted with multiple wounds noted , treatment done , pts on renal diet puree diet.
[2017-01-09 04:00] VITALS: BP 100/54
--- NOTE | 2017-01-09 06:54 | NUR ---
gps rn notes received and admit pts overflow from gps with dx of depression , on hold 5150 , admission routine care rendered ,admission verification of order by ishmael rao , v/s check stable afebrile all needs attended too call light with in reach , on 1:1 sitter . with ml on right ua intact and patent , pts had hd today at 1 liter out, kept pts clean dry and comfortable.
--- NOTE | 2017-01-09 07:02 | NUR ---
gps rn notes tried to offer again the meds pts again still refusing .
--- NOTE | 2017-01-09 07:05 | NUR ---
gps rn notes will endorse to rn day shift for continuity og care.
--- NOTE | 2017-01-09 07:15 | NUR ---
RN INITIAL NOTES: REC'D PT AWAKE ON BED, A/O X2-3, NOT IN ANY DISTRESS, ABLE TO MAKE NEEDS KNOWN. ON O2 AT 2 LPM/NC, NO SOB. BASS MONICO PICC LINE, SL, FLUSHED, PATENT & INTACT W/ NO S/SX OF INFECTION/INFILTRATION NOTED. HAS L FEMORAL HD CATH IN PLACE, INTACT. PT STILL NOTED SIGNS OF DEPRESSION, REFUSING SOME TREATMENT AND CARE. HAS 1:1 SITTER AT BEDSIDE. PROVIDED COMFORT & SAFETY MEASURES. BED KEPT LOW & IN LOCKED POS. CALL LIGHT PLACED W/IN REACH. WILL CONTINUE TO MONITOR AND ATTEND NEEDS.
[2017-01-09] MEDS: BLOOD SUGAR DIAGNOSTIC 1 EACH STRIP IN SCH ×4 (07:30→21:14)
[2017-01-09] MEDS: PANTOPRAZOLE 40 MG TABLET.DR PO SCH (07:30)
[2017-01-09 07:50] LABS: ALANINE AMINOTRANSFERASE 11 U/L (12-78); ALBUMIN 2.7 g/dL (3.4-5.0); ALKALINE PHOSPHATASE 83 U/L (46-116); ASPARTATE AMINOTRANSFERASE 17 U/L (15-37); BILIRUBIN,TOTAL 0.7 mg/dL (0.2-1.0); CARBON DIOXIDE 33 mmol/L (21-32); CHLORIDE 103 mmol/L (98-107); GLUCOSE 104 mg/dL (74-106); POTASSIUM 3.6 mmol/L (3.5-5.1); SODIUM SERUM 142 mmol/L (136-145); TOTAL PROTEIN, SERUM 7.3 g/dL (6.4-8.2); UREA NITROGEN, BLOOD 30 mg/dL (7-18)
[2017-01-09 08:00] VITALS: BP 106/71
[2017-01-09] MEDS: SEVELAMER CARBONATE 800 MG TABLET PO SCH ×3 (08:00→17:42)
[2017-01-09] MEDS: CINACALCET HCL 30 MG TABLET PO SCH ×2 (09:00→12:32)
[2017-01-09] MEDS: VIT B CMPLX 3/FA/VIT C/BIOTIN 1 TAB TABLET PO SCH ×2 (09:00→12:32)
[2017-01-09] MEDS: ASPIRIN 81 MG TAB.CHEW PO SCH ×2 (09:00→12:25)
--- NOTE | 2017-01-09 09:24 | NUR ---
WOUND CARE CONSULT: PT PRESENTS WITH SACRAL ULCER, STAGE 2, PRESENT ON ADMISSION. PT HAS LOWER EXTREMITY WOUNDS, ALSO PRESENT ON ADMISSION. LOWER EXTREMITY DRESSINGS DRY AND INTACT AT THIS TIME. DEFER TO AIR CONDITIONING INSULATION INSTALLER FOR LOWER EXTREMITY WOUND TREATMENT PLAN. PT UNCOOPERATIVE AND COMBATIVE AT TIMES. PT ON LOLIS ISOFLEX LOW AIRLOSS BED. ALL SKIN PROTECTION AND WOUND RECOMMENDATIONS DISCUSSED WITH NURSING STAFF. WILL SEE PRN. HUI IN AGREEMENT WITH PLAN OF CARE. Addendum: 01/09/17 at 0926 by RAJWINDER GREGORY WNDNU Amended: Links added.
[2017-01-09] MEDS ORDERED: HYDROGEL DRESSING 90 GM TUBE TP PRN (09:30)
[2017-01-09] MEDS: HYDROGEL DRESSING 90 GM TUBE TP SCH (10:15)
--- NOTE | 2017-01-09 10:15 | NUR ---
RN NOTES: PT SEEN & EXAMINED BY DR. BATES W/ ORDERS MADE & CARRIED OUT. 14 DAY HOLD PLACED IN THE CHART.
[2017-01-09] MEDS: OLANZAPINE 2.5 MG TABLET PO SCH ×2 (12:26→17:43)
[2017-01-09] MEDS: RENAL NOVASOURCE (8OZ) 1 EA BOX PO PRN ×2 (12:30→17:52)
[2017-01-09] MEDS: MUPIROCIN OINT 2% 22 GM TUBE TP SCH ×2 (12:30→21:05)
--- NOTE | 2017-01-09 13:00 | NUR ---
RN NOTES: PT'S CARE TRANSFERRED TO NATACHA MAYO. NO ACUTE CHANGES W/IN SHIFT. PT ABLE TO TAKE SOME OF HIS MEDICATIONS. PT STILL HAS 1:1 SITTER AT BEDSIDE.
--- NOTE | 2017-01-09 13:08 | NUR ---
received pt in bed a/o x2 . pt in 2L , in cannula, pt risk for fall, have a sitter, pt in puree diet, .
--- NOTE | 2017-01-09 14:00 | NUR ---
Initial Discharge Note: Per pt, he lives home alone [address] [place] [address]. ([phone]). other sales support worker attempted to contact patient's sister Kenyetta Decker ([phone]). However, pt. answered the phone. SW asked pt for sister's phone number and pt. did not want to provide SW with sisters phone number. SW will help form a safe and proper discharge.
--- NOTE | 2017-01-09 17:30 | NUR ---
FLIGHT DISPATCHER NOTES PT REFUSED ACCU CHECK
--- NOTE | 2017-01-09 18:00 | NUR ---
AIRPORT ATTENDANT NOTES PT JUST FINISH DINNER, MEDS GIVEN MD ORDERED
[2017-01-09 18:55] VITALS: BP 104/49
[2017-01-09] MEDS ORDERED: FEE PK DOSING 1 MIN EA MC ONE (19:16)
--- NOTE | 2017-01-09 19:31 | NUR ---
AUTO BODY REPAIRER FIBERGLASS CLOSING NOTES PATIENT AWAKE AND RESTING COMFORTABLY IN BED. A/O X 4 AND VERBALLY RESPONSIVE. ALL NEEDS AND CARE ATTENDED WELL. ON 02 VIA N/C AT 2LPM, TOLERATING WELL WITH NO SOB NOTED. NO ACUTE CHANGES THROUGHOUT SHIFT. PATIENT ENDORSED TO THE PRINTED CIRCUIT LAYOUT TAPER NURSE FOR WAYNE.
[2017-01-09 20:00] VITALS: BP 100/65
[2017-01-09] MEDS ORDERED: VANCOMYCIN 1 GM in IV D5W 250 ML IV ONE (20:00)
--- NOTE | 2017-01-09 20:00 | NUR ---
gps rn notes received pts on bed awake alert and verbally responsive , on 1:1 sitter d/t 5250 , on 2 liters of o2 via nc sating 98% v/s stable afebrile, no sob no distress noted levaquin po and , vancomycin 1 gm ivpb given as ordered, refused accucheck explain r/b ,pts still refusing .will try again later.
[2017-01-09] MEDS: LEVOFLOXACIN (250MG) 250 MG TABLET PO SCH (20:33)
[2017-01-09] MEDS: MIRTAZAPINE 15 MG TABLET PO SCH (21:11)
[2017-01-09] MEDS: PREGABALIN 25 MG CAPSULE PO SCH (21:11)
--- NOTE | 2017-01-09 22:00 | NUR ---
gps rn notes lyrica and remeron was not given secondary to pts refusal.explain r/b pts still refusing , will continue to monitor pts.
--- NOTE | 2017-01-10 | NUR ---
GPS RN NOTES PTS IS COMFORTABLE IN BED SLEEPING , SITTER AT BEDSIDE, NO BEHAVIOR NOTED AT THIS TIME.
[2017-01-10 04:00] VITALS: BP 110/67
--- NOTE | 2017-01-10 04:00 | NUR ---
GPS RN NOTES MORNING CARE RENDERED , V/S STABLE AFEBRILE , NO SIGNIFICANCE CHANGE NOTED.
--- NOTE | 2017-01-10 06:37 | NUR ---
GPS RN NOTES CONTINUE ON 1:1 SITTER, ON 525 , WILL ENDORSE TO RN DAY SHIFT FOR CONTINUITY OF CARE.
[2017-01-10] MEDS: BLOOD SUGAR DIAGNOSTIC 1 EACH STRIP IN SCH ×4 (07:30→22:00)
[2017-01-10] MEDS: PANTOPRAZOLE 40 MG TABLET.DR PO SCH (07:30)
[2017-01-10 08:00] VITALS: BP 111/70
--- NOTE | 2017-01-10 08:00 | NUR ---
MS RN AM NOTES: REC'D PT AWAKE ON BED, A/O X2-3, NOT IN ANY DISTRESS, ABLE TO MAKE NEEDS KNOWN. ON O2 AT 2 LPM/NC, NO SOB. BASS MONICO PICC LINE, SL, FLUSHED, PATENT & INTACT W/ NO S/SX OF INFECTION/INFILTRATION NOTED. HAS L FEMORAL HD CATH IN PLACE, INTACT. PT STILL NOTED SIGNS OF DEPRESSION, REFUSING MEDS, TREATMENT AND CARE INSPITE OF EXPLAINING ITS RISKS AND CONSEQUENCES. PT REFUSED TO BE TURNED AND REPOSITIONED MOST OF THE TIME.HAS 1:1 SITTER AT BEDSIDE. PROVIDED COMFORT & SAFETY MEASURES. BED KEPT LOW & IN LOCKED POS. CALL LIGHT PLACED W/IN REACH. WILL CONTINUE TO MONITOR AND ATTEND NEEDS.
[2017-01-10] MEDS: VIT B CMPLX 3/FA/VIT C/BIOTIN 1 TAB TABLET PO SCH (09:00)
[2017-01-10] MEDS: CINACALCET HCL 30 MG TABLET PO SCH (09:00)
[2017-01-10] MEDS: OLANZAPINE 2.5 MG TABLET PO SCH ×2 (09:00→17:00)
[2017-01-10] MEDS: ASPIRIN 81 MG TAB.CHEW PO SCH (09:55)
[2017-01-10] MEDS: SEVELAMER CARBONATE 800 MG TABLET PO SCH ×3 (09:55→17:19)
[2017-01-10] MEDS: HYDROGEL DRESSING 90 GM TUBE TP SCH (09:57)
[2017-01-10] MEDS: MUPIROCIN OINT 2% 22 GM TUBE TP SCH ×2 (09:58→21:00)
[2017-01-10] MEDS ORDERED: VANCOMYCIN 500 MG in IV D5W 100 ML IV PRN (12:00)
[2017-01-10] MEDS ORDERED: RXVAN XX (12:28)
--- NOTE | 2017-01-10 13:00 | NUR ---
HEMODIALYSIS DONE TODAY WITH 1 LITER OUTPUT.V/S STABLE.PT TOLERATED WELL.
[2017-01-10 14:40] LABS: CARBON DIOXIDE 33 mmol/L (21-32); CHLORIDE 102 mmol/L (98-107); CREATININE 3.9 mg/dL (0.6-1.3); GLUCOSE 111 mg/dL (74-106); POTASSIUM 3.8 mmol/L (3.5-5.1); SODIUM SERUM 139 mmol/L (136-145); UREA NITROGEN, BLOOD 31 mg/dL (7-18)
[2017-01-10 16:00] VITALS: BP 109/50
--- NOTE | 2017-01-10 16:00 | NUR ---
PT HAS A PENDING DISCHARGE.CALLED [facility] AND SPOKE TO CHARGE NURSE OF [facility] SAYING THAT THEY CAN'T ACCEPT THE PT DUE TO NOT UPDATED INQUIRY AND HAS TO CONSULT THEIR D.O.N FIRST FOR APPROVAL.CALLED CASE MGT,KIERA WHO STATED THAT SHE WILL CALL THE FACILITY AND CHECK WITH THEM.KIERA WILL CALL US FOR PT'S DISCHARGE STATUS.
--- NOTE | 2017-01-10 17:00 | NUR ---
CALLED KIERA BEAN MGR WHO STATED THAT THE PT WON'T BE DISCHARGE NOT TILL THURSDAY.
--- NOTE | 2017-01-10 18:00 | NUR ---
PT RESTING IN BED AND CONTINUES TO BE NON COMPLIANT WITH MEDS,REPOSITIONING AND WOUND TX INSPITE OF EXPLAINING ITS RISKS AND CONSEQUENCES.
--- NOTE | 2017-01-10 19:30 | NUR ---
MS RN NOTES: REC'D PT AWAKE ON BED, A/O X2-3, NOT IN ANY DISTRESS, ABLE TO MAKE NEEDS KNOWN. ON O2 AT 2 LPM/NC, NO SOB. BASS MONICO PICC LINE, SL, FLUSHED, PATENT & INTACT W/ NO S/SX OF INFECTION/INFILTRATION NOTED. HAS L FEMORAL HD CATH IN PLACE, INTACT. BED KEPT LOW & IN LOCKED POS. CALL LIGHT PLACED W/IN REACH. WILL CONTINUE TO MONITOR AND ATTEND NEEDS.
[2017-01-10] MEDS: PREGABALIN 25 MG CAPSULE PO SCH (22:00)
[2017-01-10] MEDS: MIRTAZAPINE 15 MG TABLET PO SCH (22:00)
--- NOTE | 2017-01-10 22:51 | NUR ---
MS RN NOTE PATIENT REFUSING ALL MEDS AT THIS TIME. EXPLAINED ALL RISKS AND BENEFITS.
[2017-01-11] VITALS: BP 90/52
--- NOTE | 2017-01-11 06:43 | NUR ---
MS RN NOTE PATIENT REFUSING AM LABS
[2017-01-11] MEDS: PANTOPRAZOLE 40 MG TABLET.DR PO SCH ×2 (06:55→08:46)
[2017-01-11] MEDS: BLOOD SUGAR DIAGNOSTIC 1 EACH STRIP IN SCH ×4 (06:55→22:40)
[2017-01-11 08:00] VITALS: BP 113/48
--- NOTE | 2017-01-11 08:00 | NUR ---
MS RN OPENING NOTE PATIENT IS ALERT AND ORIENTED x3 WITH PERIODS OF FORGETFULNESS. NO FACIAL GRIMACING NOTED FOR PAIN. NO SOB OR DISTRESS NOTED. CALL LIGHT WITHIN REACH. SAFETY MEASURES IMPLEMENTED. ABLE TO COMMUNICATE NEEDS. HAS WOUND TREATMENT TO BE DONE ON MY SHIFT. PUREED DIET, NEEDS ASSISTANCE. HAS BLOOD SUGAR MONITORING. HD CATH ON FEMORAL INTACT AND PATENT. LEFT UPPER ARM PICC LINE INTACT AND PATENT. AM LABS. WILL CONTINUE TO MONITOR
[2017-01-11] MEDS: CINACALCET HCL 30 MG TABLET PO SCH (08:46)
[2017-01-11] MEDS: VIT B CMPLX 3/FA/VIT C/BIOTIN 1 TAB TABLET PO SCH (08:46)
[2017-01-11] MEDS: SEVELAMER CARBONATE 800 MG TABLET PO SCH ×3 (08:46→17:58)
[2017-01-11] MEDS: OLANZAPINE 2.5 MG TABLET PO SCH ×2 (08:46→16:57)
[2017-01-11] MEDS: ASPIRIN 81 MG TAB.CHEW PO SCH (08:46)
[2017-01-11] MEDS: HYDROGEL DRESSING 90 GM TUBE TP SCH (08:47)
[2017-01-11] MEDS: MUPIROCIN OINT 2% 22 GM TUBE TP SCH ×2 (08:47→21:00)
--- NOTE | 2017-01-11 11:45 | NUR ---
MS RN NOTE PATIENT REFUSED ACCUCHECK X23. EXPLAINED RISKS AND BENEFITS. PATIENT STILL REFUSED. INFORMED CREATIVE WRITING PROFESSOR
[2017-01-11 16:00] VITALS: BP 98/56
--- NOTE | 2017-01-11 18:59 | NUR ---
MS RN CLOSING NOTE PATIENT IS ALERT AND ORIENTED x3 WITH PERIODS OF FORGETFULNESS. NO PAIN AT THIS TIME. NO SOB OR DISTRESS NOTED. CALL LIGHT WITHIN REACH AT ALL TIMES. SAFETY MEASURES IMPLEMENTED. ABLE TO COMMUNICATE NEEDS. PATIENT REFUSED ALL MEDICATIONS AND ACCUCHECKS. PATIENT ALSO REFUSED WOUND TREATMENT AND I EXPLAINED THE RISKS AND BENEFITS FOR ALL TREATMENT AND PATIENT STILL REFUSED SEVERAL TIMES. PER CUPOLA MELTER HELPER NURSE TO HOLD VANCO, TROUGH WAS 21. PHARMACY AWARE. PICC LINE AND HD CATH INTACT. WILL ENDORSE TO CUPOLA MELTER HELPER NURSE FOR WAYNE
[2017-01-11 20:00] VITALS: BP_SYST 101; BP_SYST 116; BP_DIAS 57; BP_DIAS 67
[2017-01-11] MEDS: LEVOFLOXACIN (250MG) 250 MG TABLET PO SCH (20:00)
[2017-01-11] MEDS: MIRTAZAPINE 15 MG TABLET PO SCH (22:00)
[2017-01-11] MEDS: PREGABALIN 25 MG CAPSULE PO SCH (22:00)
[2017-01-12 04:00] VITALS: BP 115/62
[2017-01-12] MEDS: BLOOD SUGAR DIAGNOSTIC 1 EACH STRIP IN SCH ×3 (06:52→17:30)
--- NOTE | 2017-01-12 07:09 | NUR ---
entered rm and found intact picc line on the bed.refusing meds and certain aspects of care.
--- NOTE | 2017-01-12 07:15 | NUR ---
RN INITIAL NOTES: REC'D PT ASLEEP ON BED, A/O X2, NOT IN ANY DISTRESS, EASILY AROUSABLE. ON NASAL CANULA AT 2LPM, NO SOB NOTED. NO IV ACCESS NOTED. PER NIGHT RN, PT PULLED OUT HIS MONICO PICC LINE. NO BLEEDING NOTED ON THE IV SITE. HAS L FEMORAL HD CATH IN PLACE AND INTACT. PROVIDED COMFORT & SAFETY MEASURES. BED KEPT LOW & IN LOCKED POS. CALL LIGHT PLACED W/IN REACH. WILL CONTINUE TO MONITOR AND ATTEND NEEDS.
--- NOTE | 2017-01-12 07:30 | NUR ---
RN NOTES: PT REFUSING TO DO BLOOD WORKS.
[2017-01-12 08:00] VITALS: BP 112/62
[2017-01-12] MEDS: SEVELAMER CARBONATE 800 MG TABLET PO SCH ×2 (08:00→13:00)
[2017-01-12] MEDS: CINACALCET HCL 30 MG TABLET PO SCH (09:00)
[2017-01-12] MEDS: ASPIRIN 81 MG TAB.CHEW PO SCH (09:00)
[2017-01-12] MEDS: OLANZAPINE 2.5 MG TABLET PO SCH ×2 (09:00→17:00)
[2017-01-12] MEDS: VIT B CMPLX 3/FA/VIT C/BIOTIN 1 TAB TABLET PO SCH (09:00)
--- NOTE | 2017-01-12 10:00 | NUR ---
RN NOTES: HD STARTED C/O TAO SAUNDERS RN. ABLE TO DRAW BLOOD VIA HD CATH ACCESS.
--- NOTE | 2017-01-12 10:22 | NUR ---
RN NOTES: CALLED PT'S SISTER CALLIE, AGREED TO DO PICC LINE REINSERTION TO THE PT AND ALSO IF EVER PT REFUSE IV INSERTION SHE IS OKAY TO RESTRAINT PT. CONSENT SECURED AND PLACED IN CHART. TELEPHONE CONSENT WAS MADE W/ OTHER RN.
[2017-01-12 10:47] LABS: CALCIUM, SERUM 8.2 mg/dL (8.5-10.1); CARBON DIOXIDE 31 mmol/L (21-32); CHLORIDE 101 mmol/L (98-107); CREATININE 4.9 mg/dL (0.6-1.3); GLUCOSE 92 mg/dL (74-106); POTASSIUM 4.3 mmol/L (3.5-5.1); SODIUM SERUM 139 mmol/L (136-145); UREA NITROGEN, BLOOD 44 mg/dL (7-18)
[2017-01-12] MEDS: HYDROGEL DRESSING 90 GM TUBE TP SCH (12:09)
[2017-01-12] MEDS: MUPIROCIN OINT 2% 22 GM TUBE TP SCH (12:10)
--- NOTE | 2017-01-12 12:13 | NUR ---
RN NOTES: PICC LINE REINSERTED ON MONICO C/O NATACHA DOZIER. XRAY ORDERED FOR PLACEMENT. Addendum: 01/12/17 at 1459 by ANA ROSA BANKS RN ADDENDUM: TASIA MANZANO TRIED REINSERTING PICC LINE ON OPAL D/T CXR RESULT POST MONICO PICC PLACEMENT. HOWEVER, NO PICC LINE REINSERTED ON OPAL. NOTED MONICO MIDLINE NEWLY INSERTED, FLUSHED, PATENT & INTACT, W/ GOOD VENOUS RETURN. NO ACTIVE BLEEDING ON OPAL.
--- NOTE | 2017-01-12 15:43 | NUR ---
Discharge Note: Patient [facility] [phone]) [address] [facility] [address]. Patient's son Cristi ([phone]) was informed. Patient was agreeable with the discharge plan. Patient's mood and affect are appropriate. Patient denies suicidal and homicidal ideations. Patient will follow-up with psychiatrist Dr. Nix ([phone]) at the facility. Facilitated info to IDT team who are in agreement with discharge arrangement. The multidisciplinary exitcare form was done, printed, signed, and given to the patient.
[2017-01-12 16:00] VITALS: BP 151/64
--- NOTE | 2017-01-12 16:14 | NUR ---
RN NOTES: DR. KIRBY MADE AWARE ABOUT PT BEING LETHARGIC DUE TO NOT EATING AND NOT TAKING ANY MEDS. PER MD BHARGAV DUNLAP THE PT.
--- NOTE | 2017-01-12 17:30 | NUR ---
GRASSLAND CONSERVATIONIST NOTES: PT DC'D TO [facility] ORDERED. PT REMAINS A/O X3, ABLE TO MAKE NEEDS KNOWN, NOT IN ANY DISTRESS. ON O2 AT 2LPM/NC, NO SOB. MONICO MIDLINE SL, KEPT PATENT & INTACT W/ NO S/SX OF INFECTION/ INFILTRATION NOTED. L FEMORAL HD CATH KEPT IN PLACE W/ CLEAN, DRY AND INTACT DRESSING. CARMEN ZAVALA SPOKE W/ PT REGARDING DC. WOUND CARE DONE PRIOR TO DC. REPORT GIVEN TO NATACHA TRIMBLE AT [facility]. ALL BELONGINGS INCLUDING VALUABLES AND WHEELCHAIR SENT W/ PT. BELONGING LIST CHECKED BY STOCK CHASER. NO CONCERNS IDENTIFIED AT THIS TIME. PT LEFT FACILITY IN STABLE CONDITION VIA GURNEY ACCOMPANIED BY [employer] EMT. DR. BATES MADE AWARE OF DC. Addendum: 01/15/17 at 0736 by ANA ROSA BANKS RN ADDENDUM: WOUND CARE DONE ON THE FOOT PRIOR TO DC BUT REFUSED TO TAKE PHOTOS ON HIS SACRAL AND OTHER PARTS OF HIS BODY. HE VERBALIZED AND QUESTIONING "WHY ARE YOU TAKING PICTURES OF MY BODY?!". EXPLAINED TO HIM THE REASON WHY BUT STILL STRONGLY REFUSED.
== END 2017-01-12 17:41 | DRG 881 ==
LOC: GPSOV1 17:31
PROVIDERS: ADMIT Psychiatry & Neurology Psychosomatic Medicine; ATTEND Psychiatry & Neurology Psychosomatic Medicine
PROC: 02HV33Z Insertion of Infusion Device into Superior Vena Cava, Percutaneous Approach (ICD-10-PCS; principal; 2017-01-12)
PROC: B548ZZA Ultrasonography of Superior Vena Cava, Guidance (ICD-10-PCS; 2017-01-12)
DX: F32.9 Major depressive disorder, single episode, unspecified (principal); I13.2 Hypertensive heart and chronic kidney disease with heart failure and with stage 5 chronic kidney disease, or end stage renal disease; E11.52 Type 2 diabetes mellitus with diabetic peripheral angiopathy with gangrene; M86.9 Osteomyelitis, unspecified; G93.41 Metabolic encephalopathy; J96.01 Acute respiratory failure with hypoxia; J96.02 Acute respiratory failure with hypercapnia; E46 Unspecified protein-calorie malnutrition; N18.6 End stage renal disease; E87.2 Acidosis; F32.3 Major depressive disorder, single episode, severe with psychotic features; R45.851 Suicidal ideations; I50.30 Unspecified diastolic (congestive) heart failure; E11.22 Type 2 diabetes mellitus with diabetic chronic kidney disease; F29 Unspecified psychosis not due to a substance or known physiological condition; Z99.2 Dependence on renal dialysis; I25.10 Atherosclerotic heart disease of native coronary artery without angina pectoris; Z96.41 Presence of insulin pump (external) (internal); E87.5 Hyperkalemia; E11.69 Type 2 diabetes mellitus with other specified complication; E11.621 Type 2 diabetes mellitus with foot ulcer; E78.5 Hyperlipidemia, unspecified; F41.9 Anxiety disorder, unspecified; L97.519 Non-pressure chronic ulcer of other part of right foot with unspecified severity
CPT/HCPCS: 36415; 36569; 71010-TC; 80048-TC; 80053-TC; 80202-TC; 82962-TC; 90935-TC; A6248; C1751; J3370; J7060